=== PATIENT | female | born 1955 | race Caucasian/White ===

== ENCOUNTER → 2017-10-02 09:04 | Outpatient (CLI) | payer MEDICARE, SELFPAY ==
[2017-10-02 17:27] LABS: Absolute Lymphocyte Count 3.53 X10^3/ul (0.83-4.51); Absolute Neutrophil Count 10.2 X10^3/uL (2.0-7.7); Basophil# 0.03 X10^3/uL; Basophil% 0.2 % (0-1); Eosinophil# 0.23 X10^3/uL; Eosinophils% 1.5 % (0-5); Hematocrit 48.3 % (37-47); Hemoglobin 16.4 g/dl (12.0-15.0); Lymphocyte # 3.53 X10^3/ul (4.0); Lymphocyte % 23.5 % (19-41); Mean Corpuscular Hgb 31.3 pg (27.0-32.0); Mean Corpuscular Volume 92.2 fL (81-99); Mean Platelet Vol. 10.3 fl (6.2-12.0); Monocyte# 0.93 X10^3/uL; Monocyte% 6.2 % (0-10); Neutrophil # 10.24 X10^3/uL (2.7-7.7); Neutrophil % 68.3 % (47-70); Platelet Count 232 K/mm3 (150-450); RBC Distribution Width CV 13.3 % (11.6-14.6); RBC Distribution Width SD 44.1 fl (35.1-43.9); Red Blood Count 5.24 M/mm3 (4.2-5.4)
[2017-10-02 17:46] LABS: ALB/GLOB Ratio 0.9 RATIO (0.9-2.4); AST(SGOT) 31 U/L (15-37); Alanine Aminotransfer ALT/SGPT 38 U/L (13-56); Albumin, Serum 3.8 g/dL (3.2-5.0); Alkaline Phosphatase 104 U/L (45-117); Anion Gap 10 (5-15); BUN 8 mg/dL (7-18); BUN/Creat Ratio 8.8 RATIO (10-20); Calcium,Total 8.9 mg/dL (8.5-10.1); Chloride 105 mmol/L (98-107); Creatinine, Serum 0.91 mg/dL (0.55-1.02); EST Glomerular Filtration Rate 66 mL/min (>60); Est Glom Filt Rate - Afr Amer 80 mL/min (>60); Globulin 4.3 g/dL (2.2-4.2); Glucose 90 mg/dL (74-106); Protein, Total 8.1 g/dL (6.4-8.2); Sodium Level 140 mmol/L (136-145); Thyroid Stim Hormone (TSH) 1.59 uIU/mL (0.358-3.74)
[2017-10-02 17:50] LABS: POSITIVE COUNT NO; POSITIVE DIFFERENTIAL NO; POSITIVE MORPHOLOGY NO
[2017-10-03 08:59] LABS: Vitamin D,25 Hydroxy 44.9 ng/mL (29.95-100.01)
[2017-10-05 10:18] LABS: Hep C Antibodies 0.1 s/co ratio (0.0-0.9)
== END ==
PROVIDERS: Family Provider Family Medicine Geriatric Medicine; PCP Family Medicine Geriatric Medicine; Visit Provider Family Medicine Geriatric Medicine
DX: E11.9 Type 2 diabetes mellitus without complications (principal); E55.9 Vitamin D deficiency, unspecified; I10 Essential (primary) hypertension; Z13.89 Encounter for screening for other disorder
CPT/HCPCS: 36415; 80053; 82306; 84443; 85025; 86803

== ENCOUNTER → 2017-11-04 14:16 | Outpatient (CLI) | payer MEDICARE, SELFPAY | PROVIDERS: Family Provider Family Medicine Geriatric Medicine; PCP Family Medicine Geriatric Medicine; Visit Provider Family Medicine Geriatric Medicine | DX: Z87.891 Personal history of nicotine dependence (principal); Z12.2 Encounter for screening for malignant neoplasm of respiratory organs | CPT/HCPCS: G0297 ==

== ENCOUNTER → 2018-10-08 | Outpatient (CLI) | payer MEDICARE, SELFPAY ==
[2018-10-08 17:17] LABS: Absolute Lymphocyte Count 4.49 X10^3/uL (0.83-4.51); Absolute Neutrophil Count 5.4 X10^3/uL (2.0-7.7); Basophil# 0.07 X10^3/uL; Basophil% 0.6 % (0-1); Eosinophil# 0.17 X10^3/uL; Eosinophils% 1.6 % (0-5); Hemoglobin 15.4 g/dL (12.0-15.0); Lymphocyte # 4.49 X10^3/ul (4.0); Lymphocyte % 41.2 % (19-41); Mean Corp Hgb Conc 33.5 g/dL (32-36); Mean Corpuscular Hgb 30.9 pg (27.0-32.0); Mean Corpuscular Volume 92.2 fL (81-99); Mean Platelet Vol. 10.6 fl (6.2-12.0); Monocyte# 0.76 X10^3/uL; NRBC Flagged by Analyzer 0 % (0-5); Neutrophil # 5.36 X10^3/uL (2.7-7.7); Neutrophil % 49.2 % (47-70); Platelet Count 272 K/mm3 (150-450); RBC Distribution Width SD 44.2 fl (35.1-43.9); Red Blood Count 4.99 M/mm3 (4.2-5.4); White Blood Count 10.9 K/mm3 (4.4-11.0)
[2018-10-08 17:45] LABS: ALB/GLOB Ratio 0.9 RATIO (0.9-2.4); AST(SGOT) 30 U/L (15-37); Alanine Aminotransfer ALT/SGPT 34 U/L (13-56); Albumin, Serum 3.6 g/dL (3.2-5.0); Alkaline Phosphatase 100 U/L (45-117); Anion Gap 10 (5-15); BUN 10 mg/dL (7-18); BUN/Creat Ratio 11.1 RATIO (10-20); Calcium,Total 8.9 mg/dL (8.5-10.1); Chloride 105 mmol/L (98-107); EST Glomerular Filtration Rate 68 mL/min (>60); Est Glom Filt Rate - Afr Amer 82 mL/min (>60); Globulin 4.1 g/dL (2.2-4.2); Glucose 89 mg/dL (74-106); Potassium 3.8 mmol/L (3.5-5.1); Protein, Total 7.7 g/dL (6.4-8.2); Sodium Level 138 mmol/L (136-145)
== END | disposition home or self-care (01) ==
LOC: POLAB3 13:08
PROVIDERS: Family Provider Family Medicine Geriatric Medicine; PCP Family Medicine Geriatric Medicine; Visit Provider Family Medicine Geriatric Medicine
DX: E11.9 Type 2 diabetes mellitus without complications (principal); E55.9 Vitamin D deficiency, unspecified; I10 Essential (primary) hypertension
CPT/HCPCS: 36415; 80053; 82306; 84443; 85025

== ENCOUNTER → 2018-11-17 12:47 | Outpatient (CLI) | payer MEDICARE, SELFPAY ==
[2018-11-17 12:25] VITALS: BMI 30.8
--- NOTE | 2018-11-17 12:50 | CT_ITS ---
STUDY: LOW DOSE CT LUNG CANCER SCREENING REASON FOR EXAM: Female, 63 years old. RADIATION DOSAGE (If Supplied By Facility): CTDIvol = ( 3.02 ) mGy, DLP = ( 86.11 ) mGycm TECHNIQUE: No contrast was administered. Low dose technique was utilized (average mAS-38 and kVp 120). 1.25 mm axial source images with a slice interval of 1.25-mm were reconstructed in lung windows. 2.5 mm axial source images with a slice interval of 2.5-mm were reconstructed in lung windows. 5.0 mm axial source images with a slice interval of 5.0-mm were reconstructed in soft tissue windows. Nodule measured using lung windows on PACS and/or independent workstation with automated measurement of minimum and maximum diameter. Nodule measurement reported as average diameter rounded to the nearest whole number. Growth is defined as an increase ins size of greater than 1.5 mm. COMPARISON: CT chest 11/04/2017. FINDINGS: Lung nodules Stable noncalcified 3 mm pulmonary nodule in the right upper lobe on series 2 image 93. Stable Noncalcified 4 mm pulmonary nodule in the right upper lobe on image 115. Densely calcified pulmonary nodule along the fissure in the right upper lobe anterior anterior segment that is stable compared to prior imaging. No new or enlarging pulmonary nodule. Lungs COPD: Mild. Fibrosis: None. Lymph nodes: There are calcified right hilar lymph nodes. No adenopathy. Other findings: None. Pleural space Effusion: None. Calcification: None. Thickening: None. Heart Heart size: Normal. Coronary calcification: None. Pericardial effusion: None. Other findings: Trace aortic atherosclerotic disease. Upper abdomen: None. Thorax: None. Base of neck: None. CT/Low Dose CT Lung Screening IMPRESSION: Lung-RADS category 2 - Continue annual screening with LDCT in 12 months. IMPORTANT NOTES FOR USE: ACR Lung-RADS Version 1.0 Assessment Categories Release Date: July 19, 2013 Category: Coded 0-4 bases on nodule(s) with highest degree of suspicion. Negative screen is defined as categories 1 and 2; a positive screen is defined as categories 3 and 4. Category 3 and 4A nodules that are unchanged on interval CT should be coded as category 2, and individuals returned to screening in 12 months. Category 4X: Category 3 or 4 nodules with additional imaging findings that increase the suspicion of lung cancer, such as spiculation, GGN that doubles in size in 1 year, enlarged lymph notes, etc. Category Modifiers: S (significant finding unrelated to lung cancer) and C (prior history of treated lung cancer) may be added to the 0-4 Lung-RADS Electronically Signed: Jeanie Palumbo, at 13:39 EDT Tel , Service support ,
== END ==
PROVIDERS: Family Provider Family Medicine Geriatric Medicine; PCP Family Medicine Geriatric Medicine; Referring Provider Nurse Practitioner Family; Visit Provider Nurse Practitioner Family
DX: F17.209 Nicotine dependence, unspecified, with unspecified nicotine-induced disorders (principal); D75.1 Secondary polycythemia; D72.829 Elevated white blood cell count, unspecified; Z12.2 Encounter for screening for malignant neoplasm of respiratory organs; Z87.891 Personal history of nicotine dependence
CPT/HCPCS: 36415; 85025; G0297

== ENCOUNTER → 2019-04-08 13:26 | Outpatient (CLI) | payer MEDICARE, SELFPAY ==
[2018-11-17 14:13] VITALS: BMI 30.8
[2019-04-08 16:42] LABS: Absolute Lymphocyte Count 5.12 X10^3/uL (0.83-4.51); Basophil# 0.07 X10^3/uL; Basophil% 0.5 % (0-1); Eosinophil# 0.16 X10^3/uL; Eosinophils% 1.2 % (0-5); Hematocrit 46.2 % (37-47); Hemoglobin 15.1 g/dL (12.0-15.0); Lymphocyte # 5.12 X10^3/ul (4.0); Mean Corp Hgb Conc 32.7 g/dL (32-36); Mean Corpuscular Volume 91.8 fL (81-99); Mean Platelet Vol. 10.5 fl (6.2-12.0); Monocyte% 6.1 % (0-10); NRBC Flagged by Analyzer 0 % (0-5); Neutrophil # 6.95 X10^3/uL (2.7-7.7); Neutrophil % 52.9 % (47-70); POSITIVE DIFFERENTIAL YES; Platelet Count 272 K/mm3 (150-450); RBC Distribution Width CV 12.8 % (11.6-14.6); RBC Distribution Width SD 43.3 fl (35.1-43.9); Red Blood Count 5.03 M/mm3 (4.2-5.4); White Blood Count 13.1 K/mm3 (4.4-11.0)
[2019-04-08 16:50] LABS: Differential Indicated SCAN CRITERIA MET
[2019-04-08 17:06] LABS: Vitamin D,25 Hydroxy 49.1 ng/mL (29.95-100.01)
[2019-04-08 17:12] LABS: ALB/GLOB Ratio 0.9 RATIO (0.9-2.4); AST(SGOT) 22 U/L (15-37); Alanine Aminotransfer ALT/SGPT 28 U/L (13-56); Albumin, Serum 3.5 g/dL (3.2-5.0); Alkaline Phosphatase 93 U/L (45-117); Anion Gap 8 (5-15); BUN 11 mg/dL (7-18); BUN/Creat Ratio 11.5 RATIO (10-20); Calcium,Total 9.3 mg/dL (8.5-10.1); Chloride 106 mmol/L (98-107); Creatinine, Serum 0.96 mg/dL (0.55-1.02); EST Glomerular Filtration Rate 63 mL/min (>60); Est Glom Filt Rate - Afr Amer 76 mL/min (>60); Glucose 90 mg/dL (74-106); Potassium 4.1 mmol/L (3.5-5.1); Protein, Total 7.5 g/dL (6.4-8.2); Sodium Level 140 mmol/L (136-145); Thyroid Stim Hormone (TSH) 1.58 uIU/mL (0.358-3.74)
[2019-04-08 17:28] LABS: Platelet Estimate ADEQUATE (ADEQ); Red Cell Morphology NORM C+C NORMAL (NORM C&C)
== END ==
PROVIDERS: PCP Family Medicine Geriatric Medicine; Visit Provider Family Medicine Geriatric Medicine
DX: E11.9 Type 2 diabetes mellitus without complications (principal); E55.9 Vitamin D deficiency, unspecified; I10 Essential (primary) hypertension
CPT/HCPCS: 36415; 80053; 82306; 84443; 85025

== ENCOUNTER → 2019-04-22 | Outpatient (CLI) | payer MEDICARE, SELFPAY ==
[2018-11-17 14:13] VITALS: BMI 30.8
[2019-04-22 12:26] LABS: Absolute Lymphocyte Count 3.44 X10^3/uL (0.83-4.51); Absolute Neutrophil Count 11.4 X10^3/uL (2.0-7.7); Basophil# 0.06 X10^3/uL; Basophil% 0.4 % (0-1); Eosinophil# 0.05 X10^3/uL; Eosinophils% 0.3 % (0-5); Hematocrit 47.8 % (37-47); Hemoglobin 15.8 g/dL (12.0-15.0); Lymphocyte # 3.44 X10^3/ul (4.0); Lymphocyte % 21.2 % (19-41); Mean Corp Hgb Conc 33.1 g/dL (32-36); Mean Corpuscular Volume 90.7 fL (81-99); Mean Platelet Vol. 10.2 fl (6.2-12.0); Monocyte% 7.4 % (0-10); NRBC Flagged by Analyzer 0 % (0-5); Neutrophil % 70.4 % (47-70); Platelet Count 272 K/mm3 (150-450); RBC Distribution Width CV 12.7 % (11.6-14.6); RBC Distribution Width SD 42.7 fl (35.1-43.9); Red Blood Count 5.27 M/mm3 (4.2-5.4); White Blood Count 16.2 K/mm3 (4.4-11.0)
[2019-04-22 12:49] LABS: Anion Gap 5 (5-15); BUN 11 mg/dL (7-18); BUN/Creat Ratio 10.9 RATIO (10-20); Chloride 104 mmol/L (98-107); Creatinine, Serum 1.01 mg/dL (0.55-1.02); EST Glomerular Filtration Rate 59 mL/min (>60); Est Glom Filt Rate - Afr Amer 71 mL/min (>60); Glucose 99 mg/dL (74-106); Potassium 4.4 mmol/L (3.5-5.1); Sodium Level 136 mmol/L (136-145)
== END | disposition home or self-care (01) ==
LOC: POLAB3 10:43
PROVIDERS: PCP Family Medicine Geriatric Medicine; Visit Provider Family Medicine Geriatric Medicine
DX: R10.9 Unspecified abdominal pain (principal)
CPT/HCPCS: 36415; 80048; 85025; 87086

== ENCOUNTER → 2019-04-22 | Outpatient (CLI) | payer MEDICARE, SELFPAY ==
[2018-11-17 14:13] VITALS: BMI 30.8
--- NOTE | 2019-04-22 12:41 | CT_ITS ---
STUDY: CT ABDOMEN AND PELVIS WITHOUT CONTRAST REASON FOR EXAM: Female, 64 years old. LLQ PAIN, HX OVARIAN CANCER, HYSTERECTOMY RADIATION DOSAGE (If Supplied By Facility): CTDIvol = ( 10.94 ) mGy, DLP = ( 550.46 ) mGycm TECHNIQUE: Transaxial images were obtained from the dome of the diaphragm to the symphysis pubis without oral contrast, and without intravenous contrast. Sagittal and coronal images were reconstructed. Individualized dose optimization techniques were used for this CT. COMPARISON: Comparison is made with prior examination dated September 16, 2011. FINDINGS: Minimal increased linear markings at the left lung base suggestive of mild basilar scarring. Coronary artery calcification. There is decreased attenuation of the liver consistent with steatosis. Hepatomegaly. Normal gallbladder and extrahepatic biliary system. There are multiple benign calcified granulomata of the spleen. Normal pancreas. Normal bilateral adrenal glands. Normal right kidney. Mild degree of bilateral hydronephrosis due to a 3 mm calculus in the proximal portion of the left ureter. Normal visualized stomach. Normal small intestine. There are multiple colonic diverticula consistent with diverticulosis. The appendix is visualized and appears normal. There is diffuse atherosclerotic calcification of the abdominal aorta, without a demonstrated aneurysm. Normal inferior vena cava. There is borderline retroperitoneal lymphadenopathy with enlarged nodes no greater than 10mm in the short axis diameter. Normal urinary bladder. There is absence of the uterus consistent with a prior hysterectomy. There is a small umbilical hernia containing fat. There are diffuse degenerative changes of the visualized lumbar spine. CT/Abdomen/Pelvis without Cont IMPRESSION: 3 mm calculus in the proximal portion of the left ureter causing a mild degree of left hydronephrosis. Hepatomegaly with diffuse fatty infiltration of the liver. Electronically Signed: Jose Elias Mccracken, at 13:40 EST , Service support ,
== END | disposition home or self-care (01) ==
PROVIDERS: PCP Family Medicine Geriatric Medicine; Referring Provider Family Medicine Geriatric Medicine; Visit Provider Family Medicine Geriatric Medicine
DX: K57.32 Diverticulitis of large intestine without perforation or abscess without bleeding (principal); N20.0 Calculus of kidney; N39.0 Urinary tract infection, site not specified; R10.9 Unspecified abdominal pain
CPT/HCPCS: 36415; 74176; 80048; 85025; 87086; 87088

== ENCOUNTER → 2019-10-13 | Outpatient (CLI) | payer MEDICARE, SELFPAY ==
[2018-11-17 14:13] VITALS: BMI 30.8
[2019-10-13 14:50] LABS: Absolute Lymphocyte Count 4.57 X10^3/uL (0.83-4.51); Absolute Neutrophil Count 6.7 X10^3/uL (2.0-7.7); Basophil# 0.07 X10^3/uL; Basophil% 0.6 % (0-1); Eosinophil# 0.17 X10^3/uL; Eosinophils% 1.4 % (0-5); Hematocrit 48.6 % (37-47); Hemoglobin 16.3 g/dL (12.0-15.0); Lymphocyte # 4.57 X10^3/ul (4.0); Lymphocyte % 37.2 % (19-41); Mean Corp Hgb Conc 33.5 g/dL (32-36); Mean Corpuscular Hgb 30.9 pg (27.0-32.0); Mean Platelet Vol. 10.6 fl (6.2-12.0); Monocyte# 0.81 X10^3/uL; Monocyte% 6.6 % (0-10); NRBC Flagged by Analyzer 0 % (0-5); Neutrophil # 6.65 X10^3/uL (2.7-7.7); Platelet Count 264 K/mm3 (150-450); RBC Distribution Width CV 13.4 % (11.6-14.6); RBC Distribution Width SD 45.6 fl (35.1-43.9); Red Blood Count 5.28 M/mm3 (4.2-5.4); White Blood Count 12.3 K/mm3 (4.4-11.0)
[2019-10-13 15:14] LABS: Vitamin D,25 Hydroxy 140.2 ng/mL
[2019-10-13 15:16] LABS: ALB/GLOB Ratio 0.9 RATIO (0.9-2.4); AST(SGOT) 22 U/L (15-37); Alanine Aminotransfer ALT/SGPT 26 U/L (13-56); Albumin, Serum 3.6 g/dL (3.2-5.0); Alkaline Phosphatase 86 U/L (45-117); Anion Gap 5 (5-15); BUN 8 mg/dL (7-18); BUN/Creat Ratio 8.7 RATIO (10-20); Calcium,Total 8.7 mg/dL (8.5-10.1); Chloride 103 mmol/L (98-107); Creatinine, Serum 0.92 mg/dL (0.55-1.02); EST Glomerular Filtration Rate 66 mL/min (>60); Est Glom Filt Rate - Afr Amer 79 mL/min (>60); Glucose 78 mg/dL (74-106); Potassium 3.9 mmol/L (3.5-5.1); Protein, Total 7.6 g/dL (6.4-8.2); Sodium Level 136 mmol/L (136-145); Thyroid Stim Hormone (TSH) 2.03 uIU/mL (0.358-3.74)
== END | disposition home or self-care (01) ==
LOC: POLAB3 14:17
PROVIDERS: PCP Family Medicine Geriatric Medicine; Visit Provider Family Medicine Geriatric Medicine
DX: E11.9 Type 2 diabetes mellitus without complications (principal); E55.9 Vitamin D deficiency, unspecified; I10 Essential (primary) hypertension
CPT/HCPCS: 36415; 80053; 82306; 84443; 85025

== ENCOUNTER → 2020-04-12 13:26 | Outpatient (CLI) | payer MEDICARE, SELFPAY ==
[2018-11-17 14:13] VITALS: BMI 30.8
--- NOTE | 2020-04-12 14:26 | RAD_ITS ---
STUDY: X-RAY - CERVICAL SPINE REASON FOR EXAM: Female, 65 years old. pt states constant neck pain x 1.5 months, numbness and pain goes down right arm into elbow x 1.5 months TECHNIQUE: 3 view(s) of the cervical spine were obtained. COMPARISON: None FINDINGS: Normal anterior atlantoaxial articulation. Normal odontoid process. Normal cervical lordosis. There is multi-level endplate spondylosis. There is multi-level degenerative disc disease with multilevel disc space narrowing. The soft tissue structures are unremarkable. RAD/Cerv Spine 2 or 3 Views IMPRESSION: Degenerative changes Electronically Signed: Gary Layne DO at 1:19 EST Tel , Service support ,
[2020-04-12 16:11] LABS: Absolute Lymphocyte Count 4.22 X10^3/uL (0.83-4.51); Absolute Neutrophil Count 7.1 X10^3/uL (2.0-7.7); Basophil# 0.07 X10^3/uL; Basophil% 0.6 % (0-1); Eosinophil# 0.18 X10^3/uL; Eosinophils% 1.5 % (0-5); Hematocrit 49.8 % (37-47); Hemoglobin 16.3 g/dL (12.0-15.0); Lymphocyte # 4.22 X10^3/ul (4.0); Lymphocyte % 34.3 % (19-41); Mean Corp Hgb Conc 32.7 g/dL (32-36); Mean Corpuscular Hgb 30.1 pg (27.0-32.0); Mean Corpuscular Volume 92.1 fL (81-99); Mean Platelet Vol. 10.7 fl (6.2-12.0); Monocyte# 0.77 X10^3/uL; Monocyte% 6.3 % (0-10); NRBC Flagged by Analyzer 0 % (0-5); Neutrophil # 7.06 X10^3/uL (2.7-7.7); Neutrophil % 57.1 % (47-70); Platelet Count 260 K/mm3 (150-450); RBC Distribution Width CV 13.2 % (11.6-14.6); Red Blood Count 5.41 M/mm3 (4.2-5.4); White Blood Count 12.3 K/mm3 (4.4-11.0)
[2020-04-12 16:44] LABS: Vitamin D,25 Hydroxy 65.1 ng/mL
[2020-04-12 16:49] LABS: ALB/GLOB Ratio 0.9 RATIO (0.9-2.4); AST(SGOT) 22 U/L (15-37); Alanine Aminotransfer ALT/SGPT 26 U/L (13-56); Albumin, Serum 3.7 g/dL (3.2-5.0); Alkaline Phosphatase 78 U/L (45-117); Anion Gap 8 (5-15); BUN 11 mg/dL (7-18); BUN/Creat Ratio 12.4 RATIO (10-20); Calcium,Total 8.4 mg/dL (8.5-10.1); Chloride 106 mmol/L (98-107); Creatinine, Serum 0.88 mg/dL (0.55-1.02); EST Glomerular Filtration Rate 68 mL/min (>60); Est Glom Filt Rate - Afr Amer 83 mL/min (>60); Globulin 3.9 g/dL (2.2-4.2); Glucose 72 mg/dL (74-106); Potassium 3.7 mmol/L (3.5-5.1); Protein, Total 7.6 g/dL (6.4-8.2); Sodium Level 139 mmol/L (136-145); Thyroid Stim Hormone (TSH) 1.85 uIU/mL (0.358-3.74)
== END ==
PROVIDERS: PCP Family Medicine Geriatric Medicine; Referring Provider Family Medicine Geriatric Medicine; Visit Provider Family Medicine Geriatric Medicine
DX: E11.9 Type 2 diabetes mellitus without complications (principal); E55.9 Vitamin D deficiency, unspecified; I10 Essential (primary) hypertension; M54.12 Radiculopathy, cervical region
CPT/HCPCS: 36415; 72040; 80053; 82306; 84443; 85025

== ENCOUNTER → 2020-05-22 12:49 | Outpatient (CLI) | payer MEDICARE, SELFPAY ==
[2018-11-17 14:13] VITALS: BMI 30.8
--- NOTE | 2020-05-22 13:53 | NEURO_ITS ---
NCS and/or EMG Patient Report Ordering Doctor: Renan Rubi Chi DATE OF SERVICE: 05/22/20 Indication: Pain, numbness and tingling in the proximal right upper extremity for the last 2 months. Occasional weakness and tinging in the right hand. Evaluate for cervical radiculopathy (patient requests only right arm be tested). Findings: Nerve conduction studies were performed in the right upper extremity. The right median motor study recording the abductor pollicis brevis showed a normal amplitude, normal distal latency and normal conduction velocity. The right ulnar motor study recording the abductor digiti minimi showed a normal amplitude, normal distal latency and normal conduction velocity. No conduction block or foc al slowing was present across the elbow. The right median sensory response recording digit two showed a normal amplitude, latency and conduction velocity. The right ulnar sensory response recording digit five showed a normal amplitude, latency and conduction velocity. The right radial sensory response recording over the extensor snuff box showed a normal amplitude, latency and conduction velocity. As the sensory symptoms of a C6-7 radiculopathy are similar to those of median entrapment at the wrist, additional internal comparison studies were done to help exclude a possible median neuropathy at the wrist. Right median-ulnar lumbrical / interosseous motor latencies showed no significant difference. Needle EMG of the right upper extremity and cervical paraspinal muscles was performed. No denervation was seen in any muscle. All motor unit morphology, activation and recruitment patterns were normal. Impression: This is a normal study. There is no electrophysiologic evidence of cervical radiculopathy in the right upper extremity. In addition, there was no electrophysiologic evidence of median or ulnar entrapment neuropathy in either the right upper extremity. Please note: the electrodiagnosis of radiculopathy is made on the basis of excluding peripheral nerve lesions on nerve conduction studies and the needle EMG demonstrating denervation and/or reinnervation in the distribution of one or more nerve roots (i.e., acute and/or chronic axonal loss). Thus, electrodiagnostic studies are insensitive in detecting radiculopathy in the absence of axonal loss (e.g., in the setting of compression resulting in intermittent ischemia or mechanical deformation; or demyelination without axonal loss). Thus, clinical correlation is required in the interpretation of this negative electrodiagnostic study for radiculopathy. Ravin Koch D.O.
== END ==
PROVIDERS: PCP Family Medicine Geriatric Medicine; Referring Provider Family Medicine Geriatric Medicine; Visit Provider Family Medicine Geriatric Medicine
DX: M79.641 Pain in right hand (principal); M79.642 Pain in left hand
CPT/HCPCS: 95886; 95910

== ENCOUNTER → 2020-10-16 12:52 | Outpatient (CLI) | payer MEDICARE, SELFPAY ==
[2018-11-17 14:13] VITALS: BMI 30.8
[2020-10-16 14:20] LABS: Absolute Neutrophil Count 12.4 X10^3/uL (2.0-7.7); Basophil# 0.08 X10^3/uL; Basophil% 0.4 % (0-1); Eosinophil# 0.15 X10^3/uL; Eosinophils% 0.8 % (0-5); Lymphocyte % 23.9 % (19-41); Mean Corpuscular Hgb 31.7 pg (27.0-32.0); Mean Corpuscular Volume 93.1 fL (81-99); Mean Platelet Vol. 10.2 fl (6.2-12.0); Monocyte# 0.99 X10^3/uL; Monocyte% 5.5 % (0-10); NRBC Flagged by Analyzer 0 % (0-5); Neutrophil # 12.41 X10^3/uL (2.7-7.7); Neutrophil % 69.1 % (47-70); Platelet Count 251 K/mm3 (150-450); RBC Distribution Width CV 12.8 % (11.6-14.6); RBC Distribution Width SD 43.8 fl (35.1-43.9); Red Blood Count 5.05 M/mm3 (4.2-5.4)
[2020-10-16 14:34] LABS: Vitamin D,25 Hydroxy 53.8 ng/mL
[2020-10-16 14:49] LABS: ALB/GLOB Ratio 0.9 RATIO (0.9-2.4); AST(SGOT) 21 U/L (15-37); Alanine Aminotransfer ALT/SGPT 22 U/L (13-56); Albumin, Serum 3.7 g/dL (3.2-5.0); Alkaline Phosphatase 68 U/L (45-117); Anion Gap 7 (5-15); BUN 9 mg/dL (7-18); BUN/Creat Ratio 10.5 RATIO (10-20); Calcium,Total 8.9 mg/dL (8.5-10.1); Chloride 107 mmol/L (98-107); Creatinine, Serum 0.86 mg/dL (0.55-1.02); EST Glomerular Filtration Rate 71 mL/min (>60); Est Glom Filt Rate - Afr Amer 86 mL/min (>60); Globulin 3.9 g/dL (2.2-4.2); Glucose 91 mg/dL (74-106); Protein, Total 7.6 g/dL (6.4-8.2); Sodium Level 138 mmol/L (136-145); Thyroid Stim Hormone (TSH) 1.62 uIU/mL (0.358-3.74)
== END ==
PROVIDERS: PCP Family Medicine Geriatric Medicine; Visit Provider Family Medicine Geriatric Medicine
DX: E11.9 Type 2 diabetes mellitus without complications (principal); E55.9 Vitamin D deficiency, unspecified; I10 Essential (primary) hypertension
CPT/HCPCS: 36415; 80053; 82306; 84443; 85025

== ENCOUNTER → 2020-10-24 | Outpatient (CLI) | payer MEDICARE, SELFPAY ==
[2018-11-17 14:13] VITALS: BMI 30.8
--- NOTE | 2020-10-24 09:20 | LES_PTH ---
PATIENT: ELLIS MORRIS LOC: [facility] U#:[id number] AGE/SX: 65/F ROOM: RE10/24/[address]: Dr. Renan Rubi MD : 1955 BED: DIS: 10/24/2020 SPEC #: [id number] RECD: 10/24/20 12:25 STATUS: SKYE CORNELIO #: [id number] BEBO: 10/24/20 09:[address]: Renan Rubi Chi DEPT: SURGICAL PATHOLOGY RECD BY: Kristen Herbert Tissues: A - Skin of leg, NOS B - Skin of external ear, NOS C - Skin of abdomen, NOS Procedures: Surgery Specimen Level IV HEADER OPERATION: Biopsy PRE-OP DIAGNOSIS: Lesions TISSUE SUBMITTED: A ? Left leg, B ? Left ear, C - Abdomen MICROSCOPIC DIAGNOSIS A. 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 See comment. B. Skin lesion of left ear, shave biopsy: Consistent with benign keratosis, keratoacanthomatous type. Solar elastosis. C. Skin lesion of abdomen, shave biopsy: Seborrheic keratosis mildly inflamed. AM:eder 10/25/2020 COMMENT A. The lesion is present at <1 mm from the deep margin of excision. Clinical correlation is suggested. Case has been reviewed in consultation with Dr. Benitez who concurs with the above diagnosis. IDC:SJ MICROSCOPIC DESCRIPTION Slides are reviewed. GROSS DESCRIPTION A - Received in fixative is one container labeled with the patient's name and designated left leg. The specimen consists of a round piece of andino-white skin measuring 0.7 x 0.7 x 0.2 cm. The specimen is inked and submitted entirely in one cassette. It will be sectioned at the time of embedding. B - Received in fixative is one container labeled with the patient's name and designated left ear. The specimen consists of a shave biopsy of andino-white skin measuring 0.6 x 0.2 x 0.1 cm. The specimen is inked and submitted entirely in one cassette. It will be sectioned at the time of embedding. C - Received in fixative is one container labeled with the patient's name and designated abdomen. The specimen consists of a piece of andino-white skin measuring 1 x 0.8 x 0.2 cm. There is a round brown lesion on the surface measuring 0.7 cm in diameter. The specimen is inked and submitted entirely in one cassette. It will be sectioned at the time of embedding. / PANKAJ:eder 10/24/20 TC:0 CPT: 75308 x3
== END | disposition home or self-care (01) ==
LOC: LABSPEC 12:37
PROVIDERS: PCP Family Medicine Geriatric Medicine; Referring Provider Family Medicine Geriatric Medicine; Visit Provider Family Medicine Geriatric Medicine
DX: L98.9 Disorder of the skin and subcutaneous tissue, unspecified (principal)
CPT/HCPCS: 88305

== ENCOUNTER → 2020-11-14 12:50 | Outpatient (CLI) | payer MEDICARE, SELFPAY ==
[2020-10-26 13:04] VITALS: BMI 27.4
--- NOTE | 2020-11-14 12:51 | CT_ITS ---
STUDY: LOW DOSE CT LUNG CANCER SCREENING REASON FOR EXAM: Female, 65 years old. LUng cancer screening -- 47 pack year history; current smoker; asymptomatic RADIATION DOSAGE (If Supplied By Facility): CTDIvol = ( 2.01 ) mGy, DLP = ( 65.95 ) mGycm TECHNIQUE: No contrast was administered. Low dose technique was utilized (average mAS-38 and kVp 120). 1.25 mm axial source images with a slice interval of 1.25-mm were reconstructed in lung windows. 2.5 mm axial source images with a slice interval of 2.5-mm were reconstructed in lung windows. 5.0 mm axial source images with a slice interval of 5.0-mm were reconstructed in soft tissue windows. Nodule measured using lung windows on PACS and/or independent workstation with automated measurement of minimum and maximum diameter. Nodule measurement reported as average diameter rounded to the nearest whole number. Growth is defined as an increase ins size of greater than 1.5 mm. COMPARISON: Comparison is made with prior examination dated 11/17/2018. NODULES: Stable 3 mm noncalcified nodule in the right upper lobe anteriorly as seen on axial image #108. Total lung nodules (excluding granulomas): Stable 1.5 cm densely calcified nodule in the posterior aspect of the right upper lobe. Stable 4 mm noncalcified nodule in the anterior aspect of the right upper lobe as seen on the axial image #128. Emphysema: Stable linear scarring at the lung apices with small bullous changes. Centrilobular emphysematous changes seen in the upper lobes. Aorta: Atherosclerotic plaque formation. Coronary arteries: No significant calcification is seen. Heart: Pulmonary artery: Mediastinal nodes: Small benign-appearing mediastinal lymph nodes. Calcified right hilar lymph node. Other chest and abdominal findings: Calcified splenic granulomas. CT/Low Dose CT Lung Screening IMPRESSION: Lung-RADS category 2 - Continue annual screening with LDCT in 12 months. IMPORTANT NOTES FOR USE: ACR Lung-RADS Version 1.1 Assessment Categories Release Date: 2018 Category: Coded 0-4 bases on nodule(s) with highest degree of suspicion. Negative screen is defined as categories 1 and 2; a positive screen is defined as categories 3 and 4. Category 3 and 4A nodules that are unchanged on interval CT should be coded as category 2, and individuals returned to screening in 12 months. Category 4X: Category 3 or 4 nodules with additional imaging findings that increase the suspicion of lung cancer, such as spiculation, GGN that doubles in size in 1 year, enlarged lymph notes, etc. Category Modifiers: S (significant finding unrelated to lung cancer) Electronically Signed: Jose Elias Mccracken MD at 13:44 EDT , Service support ,
== END ==
PROVIDERS: PCP Family Medicine Geriatric Medicine; Referring Provider Nurse Practitioner Family; Visit Provider Nurse Practitioner Family
DX: Z12.2 Encounter for screening for malignant neoplasm of respiratory organs (principal); Z87.891 Personal history of nicotine dependence
CPT/HCPCS: 71271

== ENCOUNTER 2020-12-29 10:40 | Day surgery (SDC) | payer MEDICARE, SELFPAY ==
--- NOTE | 2020-12-26 11:55 | EKG12_ITS ---
Test Reason : PRE-OP Blood Pressure : / mmHG Vent. Rate : 071 BPM Atrial Rate : 071 BPM P-R Int : 156 ms QRS Dur : 082 ms QT Int : 422 ms P-R-T Axes : 055 026 034 degrees QTc Int : 458 ms Normal sinus rhythm Normal ECG Confirmed by MILEY COLLADO, RENATA ([id number]), tape editor AMALIA MONTOYA ([id number]) on 12/26/2020 1:00:36 PM Referred By: Tanner Rice Confirmed By:RENATA TRENT MD
[2020-12-26 12:36] LABS: Hematocrit 48.5 % (37-47); Mean Corpuscular Hgb 30.8 pg (27.0-32.0); Mean Corpuscular Volume 93.4 fL (81-99); Platelet Count 234 K/mm3 (150-450); RBC Distribution Width CV 12.4 % (11.6-14.6); RBC Distribution Width SD 42.7 fl (35.1-43.9); Red Blood Count 5.19 M/mm3 (4.2-5.4); White Blood Count 12.1 K/mm3 (4.4-11.0)
[2020-12-26 13:18] LABS: Hemoglobin A1c 5.9 % (3.8-5.6)
[2020-12-26 13:29] LABS: Anion Gap 7 (5-15); BUN 11 mg/dL (7-18); BUN/Creat Ratio 12.8 RATIO (10-20); Chloride 104 mmol/L (98-107); Creatinine, Serum 0.86 mg/dL (0.55-1.02); EST Glomerular Filtration Rate 71 mL/min (>60); Est Glom Filt Rate - Afr Amer 85 mL/min (>60); Glucose 78 mg/dL (74-106); Sodium Level 139 mmol/L (136-145)
--- NOTE | 2020-12-29 | LES_PTH ---
PATIENT: ELLIS [place]ORRIS [place] [facility] [id number] AGE/SX: 65/F ROOM: RE12/29/[address]: Dr. Tanner Rice MD : 1955 BED: DIS: 12/29/2020 SPEC #: [id number] RECD: 12/29/20 13:30 STATUS: SKYE REQ #: [id number] BEBO: 12/29/20 00:[address]: Tanner Rice DEPT: SURGICAL PATHOLOGY RECD BY: Ana Magallanes ENTERED: 12/29/20 14:13 SP TYPE: Lesion OTHR DR: Dr. Renan Rubi MD Tissues: A - Skin of eyelid, NOS B - Skin of external ear, NOS C - Skin of leg, NOS D - Skin of eyelid, NOS E - Skin of breast, NOS Procedures: Frozen Section (charge) Surgery Specimen Level IV HEADER OPERATION: Excision squamous cell cancer left anteromedial leg PRE-OP DIAGNOSIS: 7 mm minimally invasive well-differentiated squamous cell carcinoma, keratoacanthomatous type, left anteromedial leg; 6 mm benign keratosis, keratoacanthomatous type and solar elastosis superficial helical rim left ear; 5 mm lesion left medial lower eyelid at medial canthus; 3 mm lesion left lateral lower eyelid; 4 mm lesion right breast crease (inframammary fold); epiphora left eye TISSUE SUBMITTED: A - 5 mm lesion left medial lower eyelid at medial canthus, FS, B - 6 mm benign keratosis, keratoacanthomatous type, and solar superior helical rim left ear, FS, C - 7 mm minimally invasive well-differentiated squamous cell carcinoma, keratoacanthomatous type, left anteromedial leg, D??3 mm lesion left lateral lower eyelid, E - 4 mm lesion right breast crease (inframammary fold) FROZEN SECTION DIAGNOSIS A. Left medial lower eyelid lesion, shave biopsy: Favor benign follicular lesion, final pending permanent sections. B. Superior helical rim, left ear lesion, shave biopsy: Mild actinic keratosis. Negative for carcinoma. PANKAJ:eder 12/29/2020 Case has been reviewed in consultation with Dr. Zuniga who concurs with the above diagnosis. IDC:AM MICROSCOPIC DIAGNOSIS A. Left medial lower eyelid lesion, biopsy: Benign adnexal lesion, favor trichofolliculoma. B. Superior helical ring, left ear lesion, shave biopsy: Mild actinic keratosis. Solar elastosis. Dermal chronic inflammation. C. Left anteromedial leg lesion, biopsy: Dermal fibrosis consistent with scar. Negative for carcinoma. Mild actinic keratosis. D. Left lateral lower eyelid lesion, biopsy: Seborrheic keratosis with features of actinic keratosis. E. Right breast crease lesion (inframammary fold), biopsy: Seborrheic keratosis. Mild actinic keratosis. PANKAJ:eder 01/02/2021 COMMENT Please make reference to previous specimen ([id number]) skin lesion of left leg, shave biopsy with diagnosis of ?minimally invasive well-differentiated squamous cell carcinoma, keratoacanthomatous type.? Case has been reviewed in consultation with Dr. Zuniga who concurs with the above diagnosis. IDC:AM MICROSCOPIC DESCRIPTION Slides are reviewed. GROSS DESCRIPTION A - Received fresh for frozen section diagnosis labeled with the patient's name is a specimen designated lesion left medial lower eyelid. The specimen consists of a piece of andino-white skin measuring 0.5 x 0.1 x 0.1 cm. The entire specimen is submitted for frozen section diagnosis in one cassette. / SJ:eder 12/29/20 B - Received fresh for frozen section diagnosis labeled with the patient's name is a specimen designated 6 mm benign keratosis, keratoacanthomatous type, solar elastosis superior medial helical ring left ear. The specimen consists of a piece of andino-white skin measuring 0.5 x 0.5 x 0.1 cm. The specimen is inked, bisected and submitted entirely for frozen section diagnosis in one cassette. / SJ:eder 12/29/20 C - Received in fixative is one container labeled with the patient's name and designated 7 mm minimally invasive well-differentiated squamous cell carcinoma, keratoacanthomatous type, left anteromedial leg. The specimen consists of a round piece of andino-brown skin measuring 1.5 x 1.5 cm and up to 0.3 cm in thickness. A focal area of ulceration is noted measuring 0.5 x 0.5 cm. A suture is noted identifying the 12 o?clock position. The specimen is inked as follows: 12 to 3 o?clock - black, 3 to 6 o?clock - blue, 6 to 9 o?clock - green and 9 to 12 o?clock - yellow. The specimen serially sectioned and submitted entirely in one cassette. D - Received in fixative is one container labeled with the patient's name and designated 3 mm lesion left lateral lower eyelid. The specimen consists of a piece of brownish-black skin measuring 0.4 x 0.2 x 0.1 cm. The entire specimen is submitted in one cassette. E - Received in fixative is one container labeled with the patient's name and designated 4 mm lesion right breast crease (inframammary fold). The specimen consists of a piece of skin measuring 0.7 x 0.3 x 0.2 cm. There is a raised andino-brown lesion on the surface measuring 2 mm in greatest dimension. The specimen is inked as follows: 12 o?clock - black and 6 o?clock - blue. The specimen is bisected and submitted entirely in one cassette. / PANKAJ:eder 01/01/21 TC:1 CPT: 57894 x5, 58610 x2
[2020-12-29] MEDS: Lactated Ringers 1,000 ML 100 ML IV (10:55)
[2020-12-29 11:12] VITALS: BP 143/63; PULSE 66; RESP 16; TEMP 35.9; O2SAT 96; BMI 28.3
--- NOTE | 2020-12-29 11:55 | HP.PCM_ITS ---
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 Initially, she had concerns about lesions on her left anteromedial leg, superior helical rim of left ear, and left abdominal which had increased in size with some crusting. She underwent shave biopsies on 10/24/20. Pathology showed the left abdominal wall was a seborrheic keratosis, mildly inflamed. The superior helical rim left ear showed consistent with benign keratosis, keratoacanthomatous type, and solar elastosis. 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 She also has concerns about lesions on her left lateral lower eyelid, left medial lower eyelid at medial canthus, and right breast crease that have increased in size over the last several months. She also complains of epiphora left eye. 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 She denies fever. She denies trauma. She denies recent infection. She denies visual problems. She denies bleeding. She presents at this time for further evaluation and treatment. 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 Hyperlipidemia Hypertension Keratoacanthoma of helix Kidney stones Lower back pain Lumbar radiculopathy Neoplasm of skin of eyelid Neoplasm of skin of female breast Ovarian cancer Squamous cell carcinoma of left lower leg PAST SURGICAL HISTORY hysterectomy back surgery ALLERGIES Penicillins MEDICATIONS atorvastatin estradiol gabapentin flaxseed oil loratadine tramadol FAMILY HISTORY Father - Myocardial infarction Mother - Myocardial infarction Brother - Heart disease Other - Diabetes, Family history of skin cancer, High cholesterol, Hypertension, Melanoma, Ovarian cancer SOCIAL HISTORY Smoking Status: Current every day smoker (/ ppd ) tobacco type: cigarettes Tobacco: How many years used: 44 quit status: has quit before alcohol intake: never substance use type: does not use REVIEW OF SYSTEMS General - Denies fever, fatigue, and weight loss. Eyes - Denies cataracts and glaucoma. Has epiphora left eye. ENT - Denies nasal congestion and sore throat. Endocrine - Denies excessive thirst and urination. Has diabetes mellitus. Skin - Has family history of skin cancer. Had lesions left anteromedial leg, superior helical rim left ear, and left abdominal wall that were shave biopsied on 10/24/20. 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 The superior helical rim left ear lesion was consistent with benign keratosis, keratoacanthomatous type, and solar elastosis. The left abdominal wall lesion was a seborrheic keratosis, mildly inflamed. Has enlarging lesions left lateral lower eyelid, left medial lower eyelid at medial canthus, and right breast crease. Musculoskeletal - Denies joint pain, joint stiffness, weakness of muscles and joints, and arthritis. Has back pain. Neuro - Denies headaches. Cardiovascular - Denies chest pain, fatigue, and shortness of breath with exertion. Psych - Denies anxiety and depression. Respiratory - Denies chronic cough and shortness of breath. Patient is a smoker. Gastrointestinal - Denies nausea, vomiting, diarrhea, and constipation. Hematologic - Denies abnormal bruising and bleeding. Genitourinary - Denies hematuria and urinary frequency. PHYSICAL EXAMINATION General - Alert and Oriented. HEENT - PERRL. EOMI. Throat is clear. On the left lateral lower eyelid is a lesion that measures 3 mm. It is pigmented. It is raised in configuration. No ulceration. Lesion is nontender. On the left medial lower eyelid is a lesion that measures 5 mm. It is located at the medial canthus. This is where the tear duct system is located which explains her epiphora. Lesion is nodular and is raise in configuration. Has irregular borders. No ulceration. Lesion is nontender. On the superior helical rim left ear is a 6 mm healing scar from recent shave biopsy that was consistent with benign keratosis, keratoacanthomatous type, and solar elastosis. No ulceration. Mild tenderness to palpation. There is an indentation in the cartilage at the biopsy site. No other suspicious lesions noted. Neck - Supple and nontender. No cervical adenopathy. No suspicious lesions noted. Breasts/chest wall - On the right breast crease (inframammary fold areas) is a lesion that measures 4 mm. It is pigmented. It is raised in configuration. Has irregular borders. No ulceration. Lesion is nontender. Lungs - Clear to auscultation. Heart - Regular rate and rhythm. Abdomen - Soft and nondistended. No suspicious lesions noted. Extremities - FROM. No axillary adenopathy. Radial pulses are palpable. No inguinal adenopathy. Dorsalis pedis pulses are palpable. 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 No ulceration. Scar is nontender. Neuro - CN II-XII grossly intact. Psych - Normal mood and affect. 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 2. 6 mm benign keratosis, keratoacanthomatous type, and solar elastosis superior helical rim left ear. 3. 5 mm lesion left medial lower eyelid at medial canthus. 4. 3 mm lesion left lateral lower eyelid. 5. 4 mm lesion right breast crease (inframammary fold). 6. Epiphora left eye. 7. Diabetes mellitus. 8. Family history of skin cancer. 9. Smoker. PLAN Recommend excision of the lesions (left anteromedial leg, superior helical rim left ear, left medial lower eyelid at medial canthus, left lateral lower eyelid, and right breast crease (inframammary fold) and send them to Pathology for analysis to rule out carcinoma. Reconstruction will be with a skin graft or a skin flap. The left lateral lower eyelid and right breast crease (inframammary fold) lesions will be excised and closed primarily. The superior helical rim left ear and left medial lower eyelid at medial canthus lesions will be sent to Pathology for analysis as a frozen section. I suspect the left medial lower eyelid at medial canthus lesion is a carcinoma and would need complex reconstruction including anticipated tear duct drainage procedure because of its proximity to the carcinoma. Also involvement of the medial canthus would necessitate complex reconstruction as well. This area would be best served at a tertiary center in concert with Moh's micrographic surgery to obtain negative margins while preserving tissue prior to complex reconstruction. For the superior helical rim left ear, I'm concerned that the keratoacanthomatous type in the previous pathology may show actual carcinoma as in the squamous cell carcinoma in the left anteromedial leg. Reconstruction will be with Antia chondrocutaneous advancement flaps. Patient has epiphora left eye which may indicate involvement of the tear duct system with the anticipated carcinoma in the left medial lower eyelid at medial canthus. Later on, a drainage procedure may be necessary (dacrocystorhinostomy). Surgery will be done on an outpatient basis under general anesthesia. Patient was informed of the risks and complications of the procedure including alternatives to surgery. These were discussed with the patient personally. Patient voices understanding and wishes to proceed. Some of the risks and complications were included in a form from the [employer]. Encouraged patient to stop smoking as it may have deleterious effects on wound healing. Patient has diabetes mellitus. For an elective procedure, the HgbA1c needs to be less than 8. Excising the cancer can be done regardless of the HgbA1c. However the reconstruction would be delayed until it is less than 8. She had a HgbA1c done on 12/26/20 and it was 5.9. We discussed the current risks associated with COVID-19. While it is understood that there is a community spread of COVID-19, the risk of yue COVID-19 while at [facility] ([facility]) is very low; however, the risk cannot be completely mitigated because of the community spread of the disease. We discussed in detail the risk of exposure to and/or potential harm posed by the COVID-19 virus with having a surgery/procedure at this time versus the risk of delaying the surgery/procedure. It is not possible to know either the risk of delaying the surgery or procedure or chance of getting an infection with perfect accuracy, but a joint decision was made to proceed at this time with the scheduled surgery/procedure as indicated on the consent form. Patient was notified that we will need to comply with any screening or testing [facility] wishes to perform or that surgery may be delayed for any positive results. Procedure Criteria Procedure Type:?Elective COVID Risk Discussion: The surgeon/proceduralist and patient have discussed in detail the risk of exposure to and/or potential harm posed by the COVID-19 virus with having a surgery/procedure at this time versus the risk of delaying the surgery/procedure.? It is not possible to know either the risk of delaying the surgery or procedure or chance of getting an infection with perfect accuracy, but a joint decision was made between the patient and the surgeon/proceduralist to proceed at this time with the scheduled surgery/procedure as indicated on the consent form.
[2020-12-29] MEDS: Silver Nitrate (BKC) 1 EACH (14:35)
[2020-12-29] MEDS: Mupirocin Ointment 22gm Tube 1 APPLIC (14:35)
[2020-12-29] MEDS: Lidocaine 1% /Epi 1:100 (20ml) 20 ML Vial (14:35)
[2020-12-29] MEDS: Erythromycin Base 1 OPTH.TUBE 1 APPLIC (14:35)
--- NOTE | 2020-12-29 14:35 | PCM.OPRPT ---
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 2. 6 mm benign keratosis, keratoacanthomatous type, and solar elastosis superior helical rim left ear. 3. 5 mm lesion left medial lower eyelid at medial canthus. 4. 3 mm lesion left lateral lower eyelid. 5. 4 mm lesion right breast crease (inframammary fold). 6. Epiphora left eye. 7. Diabetes mellitus. 8. Family history of skin cancer. 9. Smoker. 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 2. 6 mm actinic lesion superior helical rim left ear. 3. 5 mm benign follicular lesion left medial lower eyelid at medial canthus. 4. 3 mm lesion left lateral lower eyelid. 5. 4 mm lesion right breast crease (inframammary fold). 6. Epiphora left eye. 7. Diabetes mellitus. 8. Family history of skin cancer. 9. Smoker. Surgery/Procedure Performed:: 1. 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 2. Excision 6 mm actinic lesion superior helical rim left ear. 3. Intradermal excision 5 mm benign follicular lesion left medial lower eyelid at medial canthus. 4. Excision 3 mm lesion left lateral lower eyelid. 5. Excision 4 mm lesion right breast crease (inframammary fold) with 2 cm layered closure. 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 Initially, she had concerns about lesions on her left anteromedial leg, superior helical rim of left ear, and left abdominal which had increased in size with some crusting. She underwent shave biopsies on 10/24/20. Pathology showed the left abdominal wall was a seborrheic keratosis, mildly inflamed. The superior helical rim left ear showed consistent with benign keratosis, keratoacanthomatous type, and solar elastosis. 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 She also has concerns about lesions on her left lateral lower eyelid, left medial lower eyelid at medial canthus, and right breast crease that have increased in size over the last several months. She also complains of epiphora left eye. 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 She denies fever. She denies trauma. She denies recent infection. She denies visual problems. She denies bleeding. Patient was informed of the risks and complications of the procedure including alternatives to surgery. These were discussed with the patient personally. Patient voices understanding and wishes to proceed. Some of the risks and complications were included in a form from the [employer]. Encouraged patient to stop smoking as it may have deleterious effects on wound healing. Frozen section superior helical rim left ear - actinic damage, no carcinoma seen. Frozen section left medial lower eyelid at medial canthus - benign follicular tissue, no carcinoma seen. I used AmnioFix Placental Connective Tissue Graft, (2 x 6 cm). Catalog Number - [id number]. Lot Number - [id number]. Expiration - April 24, 2025. Size of skin graft left anteromedial leg - 1.9 x 1.9 cm. Surgeon: Tanner Rice health information specialist: Vinay Dalton Type of Anesthesia: General Specimen's removed: 1. Minimally invasive well differentiated squamous cell carcinoma, keratoacanthomatous type, left anteromedial leg to Pathology. 2. Keratosis, keratoacanthomatous type, superior helical rim left ear to Pathology as a frozen section. 3. Lesion left medial lower eyelid at medial canthus to Pathology as a frozen section. 4. Lesion left lateral lower eyelid to Pathology. 5. Lesion right breast crease (inframammary fold) to Pathology. Drains: None. Estimated Blood Loss (mL): 20. Description of Procedure: Patient was taken to OR in supine position and was placed under general anesthesia. The face and neck and right breast and left leg and left flank areas were prepped and draped in the usual fashion. SCD was placed on right leg for DVT prophylaxis. Perioperative antibiotics were given intravenously. Using xylocaine with epinephrine, the lesions were infiltrated. After waiting 5 minutes for the anesthetic to take effect, I excised the lesion superior helical rim left ear into the subcutaneous tissue as a full thickness excision with a 1 mm margin in all directions thus making it an 8 mm excision. A suture was placed at 12 oclock position for pathology orientation. The lesion was sent to Pathology as a frozen section for analysis to rule out carcinoma. Frozen section showed actinic damage and no carcinoma seen. For the left eye, I placed a corneal eye shield with lubricant prior to the biopsy. I then excised the lesion left medial lower eyelid in an intradermal fashion and sent to Pathology as a frozen section for analysis to rule out carcinoma. Frozen section showed a benign follicular lesion and no carcinoma seen. Hemostasis was obtained with gauze compression and silver nitrate chemical cauterization. The superior helical rim left ear wound was superficial and good contour noted. Will treat with antibiotic ointment until healed. If a helical rim contour deformity develops, then will reassess for scar excision and flap or graft reconstruction. While I was waiting for the frozen section, I excised the lesion left lateral lower eyelid as a oblique elliptical excision with a 1 mm margin in all directions thus making it a 5 mm excision. A suture was marked at 12 oclock position for pathology orientation. The lesion was sent to Pathology for analysis to rule out carcinoma. If carcinoma is present, then further excision would be done with skin grafting. Hemostasis was obtained with electrocautery. The wound was closed with 6-0 Prolene simple interrupted sutures. I then excised the lesion right breast crease as a horizontal elliptical excision with a 1 mm margin in all directions thus making it a 6 mm excision and a 2 cm layered closure. A suture was marked at 12 oclock position for pathology orientation. The lesion was sent to Pathology for analysis to rule out carcinoma. If carcinoma is present, then further excision would be done. For the wound closure, the deep dermis and subcutaneous tissue was approximated with 4-0 Monocryl interrupted sutures. The skin was approximated with 4-0 Prolene simple interrupted sutures. I then excised the squamous cell carcinoma left anteromedial leg in a circular fashion with a 6 mm margin in all directions thus making it a 1.9 cm excision. The defect to be skin grafted is 1.9 x 1.9 cm or 3.71 cm2. An ellipse of skin was excised from the left flank down into the subcutaneous tissue. The subcutaneous tissue was removed from the undersurface of the dermis including the deeper dermis thus fashioning a thick split thickness skin graft. The skin graft was placed on stretch and meshed with a 15 scalpel. The skin graft was placed in saline. The donor incision left flank was then closed in a layered fashion after hemostasis was obtained with electrocautery. The deep dermis and subcutaneous tissue was approximated with 3-0 Monocryl interrupted sutures. The skin was approximated with 4-0 V lock unidirectional barbed subcuticular suture and followed with Histoacryl skin tissue adhesive. The thick split thickness skin graft was placed on the squamous cell carcinoma wound left anteromedial leg. Prior to placement of the skin graft, I placed AmnioFix placental connective tissue graft into the base of the wound to help with the healing process. The skin graft was secured to the skin edge with 3-0 Chromic simple interrupted sutures. 3-0 Chromic sutures were also used for central quilting stabilization. Antibiotic ointment was applied to the skin graft followed by Xeroform gauze and cotton balls soaked in saline and secured to the skin edge with 4-0 Nylon tie over stent suture dressing. 4x4 gauze was applied over the stent dressing followed by Kerlix gauze and a compressions [place] wrap. For the left lateral lower eyelid incision and the right breast crease incision, antibiotic ointment was applied. An Op-site dressing was applied to the right breast crease incision. For the lesions superior helical rim left ear and left medial lower eyelid, hemostasis was obtained with silver nitrate chemical cauterization. This was followed by antibiotic ointment. I removed the corneal eye shield. The eye was irrigated with saline. Erythromycin ophthalmic ointment was applied to the left eye. Patient tolerated the procedure well and was sent to PACU in satisfactory condition. Patient will be sent home on antibiotics and pain medication and ophthalmic ointment to the left eye for a few days. She will keep her head elevated and her legs when sitting. Patient will followup in a week for a skin graft wound check and for discussion of the pathology report. Grafts/Implants Used: AmnioFix placental connective tissue graft Complications None. Admit VTE Documentation VTE Present on Admission: No VTE Mechan Device Prophylaxis: SCD's VTE Pharm Prophylaxis ordered?: No
[2020-12-29 14:40] VITALS: BP 112/59; BP 143/63; PULSE 83; RESP 16; TEMP 36.1; O2SAT 90
[2020-12-29 14:45] VITALS: BP 107/58; BP 143/63; PULSE 80; RESP 16; O2SAT 93
[2020-12-29 15:00] VITALS: BP 111/55; BP 143/63; PULSE 82; RESP 16; O2SAT 94
--- NOTE | 2020-12-29 15:04 | PCM.DC ---
Discharge Instructions Diet Discharge Diet: No restrictions Activity Discharge Activity: May Shower (in two days. wear plastic bag over left leg when showering.) and - (no heavy lifting) May shower in (days): 2 (wear plastic bag over left leg when showering.) May resume sexual activity in: 10-14 days Ice area for (Minutes): 5 (as needed for facial swelling.) Weight Bearing Status: Weight bearing as tolerated Lifting Restrictions: 10 lbs. Keep extremity elevated above heart level: Left Leg and - (elevate head.) Dressing / Incision Call your doctor if your incision/area has: Continuous Slow Oozing, Sudden Increased Bleeding, Increased Pain/ Swelling, Increased Redness, Foul Smelling Discharge and Swelling at the incision site Call your doctor if you observe: Fever of 101 or Higher, Coldness, Increased Pain, Shortness of breath, Chest pain, Calf discomfort and Uncontrolled pain Suture Line Care: - (apply antibiotic ointment to wounds left ear, left lower eyelid, and suture line right breast crease daily.) Change Dressing in: 2 days (the right breast crease dressing.) Remove Dressing in: 4 days (skin graft dressing left leg.) Cleanse incision/area with: - (may get incisions wet in the shower in two days. wear plastic bag over left leg when showering.) Follow Up Care Please Follow Up With: Tanner Rice MD When: wednesday December 23, 2020. call [phone] for appt. Test Results: Test results from this visit will be discussed in further detail at your follow-up appointment, if applicable. Discharge Plan Admission Primary Reason for Your Visit: squamous cell carcinoma left leg. Attending Provider: Tanner Rice Primary Care Provider: Renan Rubi Chi Discharge Orders/Prescriptions Prescriptions: New clindamycin HCl [Cleocin HCl] 300 mg capsule 300 mg PO TID Qty: 15 RF: 0 oxycodone-acetaminophen [Percocet] 5-325 mg tablet 1 tab PO Q6H PRN (Reason: pain (scale score 7-10)) 5 Days Qty: 20 RF: 0 L.acidoph,saliva-B.bif-S.therm [Acidophilus Probiotic Blend] 175 mg capsule 1 cap PO DAILY Qty: 10 RF: 0 neomycin-polymyxin B-dexameth [Maxitrol] 3.5 mg/g-10,000 unit/g-0.1 % ointment 1 applic LEFT EYE TID Qty: 3.5 RF: 0 Continued flaxseed oil 1,000 mg capsule 1,000 mg PO DAILY RF: 0 loratadine [Claritin] 10 mg tablet 10 mg PO DAILY RF: 0 tramadol 50 mg tablet 50 mg PO Q6H PRN (Reason: Pain) RF: 0 atorvastatin 40 MG tablet 20 mg PO DAILY RF: 0 gabapentin 300 MG capsule 300 mg PO DAILY RF: 0 estradiol 2 MG tablet 2 mg PO DAILY RF: 0 ascorbic acid (vitamin C) [Vitamin C] 500 mg Tablet 500 mg PO QODAY RF: 0 cholecalciferol (vitamin D3) [Vitamin D3] 50 mcg (2,000 unit) Tablet 50 mcg PO DAILY RF: 0 Referrals / Follow Up: Renan Rubi Chi, MD [Primary Care Provider] - Disposition Disposition (needs filled in before D/C Order can be placed): Home, Self Care
[2020-12-29 15:05] VITALS: BP 106/47; BP 143/63; PULSE 83; RESP 16; TEMP 36.1; O2SAT 94
[2020-12-29 15:49] VITALS: BP 143/63
== END 2020-12-29 16:04 | disposition home or self-care (01) ==
LOC: SDC 10:40 → AC 10:41
PROVIDERS: Anesthesiology; PCP Family Medicine Geriatric Medicine; Referring Provider Surgery; Visit Provider Surgery
PROC: (CPT 11400; principal; 2020-12-29 12:15)
DX: D23.122 Other benign neoplasm of skin of left lower eyelid, including canthus (principal); L82.1 Other seborrheic keratosis; L57.0 Actinic keratosis; L90.5 Scar conditions and fibrosis of skin; H04.222 Epiphora due to insufficient drainage, left side; E11.9 Type 2 diabetes mellitus without complications; E78.5 Hyperlipidemia, unspecified; I10 Essential (primary) hypertension; F17.210 Nicotine dependence, cigarettes, uncomplicated; Z79.899 Other long term (current) drug therapy
CPT/HCPCS: 11400; 11401; 11442; 12031; 15100; 36415; 80048; 83036; 85027; 87426; 88305; 88331; 93005; C9803; J7120; J2405

== ENCOUNTER → 2021-02-02 | Outpatient (CLI) | payer MEDICARE, SELFPAY | END | disposition home or self-care (01) | LOC: LABSPEC 10:50 | PROVIDERS: PCP Family Medicine Geriatric Medicine; Referring Provider Nurse Practitioner Family; Visit Provider Nurse Practitioner Family | DX: C44.729 Squamous cell carcinoma of skin of left lower limb, including hip (principal); L57.0 Actinic keratosis; F17.200 Nicotine dependence, unspecified, uncomplicated; E11.9 Type 2 diabetes mellitus without complications; T86.821 Skin graft (allograft) (autograft) failure | CPT/HCPCS: 87070; 87075; 87205 ==

== ENCOUNTER 2021-04-20 08:56 | Outpatient (CLI) | payer MEDICARE, OTHER, SELFPAY ==
[2021-04-20 12:25] LABS: Absolute Lymphocyte Count 3.54 X10^3/uL (0.83-4.51); Absolute Neutrophil Count 5.5 X10^3/uL (2.0-7.7); Basophil# 0.06 X10^3/uL; Basophil% 0.6 % (0-1); Eosinophil# 0.13 X10^3/uL; Eosinophils% 1.3 % (0-5); Hematocrit 48.1 % (37-47); Hemoglobin 15.9 g/dL (12.0-15.0); Lymphocyte # 3.54 X10^3/ul (0.83-4.51); Lymphocyte % 35.3 % (19-41); Mean Corp Hgb Conc 33.1 g/dL (32-36); Mean Corpuscular Hgb 30.6 pg (27.0-32.0); Mean Corpuscular Volume 92.5 fL (81-99); Mean Platelet Vol. 10.5 fl (6.2-12.0); Monocyte# 0.75 X10^3/uL; Monocyte% 7.5 % (0-10); NRBC Flagged by Analyzer 0 % (0-5); Neutrophil # 5.53 X10^3/uL (2.7-7.7); Neutrophil % 55.1 % (47-70); Platelet Count 267 K/mm3 (150-450); RBC Distribution Width CV 12.7 % (11.6-14.6); RBC Distribution Width SD 43.5 fl (35.1-43.9)
[2021-04-20 12:48] LABS: Vitamin D,25 Hydroxy 52.9 ng/mL
[2021-04-20 12:55] LABS: ALB/GLOB Ratio 0.9 RATIO (0.9-2.4); AST(SGOT) 18 U/L (15-37); Alanine Aminotransfer ALT/SGPT 23 U/L (13-56); Albumin, Serum 3.6 g/dL (3.2-5.0); Alkaline Phosphatase 74 U/L (45-117); Anion Gap 5 (5-15); BUN 11 mg/dL (7-18); BUN/Creat Ratio 12.5 RATIO (10-20); Calcium,Total 8.7 mg/dL (8.5-10.1); Chloride 106 mmol/L (98-107); Creatinine, Serum 0.88 mg/dL (0.55-1.02); EST Glomerular Filtration Rate 69 mL/min (>60); Est Glom Filt Rate - Afr Amer 83 mL/min (>60); Globulin 4.1 g/dL (2.2-4.2); Glucose 89 mg/dL (74-106); Potassium 4.1 mmol/L (3.5-5.1); Protein, Total 7.7 g/dL (6.4-8.2); Sodium Level 139 mmol/L (136-145); Thyroid Stim Hormone (TSH) 2.51 uIU/mL (0.358-3.74)
== END 2021-04-20 23:59 | disposition short-term general hospital (02) ==
LOC: LAB.FUTURE 08:57 → POLAB3 04-24 07:56
PROVIDERS: PCP Family Medicine Geriatric Medicine; Visit Provider Family Medicine Geriatric Medicine
DX: E11.9 Type 2 diabetes mellitus without complications (principal); E55.9 Vitamin D deficiency, unspecified; I10 Essential (primary) hypertension
CPT/HCPCS: 36415; 80053; 82306; 84443; 85025

== ENCOUNTER → 2021-10-18 | Outpatient (CLI) | payer MEDICARE, OTHER, SELFPAY ==
[2021-10-18 12:10] LABS: Absolute Lymphocyte Count 3.59 X10^3/uL (0.83-4.51); Absolute Neutrophil Count 5.1 X10^3/uL (2.0-7.7); Basophil# 0.05 X10^3/uL; Basophil% 0.5 % (0-1); Eosinophil# 0.23 X10^3/uL; Eosinophils% 2.3 % (0-5); Hematocrit 50.6 % (37-47); Lymphocyte # 3.59 X10^3/ul (0.83-4.51); Lymphocyte % 36.7 % (19-41); Mean Corp Hgb Conc 33.6 g/dL (32-36); Mean Corpuscular Hgb 30.9 pg (27.0-32.0); Mean Corpuscular Volume 91.8 fL (81-99); Mean Platelet Vol. 10.7 fl (6.2-12.0); Monocyte# 0.83 X10^3/uL; Monocyte% 8.5 % (0-10); NRBC Flagged by Analyzer 0 % (0-5); Neutrophil # 5.07 X10^3/uL (2.7-7.7); Neutrophil % 51.8 % (47-70); Platelet Count 261 K/mm3 (150-450); RBC Distribution Width CV 12.9 % (11.6-14.6); RBC Distribution Width SD 43.8 fl (35.1-43.9); Red Blood Count 5.51 M/mm3 (4.2-5.4); White Blood Count 9.8 K/mm3 (4.4-11.0)
[2021-10-18 12:30] LABS: Vitamin D,25 Hydroxy 65.2 ng/mL
[2021-10-18 12:34] LABS: ALB/GLOB Ratio 0.9 RATIO (0.9-2.4); AST(SGOT) 39 U/L (15-37); Alanine Aminotransfer ALT/SGPT 45 U/L (13-56); Albumin, Serum 3.8 g/dL (3.2-5.0); Alkaline Phosphatase 76 U/L (45-117); Anion Gap 7 (5-15); BUN 13 mg/dL (7-18); BUN/Creat Ratio 14.5 RATIO (10-20); Calcium,Total 9.4 mg/dL (8.5-10.1); Chloride 104 mmol/L (98-107); EST Glomerular Filtration Rate 67 mL/min (>60); Est Glom Filt Rate - Afr Amer 81 mL/min (>60); Globulin 4.2 g/dL (2.2-4.2); Glucose 102 mg/dL (74-106); Potassium 4.2 mmol/L (3.5-5.1); Sodium Level 138 mmol/L (136-145); Thyroid Stim Hormone (TSH) 2.47 uIU/mL (0.358-3.74)
== END | disposition home or self-care (01) ==
LOC: POLAB3 08:59
PROVIDERS: PCP Family Medicine Geriatric Medicine; Visit Provider Family Medicine Geriatric Medicine
DX: I10 Essential (primary) hypertension (principal); E11.9 Type 2 diabetes mellitus without complications; E55.9 Vitamin D deficiency, unspecified
CPT/HCPCS: 36415; 80053; 82306; 84443; 85025

== ENCOUNTER → 2021-12-11 | Outpatient (CLI) | payer MEDICARE, OTHER, SELFPAY ==
--- NOTE | 2021-12-11 13:14 | CT_ITS ---
STUDY: LOW DOSE CT LUNG CANCER SCREENING REASON FOR EXAM: Female, 66 years old. HX OF TOBACCO USE RADIATION DOSAGE (If Supplied By Facility): CTDIvol = ( 2.39 ) mGy, DLP = ( 72.36 ) mGycm TECHNIQUE: No contrast was administered. Low dose technique was utilized (average mAS-38 and kVp 120). 1.25 mm axial source images with a slice interval of 1.25-mm were reconstructed in lung windows. 2.5 mm axial source images with a slice interval of 2.5-mm were reconstructed in lung windows. 5.0 mm axial source images with a slice interval of 5.0-mm were reconstructed in soft tissue windows. COMPARISON: 11/14/2020. NODULES: 1.3 cm densely calcified nodule along the undersurface of the posterior lateral right minor fissure seen on axial series 2 image 100 demonstrates no significant change in comparison to the prior study. 0.4 cm nodule visualized in the anterolateral aspect of the right upper lobe seen on axial series 2 image 94 demonstrates slight decrease in size in comparison to the prior study. 0.5 cm pleural-based nodularity along the undersurface of the right minor fissure anteriorly seen on axial series 2 image 117 and sagittal series 602 image 105 demonstrates decrease in cortical size in comparison to the prior study where it had measured 0.7 cm on sagittal series 601 image 89 and axial series 2 image 128.. Emphysema: Bullous emphysematous changes visualized most prominent in the medial aspect of the upper lobes bilaterally. Endobronchial lesion: No evidence of endobronchial lesions is seen. Aorta: Subtle scattered atherosclerotic calcifications visualized in the abdominal aorta, no evidence of aneurysmal dilatation or arterial dissection is seen. CORONARY ARTERIES: No significant Coronary artery calcification Heart: Unremarkable sized evidence of cardiomegaly. No evidence of pericardial effusion is seen. Pulmonary artery: Unremarkable pulmonary vessels. Mediastinal nodes: No evidence of hilar or mediastinal lymphadenopathy. Other chest and abdominal findings: Mild degenerative bone changes, chest wall is unremarkable. CT/Low Dose CT Lung Screening IMPRESSION: Right middle lobe calcification demonstrates no change in comparison to the prior study. Pleural-based parenchymal lung nodules demonstrate decrease in size in comparison to the prior study. Lung-RADS category 2 - Continue annual screening with LDCT in 12 months. IMPORTANT NOTES FOR USE: ACR Lung-RADS Version 1.1 Assessment Categories Release Date: 2018 Category: Coded 0-4 bases on nodule(s) with highest degree of suspicion. Negative screen is defined as categories 1 and 2; a positive screen is defined as categories 3 and 4. Category 3 and 4A nodules that are unchanged on interval CT should be coded as category 2, and individuals returned to screening in 12 months. Category 4X: Category 3 or 4 nodules with additional imaging findings that increase the suspicion of lung cancer, such as spiculation, GGN that doubles in size in 1 year, enlarged lymph notes, etc. Category Modifiers: S (significant finding unrelated to lung cancer) Electronically Signed: Desmond Huggins MD at 13:54 EDT ,
== END | disposition home or self-care (01) ==
LOC: CT 12:57
PROVIDERS: PCP Family Medicine Geriatric Medicine; Referring Provider Nurse Practitioner Family; Visit Provider Nurse Practitioner Family
DX: Z87.891 Personal history of nicotine dependence (principal)
CPT/HCPCS: 71271

== ENCOUNTER → 2021-12-19 | Outpatient (CLI) | payer MEDICARE, OTHER, SELFPAY ==
[2021-12-19 15:41] LABS: CRP 5.64 mg/L (0.0-3.0)
[2021-12-21 15:07] LABS: Endomysial Antibody IgA Negative (Negative)
[2021-12-23 09:05] LABS: Immunoglobulin A 200 mg/dL (87-352); t-Transglutaminase IgA <2 U/mL (0-3)
== END | disposition home or self-care (01) ==
LOC: MTLAB 11:49
PROVIDERS: PCP Family Medicine Geriatric Medicine; Referring Provider Internal Medicine Gastroenterology; Visit Provider Internal Medicine Gastroenterology
DX: R19.7 Diarrhea, unspecified (principal)
CPT/HCPCS: 36415; 82784; 83516; 86140; 86255

== ENCOUNTER → 2022-01-30 | Outpatient (CLI) | payer MEDICARE, OTHER, SELFPAY ==
[2022-01-30 19:40] LABS: M R Staph aureus DNA By PCR Negative (Negative); Probe Check PASS; Specimen Processing Control PASS; Staph aureus DNA By PCR NEGATIVE (Negative)
== END | disposition home or self-care (01) ==
LOC: POLAB3 10:28 → LABSPEC 10:29
PROVIDERS: PCP Family Medicine Geriatric Medicine; Visit Provider Family Medicine Geriatric Medicine
DX: N61.0 Mastitis without abscess (principal)
CPT/HCPCS: 87070; 87075; 87077; 87186; 87205; 87640

== ENCOUNTER → 2022-04-18 | Outpatient (CLI) | payer MEDICARE, OTHER, SELFPAY ==
[2022-04-18 11:21] LABS: Absolute Neutrophil Count 5.1 X10^3/uL (2.0-7.7); Basophil# 0.05 X10^3/uL; Basophil% 0.5 % (0-1); Eosinophil# 0.16 X10^3/uL; Eosinophils% 1.6 % (0-5); Hematocrit 48.5 % (37-47); Hemoglobin 15.8 g/dL (12.0-15.0); Lymphocyte % 38.9 % (19-41); Mean Corp Hgb Conc 32.6 g/dL (32-36); Mean Corpuscular Hgb 29.5 pg (27.0-32.0); Mean Corpuscular Volume 90.7 fL (81-99); Mean Platelet Vol. 10.9 fl (6.2-12.0); Monocyte# 0.65 X10^3/uL; Monocyte% 6.7 % (0-10); NRBC Flagged by Analyzer 0 % (0-5); Neutrophil # 5.05 X10^3/uL (2.7-7.7); Neutrophil % 51.8 % (47-70); Platelet Count 264 K/mm3 (150-450); RBC Distribution Width CV 12.5 % (11.6-14.6); RBC Distribution Width SD 41.1 fl (35.1-43.9); Red Blood Count 5.35 M/mm3 (4.2-5.4); White Blood Count 9.8 K/mm3 (4.4-11.0)
[2022-04-18 11:46] LABS: ALB/GLOB Ratio 0.9 RATIO (0.9-2.4); AST(SGOT) 38 U/L (15-37); Alanine Aminotransfer ALT/SGPT 43 U/L (13-56); Albumin, Serum 3.6 g/dL (3.2-5.0); Alkaline Phosphatase 85 U/L (45-117); Anion Gap 8 (5-15); BUN 10 mg/dL (7-18); BUN/Creat Ratio 11.5 RATIO (10-20); Calcium,Total 9.2 mg/dL (8.5-10.1); Chloride 105 mmol/L (98-107); Creatinine, Serum 0.87 mg/dL (0.55-1.02); EST Glomerular Filtration Rate 69 mL/min (>60); Est Glom Filt Rate - Afr Amer 84 mL/min (>60); Globulin 4.2 g/dL (2.2-4.2); Glucose 163 mg/dL (74-106); Protein, Total 7.8 g/dL (6.4-8.2); Sodium Level 140 mmol/L (136-145); Thyroid Stim Hormone (TSH) 1.22 uIU/mL (0.358-3.74)
[2022-04-18 13:03] LABS: Vitamin D,25 Hydroxy 54.6 ng/mL
== END | disposition home or self-care (01) ==
LOC: POLAB3 08:58
PROVIDERS: PCP Family Medicine Geriatric Medicine; Visit Provider Family Medicine Geriatric Medicine
DX: I10 Essential (primary) hypertension (principal); E11.65 Type 2 diabetes mellitus with hyperglycemia; E55.9 Vitamin D deficiency, unspecified
CPT/HCPCS: 36415; 80053; 82306; 84443; 85025

== ENCOUNTER → 2022-07-18 | Outpatient (CLI) | payer MEDICARE, OTHER, SELFPAY ==
[2022-07-18 13:14] LABS: Absolute Lymphocyte Count 4.74 X10^3/uL (0.83-4.51); Basophil# 0.06 X10^3/uL; Basophil% 0.6 % (0-1); Eosinophil# 0.26 X10^3/uL; Eosinophils% 2.4 % (0-5); Hematocrit 46.4 % (37-47); Hemoglobin 14.9 g/dL (12.0-15.0); Lymphocyte # 4.74 X10^3/ul (0.83-4.51); Lymphocyte % 43.7 % (19-41); Mean Corp Hgb Conc 32.1 g/dL (32-36); Mean Corpuscular Hgb 29.7 pg (27.0-32.0); Mean Corpuscular Volume 92.4 fL (81-99); Mean Platelet Vol. 10.8 fl (6.2-12.0); Monocyte# 0.75 X10^3/uL; Monocyte% 6.9 % (0-10); NRBC Flagged by Analyzer 0 % (0-5); Neutrophil # 4.99 X10^3/uL (2.7-7.7); Neutrophil % 45.9 % (47-70); Platelet Count 271 K/mm3 (150-450); RBC Distribution Width CV 13.1 % (11.6-14.6); RBC Distribution Width SD 44.6 fl (35.1-43.9); Red Blood Count 5.02 M/mm3 (4.2-5.4); White Blood Count 10.9 K/mm3 (4.4-11.0)
[2022-07-18 13:34] LABS: Vitamin D,25 Hydroxy 58.8 ng/mL
[2022-07-18 13:40] LABS: ALB/GLOB Ratio 0.9 RATIO (0.9-2.4); AST(SGOT) 28 U/L (15-37); Alanine Aminotransfer ALT/SGPT 40 U/L (13-56); Albumin, Serum 3.6 g/dL (3.2-5.0); Alkaline Phosphatase 81 U/L (45-117); Anion Gap 3 (5-15); BUN 12 mg/dL (7-18); Chloride 108 mmol/L (98-107); EST Glomerular Filtration Rate 76 mL/min (>60); Est Glom Filt Rate - Afr Amer 92 mL/min (>60); Globulin 4.2 g/dL (2.2-4.2); Glucose 103 mg/dL (74-106); Potassium 3.8 mmol/L (3.5-5.1); Protein, Total 7.8 g/dL (6.4-8.2); Sodium Level 138 mmol/L (136-145); Thyroid Stim Hormone (TSH) 1.95 uIU/mL (0.358-3.74)
== END | disposition home or self-care (01) ==
LOC: POLAB3 09:25
PROVIDERS: PCP Family Medicine Geriatric Medicine; Visit Provider Family Medicine Geriatric Medicine
DX: I10 Essential (primary) hypertension (principal); E11.65 Type 2 diabetes mellitus with hyperglycemia; E55.9 Vitamin D deficiency, unspecified
CPT/HCPCS: 36415; 80053; 82306; 84443; 85025

== ENCOUNTER → 2022-09-17 | Outpatient (CLI) | payer MEDICARE, OTHER, SELFPAY ==
[2022-09-17 19:55] LABS: M R Staph aureus DNA By PCR Negative (Negative); Probe Check PASS; Specimen Processing Control PASS; Staph aureus DNA By PCR NEGATIVE (Negative)
== END | disposition home or self-care (01) ==
PROVIDERS: PCP Family Medicine Geriatric Medicine; Visit Provider Family Medicine Geriatric Medicine
DX: N61.1 Abscess of the breast and nipple (principal)
CPT/HCPCS: 87070; 87077; 87186; 87205; 87640

== ENCOUNTER → 2022-09-25 | Outpatient (CLI) | payer MEDICARE, OTHER, SELFPAY ==
--- NOTE | 2022-09-25 15:00 | BRBX_PTH ---
PATIENT: ELLIS MORRIS LOC: [facility] U#:[id number] AGE/SX: 67/F ROOM: RE09/25/[address]: Dr. Wale Mobley MD : [id number] BED: DIS: 09/25/2022 SPEC #: [id number] RECD: 09/25/22 16:11 STATUS: SKYE GRIMES #: [id number] BEBO: 09/25/22 15:[address]: Wale Mobley DEPT: SURGICAL PATHOLOGY RECD BY: Rakesh Villanueva ENTERED: 09/26/22 08:38 SP TYPE: BREAST BX OT DR: Dr. Renan Rubi MD Tissues: Right breast, NOS Procedures: Surgery Specimen Level IV HEADER OPERATION: Wound debridement right breast PRE-OP DIAGNOSIS: Right breast nonhealing wound TISSUE SUBMITTED: Right breast tissue MICROSCOPIC DIAGNOSIS Skin and soft tissue of right breast, biopsy: Benign epithelial cyst with rupture and associated acute and chronic inflammation and granulation. Focal benign histiocytic reaction. No evidence of malignancy. AM:eder 09/27/2022 MICROSCOPIC DESCRIPTION Slides are reviewed. GROSS DESCRIPTION Received in fixative is one container labeled with the patient's name and designated right breast. The specimen consists of an irregular fragment of andino excised skin measuring 1.5 x 0.7 cm and excised to a depth of 1.5 cm. The specimen is inked, trisected and totally submitted in one cassette. / AM:eder 09/26/2022 TC:2 CPT: 22561
== END | disposition home or self-care (01) ==
LOC: LABSPEC 16:17
PROVIDERS: PCP Family Medicine Geriatric Medicine; Referring Provider Surgery; Visit Provider Surgery
DX: L72.0 Epidermal cyst (principal)
CPT/HCPCS: 88305

== ENCOUNTER → 2022-10-22 | Outpatient (CLI) | payer MEDICARE, OTHER, SELFPAY ==
[2022-10-22 13:02] LABS: Absolute Lymphocyte Count 4.71 X10^3/uL (0.83-4.51); Absolute Neutrophil Count 5.4 X10^3/uL (2.0-7.7); Basophil# 0.05 X10^3/uL; Basophil% 0.4 % (0-1); Eosinophil# 0.21 X10^3/uL; Eosinophils% 1.9 % (0-5); Hematocrit 45.8 % (37-47); Hemoglobin 15.1 g/dL (12.0-15.0); Lymphocyte # 4.71 X10^3/ul (0.83-4.51); Lymphocyte % 41.7 % (19-41); Mean Corpuscular Hgb 30.4 pg (27.0-32.0); Mean Corpuscular Volume 92.3 fL (81-99); Mean Platelet Vol. 10.3 fl (6.2-12.0); Monocyte# 0.93 X10^3/uL; Monocyte% 8.2 % (0-10); NRBC Flagged by Analyzer 0 % (0-5); Neutrophil # 5.37 X10^3/uL (2.7-7.7); Neutrophil % 47.5 % (47-70); Platelet Count 299 K/mm3 (150-450); RBC Distribution Width CV 13.5 % (11.6-14.6); RBC Distribution Width SD 45.7 fl (35.1-43.9); Red Blood Count 4.96 M/mm3 (4.2-5.4); White Blood Count 11.3 K/mm3 (4.4-11.0)
[2022-10-22 13:21] LABS: Vitamin D,25 Hydroxy 56.6 ng/mL
[2022-10-22 13:23] LABS: ALB/GLOB Ratio 0.9 RATIO (0.9-2.4); AST(SGOT) 27 U/L (15-37); Alanine Aminotransfer ALT/SGPT 36 U/L (13-56); Albumin, Serum 3.7 g/dL (3.2-5.0); Alkaline Phosphatase 87 U/L (45-117); Anion Gap 6 (5-15); BUN 11 mg/dL (7-18); BUN/Creat Ratio 11.1 RATIO (10-20); Calcium,Total 9.3 mg/dL (8.5-10.1); Chloride 105 mmol/L (98-107); Creatinine, Serum 0.99 mg/dL (0.55-1.02); EST Glomerular Filtration Rate 60 mL/min (>60); Est Glom Filt Rate - Afr Amer 72 mL/min (>60); Globulin 4.3 g/dL (2.2-4.2); Glucose 68 mg/dL (74-106); Sodium Level 138 mmol/L (136-145); Thyroid Stim Hormone (TSH) 1.55 uIU/mL (0.358-3.74)
== END | disposition home or self-care (01) ==
PROVIDERS: PCP Family Medicine Geriatric Medicine; Visit Provider Family Medicine Geriatric Medicine
DX: E11.65 Type 2 diabetes mellitus with hyperglycemia (principal); E55.9 Vitamin D deficiency, unspecified
CPT/HCPCS: 36415; 80053; 82306; 84443; 85025

== ENCOUNTER → 2023-03-31 | Outpatient (CLI) | payer MEDICARE, OTHER, SELFPAY ==
[2023-03-31 12:47] LABS: Absolute Lymphocyte Count 4.58 X10^3/uL (0.83-4.51); Absolute Neutrophil Count 5.1 X10^3/uL (2.0-7.7); Basophil# 0.06 X10^3/uL; Basophil% 0.6 % (0-1); Eosinophil# 0.13 X10^3/uL; Eosinophils% 1.2 % (0-5); Hematocrit 46.8 % (37-47); Hemoglobin 15.1 g/dL (12.0-15.0); Lymphocyte # 4.58 X10^3/ul (0.83-4.51); Lymphocyte % 42.9 % (19-41); Mean Corp Hgb Conc 32.3 g/dL (32-36); Mean Corpuscular Hgb 29.8 pg (27.0-32.0); Mean Corpuscular Volume 92.3 fL (81-99); Mean Platelet Vol. 10.2 fl (6.2-12.0); Monocyte# 0.75 X10^3/uL; NRBC Flagged by Analyzer 0 % (0-5); Neutrophil # 5.11 X10^3/uL (2.7-7.7); Neutrophil % 47.9 % (47-70); Platelet Count 287 K/mm3 (150-450); RBC Distribution Width CV 13.2 % (11.6-14.6); RBC Distribution Width SD 44.9 fl (35.1-43.9); Red Blood Count 5.07 M/mm3 (4.2-5.4); White Blood Count 10.7 K/mm3 (4.4-11.0)
[2023-03-31 13:10] LABS: Vitamin D,25 Hydroxy 56.2 ng/mL
[2023-03-31 13:16] LABS: ALB/GLOB Ratio 0.9 RATIO (0.9-2.4); AST(SGOT) 19 U/L (15-37); Alanine Aminotransfer ALT/SGPT 24 U/L (13-56); Albumin, Serum 3.8 g/dL (3.2-5.0); Alkaline Phosphatase 77 U/L (45-117); Anion Gap 5 (5-15); BUN 18 mg/dL (7-18); BUN/Creat Ratio 18.6 RATIO (10-20); Chloride 108 mmol/L (98-107); Creatinine, Serum 0.97 mg/dL (0.55-1.02); EST Glomerular Filtration Rate 61 mL/min (>60); Est Glom Filt Rate - Afr Amer 74 mL/min (>60); Globulin 4.1 g/dL (2.2-4.2); Glucose 79 mg/dL (74-106); Potassium 4.2 mmol/L (3.5-5.1); Protein, Total 7.9 g/dL (6.4-8.2); Sodium Level 141 mmol/L (136-145); Thyroid Stim Hormone (TSH) 1.35 uIU/mL (0.358-3.74)
== END | disposition home or self-care (01) ==
LOC: POLAB3 11:29
PROVIDERS: PCP Family Medicine Geriatric Medicine; Visit Provider Family Medicine Geriatric Medicine
DX: E11.65 Type 2 diabetes mellitus with hyperglycemia (principal); E55.9 Vitamin D deficiency, unspecified; I10 Essential (primary) hypertension
CPT/HCPCS: 36415; 80053; 82306; 84443; 85025

== ENCOUNTER → 2023-10-27 | Outpatient (CLI) | payer MEDICARE, OTHER, SELFPAY ==
[2023-10-27 12:19] LABS: Absolute Lymphocyte Count 4.67 X10^3/uL (0.83-4.51); Absolute Neutrophil Count 5.5 X10^3/uL (2.0-7.7); Basophil# 0.06 X10^3/uL; Basophil% 0.5 % (0-1); Eosinophil# 0.17 X10^3/uL; Eosinophils% 1.5 % (0-5); Hematocrit 45.4 % (37-47); Hemoglobin 15.1 g/dL (12.0-15.0); Lymphocyte # 4.67 X10^3/ul (0.83-4.51); Lymphocyte % 41.2 % (19-41); Mean Corp Hgb Conc 33.3 g/dL (32-36); Mean Corpuscular Hgb 30.3 pg (27.0-32.0); Mean Corpuscular Volume 91.2 fL (81-99); Monocyte# 0.92 X10^3/uL; Monocyte% 8.1 % (0-10); NRBC Flagged by Analyzer 0 % (0-5); Neutrophil # 5.47 X10^3/uL (2.7-7.7); Neutrophil % 48.3 % (47-70); Platelet Count 270 K/mm3 (150-450); RBC Distribution Width CV 13.2 % (11.6-14.6); RBC Distribution Width SD 44.8 fl (35.1-43.9); Red Blood Count 4.98 M/mm3 (4.2-5.4); White Blood Count 11.3 K/mm3 (4.4-11.0)
[2023-10-27 12:57] LABS: ALB/GLOB Ratio 0.8 RATIO (0.9-2.4); AST(SGOT) 18 U/L (15-37); Alanine Aminotransfer ALT/SGPT 25 U/L (13-56); Albumin, Serum 3.5 g/dL (3.2-5.0); Alkaline Phosphatase 81 U/L (45-117); Anion Gap 9 (5-15); BUN 12 mg/dL (7-18); BUN/Creat Ratio 12.5 RATIO (10-20); Chloride 109 mmol/L (98-107); Creatinine, Serum 0.96 mg/dL (0.55-1.02); EST Glomerular Filtration Rate 62 mL/min (>60); Est Glom Filt Rate - Afr Amer 74 mL/min (>60); Globulin 4.3 g/dL (2.2-4.2); Glucose 73 mg/dL (74-106); Potassium 4.4 mmol/L (3.5-5.1); Protein, Total 7.8 g/dL (6.4-8.2); Sodium Level 142 mmol/L (136-145); Thyroid Stim Hormone (TSH) 1.81 uIU/mL (0.358-3.74)
== END | disposition home or self-care (01) ==
PROVIDERS: PCP Family Medicine Geriatric Medicine; Visit Provider Family Medicine Geriatric Medicine
DX: E11.65 Type 2 diabetes mellitus with hyperglycemia (principal); I10 Essential (primary) hypertension; E55.9 Vitamin D deficiency, unspecified
CPT/HCPCS: 36415; 80053; 82306; 84443; 85025

== ENCOUNTER → 2024-04-26 | Outpatient (CLI) | payer MEDICARE, OTHER, SELFPAY ==
[2024-04-26 13:03] LABS: Absolute Lymphocyte Count 3.87 X10^3/uL (0.83-4.51); Basophil# 0.06 X10^3/uL; Basophil% 0.6 % (0-1); Eosinophil# 0.13 X10^3/uL; Eosinophils% 1.2 % (0-5); Hematocrit 48.2 % (37-47); Hemoglobin 15.6 g/dL (12.0-15.0); Lymphocyte # 3.87 X10^3/ul (0.83-4.51); Lymphocyte % 35.8 % (19-41); Mean Corp Hgb Conc 32.4 g/dL (32-36); Mean Corpuscular Hgb 29.5 pg (27.0-32.0); Mean Corpuscular Volume 91.3 fL (81-99); Mean Platelet Vol. 10.3 fl (6.2-12.0); Monocyte% 6.5 % (0-10); NRBC Flagged by Analyzer 0 % (0-5); Neutrophil # 6.02 X10^3/uL (2.7-7.7); Neutrophil % 55.5 % (47-70); Platelet Count 280 K/mm3 (150-450); RBC Distribution Width CV 13.4 % (11.6-14.6); RBC Distribution Width SD 45.1 fl (35.1-43.9); Red Blood Count 5.28 M/mm3 (4.2-5.4); White Blood Count 10.8 K/mm3 (4.4-11.0)
[2024-04-26 13:50] LABS: ALB/GLOB Ratio 0.9 RATIO (0.9-2.4); AST(SGOT) 16 U/L (15-37); Alanine Aminotransfer ALT/SGPT 20 U/L (13-56); Albumin, Serum 3.8 g/dL (3.2-5.0); Alkaline Phosphatase 73 U/L (45-117); Anion Gap 5 (5-15); BUN 14 mg/dL (7-18); BUN/Creat Ratio 15.6 RATIO (10-20); Calcium,Total 9.4 mg/dL (8.5-10.1); Chloride 107 mmol/L (98-107); EST Glomerular Filtration Rate 66 mL/min (>60); Est Glom Filt Rate - Afr Amer 80 mL/min (>60); Globulin 4.4 g/dL (2.2-4.2); Glucose 73 mg/dL (74-106); Potassium 4.2 mmol/L (3.5-5.1); Protein, Total 8.2 g/dL (6.4-8.2); Sodium Level 138 mmol/L (136-145)
[2024-04-26 14:32] LABS: Vitamin D,25 Hydroxy 38.4 ng/mL
== END | disposition home or self-care (01) ==
LOC: LAB 11:52
PROVIDERS: PCP Family Medicine Geriatric Medicine; Referring Provider Family Medicine Geriatric Medicine; Visit Provider Family Medicine Geriatric Medicine
DX: E11.65 Type 2 diabetes mellitus with hyperglycemia (principal); I10 Essential (primary) hypertension; E55.9 Vitamin D deficiency, unspecified
CPT/HCPCS: 36415; 80053; 82306; 84443; 85025

== ENCOUNTER → 2024-10-28 | Outpatient (CLI) | payer MEDICARE, OTHER, SELFPAY ==
[2024-10-28 13:47] LABS: Hematocrit 44.1 % (37-47); Hemoglobin 14.3 g/dL (12.0-15.0); Immature Granulocytes Count 0.030 X10^3/uL (0.0-0.0); Mean Corp Hgb Conc 32.4 g/dL (32-36); Mean Corpuscular Volume 93.4 fL (81-99); Mean Platelet Vol. 10.4 fl (6.2-12.0); NRBC Flagged by Analyzer 0 % (0-5); Platelet Count 237 K/mm3 (150-450); RBC Distribution Width CV 13.5 % (11.6-14.6); RBC Distribution Width SD 46.2 fl (35.1-43.9); Red Blood Count 4.72 M/mm3 (4.2-5.4); White Blood Count 10.8 K/mm3 (4.4-11.0)
[2024-10-28 14:42] LABS: AST(SGOT) 16 U/L (<=31); Alanine Aminotransfer ALT/SGPT 10 U/L (<=34); Albumin, Serum 4.0 g/dL (3.4-4.8); Alkaline Phosphatase 70 U/L (35-104); Anion Gap 13 (5-15); BUN 11 mg/dL (4-19); BUN/Creat Ratio 12.4 RATIO (10-20); Calcium,Total 9.3 mg/dL (7.6-11.0); Carbon Dioxide 23.8 mmol/L (21.0-32.0); Chloride 103 mmol/L (98-108); Globulin 3.3 g/dL (2.2-4.2); Glucose 91 mg/dL (70-99); Potassium 4.2 mmol/L (3.3-5.1); Vitamin D,25 Hydroxy 47.0 ng/mL (30-100)
--- OUTSIDE RECORDS SUMMARY | 2024-10-28 16:42 | XMS RPT_ITS | CCD ---
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 Renan Serrano Primary Care Provider Hunter, Dr. Renan Serrano Referring Provider Dr. Cassi Saha Attending Provider [phone] Judy SOLUTIONS CONSULTANT, SOLUTIONS CONSULTANT-C Estelle Attending Provider Judy SOLUTIONS CONSULTANT, SOLUTIONS CONSULTANT-C Estelle Referring Provider Dr. Renan Harrison Chi Primary Care Provider Hunter, Dr. Renan Serrano Referring Provider Dr. Cassi Saha Attending Provider Judy SOLUTIONS CONSULTANT, SOLUTIONS CONSULTANT-C Estelle Attending Provider Judy SOLUTIONS CONSULTANT, SOLUTIONS CONSULTANT-C Estelle Referring Provider Dejan Harrison Unavailable Unavailable Unavailable MARKY CABELLO Attending Unavailable MARKY CABELLO Referring Unavailable Dr. Dejan Harrison Primary Care Unavailable Dr. Renan Harrison Chi Primary Care Provider Dr. Renan Harrison Chi Referring Provider Dr. Wale Mobley Attending Provider LYLE Khan Attending Provider Dr. Wale Mobley Referring Provider Dejan Harrison MD Primary Care Provider MARKY CABELLO Attending Unavailable DEJAN HARRISON Primary Care Unavailable MARKY CABELLO Referring Unavailable HUNTERDEJAN Primary Care Unavailable Renan Harrison Zach Primary Care Unavailable Renan Harrison Chi Attending Unavailable Renan Harrison Chi Attending Unavailable Renan Harrison Chi Referring Unavailable Hunter, Renan Chi Primary Care Unavailable Allergies Allergy Classification Reported Allergen(s) Allergy Type Date of Onset Reaction(s) Facility (16 sources) Penicillins; Translations: [Penicillins] Drug Allergy 11-22-2010 Other: See Comments, Unknown [facility] Medications Current Medications Medication Drug Class(es) Dates Sig (Normalized) Sig (Original) ascorbic acid 500 mg oral tablet (9 sources) Vitamin C Start: 12-22-2020 take 1 tablet by mouth every other day Ascorbic Acid (Vitamin C) (Vitamin C) 500 mg Tablet Active 500 MG PO EVERY OTHER DAY December 21, 2020 11:00pm atorvastatin 40 mg oral tablet (12 sources) HMG-CoA Reductase Inhibitor Start: 05-28-2022 take 0.5 tablet by mouth once daily atorvastatin (Lipitor) 40 mg tablet Take 0.5 tablets (20 mg) by mouth once daily. 05/28/2022 Active Start: 10-24-2017 take 20 mg by mouth once daily Atorvastatin Active 20 MG PO DAILY October 23, 2017 11:00pm atorvastatin (LI PITOR) 40 mg ORAL tablet Take 40 mg by mouth. 0 Active Comment on above: Take 40 mg by mouth. cholecalciferol 0.05 mg oral tablet (9 sources) Vitamin D Start: take 1 tablet by mouth once daily Cholecalciferol (Vitamin D3) (Vitamin D3) 50 mcg (2,000 unit) Tablet Active 50 MCG PO DAILY December 21, 2020 11:00pm dexamethasone 0.001 mg/mg / neomycin 0.0035 mg/mg / polymyxin b 10 unt/mg ophthalmic ointment (9 sources) Aminoglycoside Antibacterial, Polymyxin-class Antibacterial, Corticosteroid Start: Neomycin-Polymyxin B-Dexameth (Maxitrol) 3.5 mg/g-10,000 unit/g-0.1 % ointment Active 1 APPLIC LEFT EYE THREE TIMES A DAY 3.5 December 28, 2020 11:00pm space evenly during waking hours FLAXSEED OIL ORAL (2 sources) FLAXSEED OIL ORA L Take by mouth. Flaxseed Oil 1400 MG Oral Capsule Active FLAXSEED OIL ORA L Take by mouth. Flaxseed Oil 1400 MG Oral Capsule 0 Active gabapentin 300 mg oral capsule (12 sources) Anti-epileptic Agent Start: 04-20-2022 take 1 capsule by mouth twice daily gabapentin (Neurontin) 300 mg capsule Take 1 capsule (300 mg) by mouth 2 times a day. 04/20/2022 Active Start: 10-24-2017 take 300 mg by mouth once flora y Gabapentin Active 300 MG PO DAILY October 23, 2017 11:00pm take 1 capsule by mo [facility] three times daily gabapentin (NEURONTIN) 300 mg ORAL capsule Take 300 mg by mouth three times daily. 0 Active Comment on above: Take 300 mg by mouth three times daily. linseed oil 1000 mg oral capsule (9 sources) Start: 9 take 1000 mg by mouth once daily Flaxseed Oil Active 1000 MG PO DAILY November 16, 2018 11:00pm loratadine 10 mg oral tablet (9 sources) Start: 9 take 1 tablet by mouth once daily Loratadine (Claritin) 10 mg tablet Active 10 MG PO DAILY November 16, 2018 11:00pm metFORMIN hydrochloride 500 mg oral tablet (14 sources) Biguanide Start: Metformin Active MG PO September 24, 2022 11:00pm Start: 04-18-2022 take 1 tablet by radha twice daily metFORMIN (Glucophage) 500 mg tablet Take 1 tablet (500 mg) by mouth 2 times a day. 04/18/2022 Active Start: 10-24-2017 End: 10-26-2020 take 500 mg by mouth once daily Metformin Discontinued 500 MG PO DAILY October 23, 2017 11:00pm October 26, 2020 12:07pm pioglitazone 15 mg oral tablet (5 sources) Peroxisome Proliferator Receptor alpha Agonist, Peroxisome Proliferator Receptor gamma Agonist, Thiazolidinedione Start: 10-14-2022 take 1 tablet by mouth once daily pioglitazone (Actos) 15 mg tablet Take 1 tablet (15 mg) by mouth once daily. 10/14/2022 Active Start: 09-25-2022 Pioglitazone A ctive MG PO September 24, 2022 11:00pm Completed/Discontinued Medications Medication Drug Class(es) Dates Sig (Normalized) Sig (Original) acetaminophen 325 mg / oxyCODONE hydrochloride 5 mg oral tablet (10 sources) Opioid Agonist Start: 12-29-2020 End: 01-11-2021 take 1 tablet by mouth every six hours Oxycodone-Acetamino phen (Percocet) 5-325 mg tablet Discontinued 1 TABLET PO EVERY 6 HOURS 10 08December 29, 2020 January 11, 2021 9:11am 20 tabs (twenty) oxyCODONE-acetam inophen (PERCOCET) 7.5-325 mg ORAL tablet Take 1 tablet by mouth. 0 Active Comment on above: Take 1 tablet by radha th. acetaminophen 325 mg / traMADol hydrochloride 37.5 mg oral tablet (1 source) Opioid Agonist take 1 tablet by mouth every four hours as needed tramadol-acetaminoph en 37.5-325 mg ORAL per tablet Take 1 tablet by mouth every 4 hours as needed. 0 Active Comment on above: Take 1 tablet by radha th every 4 hours as needed. clindamycin 300 mg oral capsule (9 sources) Lincosamide Antibacterial Start: 12-30-19 End: 01-12-20 take 1 capsule by mouth three times daily Clindamycin Hcl (Cleocin Hcl) 300 mg capsule Discontinued 300 MG PO THREE TIMES A DAY December 28, 2020 11:00pm January 11, 2021 9:10am docusate sodium 100 mg oral capsule (1 source) take 1 capsule by mouth every twelve hours as needed docusate sodium (COLACE) 100 mg ORAL capsule Take 100 mg by mouth twice daily as needed. 0 Active Comment on above: Take 100 mg by mouth twice daily as needed. estradiol 2 mg oral tablet (13 sources) Estrogen Start: 10-25-19 End: 01-01-20 take 2 mg by mouth once daily Estradiol Discontinued 2 MG PO DAILY October 23, 2017 11:00pm November 13, 2021 1:17pm Estrace 2 MG Ora l Tablet Quantity: 0 Refills: 0 Ordered: 24-Feb-2020 DO Active Comment on above: Take 2 mg by mouth. Flaxseed Oil 1400 MG Oral Capsule (2 sources) Flaxseed Oil 140 0 MG Oral Capsule Quantity: 0 Refills: 0 Ordered: 28-Jun-2022 DO Active IPRATROPIUM/ALBUTER OL SULFATE (COMBIVENT INHALATION) (1 source) IPRATROPIUM/ALBU TEROL SULFATE (COMBIVENT INHALATION) Inhale 2 Puffs as instructed as needed. 0 Active Comment on above: Inhale 2 Puffs as in structed as needed. L.Acidoph,Saliva-B. Bif-S.Therm (Acidophilus Probiotic Blend) 175 mg capsule (9 sources) Start: End: 1 take 1 capsule by mouth once daily L.Acidoph,Saliva-B.Bi f-S.Therm (Acidophilus Probiotic Blend) 175 mg capsule Discontinued 1 CAP PO DAILY December 28, 2020 11:00pm January 11, 2021 9:11am Start: 12-29-2020 End: 01-11-2021 take 1 capsule by mouth once daily L.Acidoph,Saliva-B.Bif-S.Therm (Acidophi malina Probiotic Blend) 175 mg capsule Discontinued 1 CAP PO DAILY December 29, 2020 12:00am January 11, 2021 10:11am levoFLOXacin 750 mg oral tablet (1 source) Quinolone Antimicrobial levoFLOXacin (LEVAQUIN) 750 mg ORAL tablet Take 750 mg by mouth. 0 Active Comment on above: Take 750 mg by mouth . metroNIDAZOLE 500 mg oral tablet (2 sources) Nitroimidazole Antimicrobial Start: 06-29-19 23 take 1 tablet by mouth twice daily metroNIDAZOLE 500 MG Oral Tablet TAKE 1 TABLET TWICE DAILY UNTIL FINISHED. Quantity: 14 Refills: 0 Ordered: 28-Jun-2022 Marky Cabello MD Start : 28-Jun-2022 Active take in combination with Bactrim 24 hr nicotine 0.292 mg/hr transdermal system (10 sources) Cholinergic Nicotinic Agonist Start: 10-25-19 18 End: 11-18-19 19 Nicotine Discontinued 1 EACH TD DAILY October 23, 2017 11:00pm November 17, 2018 11:20am apply 1 dose transde rmal route every twenty-four hours nicotine (NICODERM CQ) 21 mg/24 hr TRANSDERM. Apply 1 Patch as directed every 24 hours. 0 Active Comment on above: Apply 1 Patch as dir ected every 24 hours. sulfamethoxazole 800 mg / trimethoprim 160 mg oral tablet (2 sources) Dihydrofolate Reductase Inhibitor Antibacterial, Sulfonamide Antimicrobial Start: 06-29-19 23 take 1 tablet by mouth twice daily Sulfamethoxazole-Tr imethoprim 800-160 MG Oral Tablet TAKE 1 TABLET TWICE DAILY UNTIL FINISHED. 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] 02-02-2021 Episodic Complications of surgical procedures or medical care (13 sources) Delayed healing of surgical wound; Translations: [Other complications of procedures, not elsewhere classified, initial encounter] 02-09-2021 Episodic Diabetes mellitus with complications (1 source) Type 2 diabetes mellitus with hyperglycemia; Translations: [Type 2 diabetes mellitus with hyperglycemia] Onset: 05-14-2024 Chronic Diabetes mellitus without complication (9 sources) Diabetes mellitus; Translations: [Type 2 diabetes mellitus without complications] 12-22-2020 Chronic Diseases of white blood cells (20 sources) Leukocytosis; Translations: [Elevated white blood cell count, unspecified] Chronic Neoplasms of unspecified nature or uncertain behavior (18 sources) Neoplasm of skin of eyelid; Translations: [Neoplasm of unspecified behavior of bone, soft tissue, and skin] 11-23-2020 Episodic Other eye disorders (9 sources) Epiphora of left eye due to tear drainage disorder; Translations: [Epiphora due to insufficient drainage, left side] 11-23-2020 Episodic Other hematologic conditions (9 sources) Erythrocytosis; Translations: [Secondary polycythemia] 11-03-2017 Episodic Other hematologic conditions (4 sources) Secondary polycythemia; Translations: [Polycythemia, secondary] Episodic Other nervous system disorders (9 sources) Acute postoperative pain; Translations: [Other acute postprocedural pain] 12-29-2020 Episodic Other non-epithelial cancer of skin (9 sources) Squamous cell carcinoma; Translations: [Squamous cell carcinoma of skin of left lower limb, including hip] 11-13-2021 Episodic Other and delivery including normal (2 sources) Delivery normal; Translations: [Normal delivery] Episodic Comment on above: 04/05/1975; VAGINAL; FEMALE; 7LBS01/15/1977- twins; VAGINAL; FEMALE; 3LBS 3OZ, FEMALE; 3LBS 4OZ; Other screening for suspected conditions (not mental disorders or infectious disease) (20 sources) Patient encounter status; Translations: [Encounter for screening for malignant neoplasm of respiratory organs] Onset: 12-31-2022 Episodic Other skin disorders (9 sources) Keratoacanthoma; Translations: [Other specified epidermal thickening] 11-23-2020 Episodic Other skin disorders (9 sources) Actinic keratosis; Translations: [Actinic keratosis] 01-01-2021 Episodic Other skin disorders (2 sources) Ruptured epidermal cyst; Translations: [Epidermal cyst] 10-03-2022 Episodic Other skin disorders (2 sources) Epidermal cyst; Translations: [Sebaceous cyst] 10-03-2022 Episodic Residual codes; unclassified (9 sources) Family history of malignant neoplasm of skin; Translations: [Family history of malignant neoplasm of other organs or systems] 11-23-2020 Episodic Residual codes; unclassified (2 sources) Past history of procedure; Translations: [Other specified personal history presenting hazards to health] Episodic Comment on above: /; Spondylosis; intervertebral disc disorders; other back problems (1 source) Displacement of lumbar intervertebral disc without myelopathy; Translations: [Displacement of lumbar intervertebral disc without myelopathy] Onset: 05-30-2003 07-18-2003 Chronic Spondylosis; intervertebral disc disorders; other back problems (6 sources) Back problem; Translations: [Dorsopathy, unspecified] 11-21-2020 Episodic Substance-related disorders (20 sources) Tobacco dependence, continuous; Translations: [Nicotine dependence, unspecified, with unspecified nicotine-induced disorders] Chronic Unclassified (1 source) Patient encounter status 02-05-2024 Past or Other Problems Problem Classification Problem Date Documented Da te Episodic/Chronic Crushing injury or internal injury (1 source) Traumatic pneumothorax without open wound into thorax; Translations: [Pneumothorax, closed, traumatic] Onset: 11-22-2010 11-22-2010 Episodic Inflammatory diseases of female pelvic organs (8 sources) Abscess of labia; Translations: [Other abscess of vulva] Onset: 11-22-2022 11-22-2022 Episodic Other fractures (1 source) Fracture of rib; Translations: [Rib fracture] Onset: 11-22-2010 11-22-2010 Episodic Unclassified (2 sources) Finding of menstrual bleeding; Translations: [Menstruation] Comment on above: Onset age 11 years; Results Test Name Value Interpretation Reference Range Facility CBC W/Diff, Automatedon Absolute Lymph 3.87 X10 3/uL Normal 0.83-4.51 [facility] Comment on above: Performed By: #### L 506.1000, L500.4050, L100.0100, [id number] #### [facility] [address] [place], [address] Absolute Neut 6.0 X10 3/uL Normal 2.0-7.7 [facility] Comment on above: Performed By: #### L 506.1000, L500.4050, L100.0100, [id number] #### [facility] [address] [place], [address] Basophils/100 WBC (Bld) 0.6 % Normal 0-1 [facility] Comment on above: Performed By: #### L 506.1000, L500.4050, L100.0100, [id number] #### [facility] [address] [place], [address] Eosinophils/100 WBC (Bld) 1.2 % Normal 0-5 [facility] Comment on above: Performed By: #### L 506.1000, L500.4050, L100.0100, [id number] #### [facility] [address] [place], [address] Erythrocyte distribution width (RBC) [Ratio] 13.4 % Normal 11.6-14.6 [facility] Comment on above: Performed By: #### L 506.1000, L500.4050, L100.0100, [id number] #### [facility] [address] [place], [address] Hematocrit (Bld) [Volume fraction] 48.2 % High 37-47 [facility] Comment on above: Performed By: #### L 506.1000, L500.4050, L100.0100, [id number] #### [facility] [address] [place], [address] Hemoglobin (Bld) [Mass/Vol] 15.6 g/dL High 12.0-15.0 [facility] Comment on above: Performed By: #### L 506.1000, L500.4050, L100.0100, [id number] #### [facility] [address] [place], [address] IG% 0.400 Normal 0.0-0.9 [facility] Comment on above: Result Comment: IG% - Immature Granulocytes (promyelocytes, myelocytes and metamyelocytes) > 1% indicates that a LEFT SHIFT is Present. Performed By: #### L 506.1000, L500.4050, L100.0100, [id number] #### [facility] [address] [place], [address] Lymphocytes/100 WBC (Bld) 35.8 % Normal 19-41 [facility] Comment on above: Performed By: #### L 506.1000, L500.4050, L100.0100, [id number] #### [facility] [address] [place], [address] MCH (RBC) [Entitic mass] 29.5 pg Normal 27.0-32.0 [facility] Comment on above: Performed By: #### L 506.1000, L500.4050, L100.0100, [id number] #### [facility] [address] [place], [address] MCHC (RBC) [Mass/Vol] 32.4 g/dL Normal 32-36 [facility] Comment on above: Performed By: #### L 506.1000, L500.4050, L100.0100, [id number] #### [facility] [address] [place], [address] MCV (RBC) [Entitic vol] 91.3 fL Normal 81-99 [facility] Comment on above: Performed By: #### L 506.1000, L500.4050, L100.0100, [id number] #### [facility] [address] [place], [address] Monocytes/100 WBC (Bld) 6.5 % Normal 0-10 [facility] Comment on above: Performed By: #### L 506.1000, [id number], L100.0100, [id number] #### [facility] [address] [place], [address] Neutrophils/100 WBC (Bld) 55.5 % Normal 47-70 [facility] Comment on above: Performed By: #### L 506.1000, [id number], L100.0100, [id number] #### [facility] [address] [place], [address] Nucleated RBC (Bld) [#/Vol] 0 10*3/uL Normal 0-5 [facility] Comment on above: Performed By: #### L 506.1000, L500.4050, L100.0100, [id number] #### [facility] [address] [place], [address] Platelet mean volume (Bld) [Entitic vol] 10.3 fL Normal 6.2-12.0 [facility] Comment on above: Performed By: #### L 506.1000, L500.4050, L100.0100, [id number] #### [facility] [address] [place], [address] Platelets (Bld) [#/Vol] 280 10*3/uL Normal 150-450 [facility] Comment on above: Performed By: #### L 506.1000, [id number], L100.0100, [id number] #### [facility] [address] [place], [address] RBC (Bld) [#/Vol] 5.28 10*6/uL Normal 4.2-5.4 [facility] Comment on above: Performed By: #### L 506.1000, L500.4050, L100.0100, [id number] #### [facility] [address] [place], [address] RDW SD 45.1 fl High 35.1-43.9 [facility] Comment on above: Performed By: #### L 506.1000, L500.4050, L100.0100, [id number] #### [facility] [address] [place], [address] WBC (Bld) [#/Vol] 10.8 10*3/uL Normal 4.4-11.0 [facility] Comment on above: Performed By: #### L 506.1000, [id number], L100.0100, [id number] #### [facility] [address] [place], [address] Comprehensive Metabolic Prof [facility] 04-26-2024 Albumin [Mass/Vol] 3.8 g/dL Normal 3.2-5.0 [facility] Comment on above: Performed By: #### L 506.1000, L500.4050, L100.0100, [id number] #### [facility] [address] [place], [address] Albumin/Globulin [Mass ratio] 0.9 {ratio} Normal 0.9-2.4 [facility] Comment on above: Performed By: #### L 506.1000, L500.4050, L100.0100, [id number] #### [facility] [address] [place], [address] ALK P 73 U/L Normal 45-117 [facility] Comment on above: Performed By: #### L 506.1000, L500.4050, L100.0100, [id number] #### [facility] [address] [place], [address] ALT [Catalytic activity/Vol] 20 U/L Normal 13-56 [facility] Comment on above: Performed By: #### L 506.1000, L500.4050, L100.0100, [id number] #### [facility] [address] [place], [address] AST [Catalytic activity/Vol] 16 U/L Normal 15-37 [facility] Comment on above: Performed By: #### L 506.1000, [id number], L100.0100, [id number] #### [facility] [address] [place], [address] Bilirubin [Mass/Vol] 0.70 mg/dL Normal 0.20-1.00 [facility] Comment on above: Result Comment: For patients on eltrombopag therapy, use of Dimension [place] TBIL is not recommended. Performed By: #### L 506.1000, L500.4050, L100.0100, [id number] #### [facility] [address] [place], [address] BUN/CRE 15.6 RATIO Normal 10-20 [facility] Comment on above: Performed By: #### L 506.1000, L500.4050, L100.0100, [id number] #### [facility] [address] [place], [address] CA,Total 9.4 mg/dL Normal 8.5-10.1 [facility] Comment on above: Performed By: #### L 506.1000, L500.4050, L100.0100, [id number] #### [facility] [address] [place], [address] Chloride [Moles/Vol] 107 mmol/L Normal 98-107 [facility] Comment on above: Performed By: #### L 506.1000, L500.4050, L100.0100, [id number] #### [facility] [address] [place], [address] CO2 [Moles/Vol] 26.0 mmol/L Normal 21.0-32.0 [facility] Comment on above: Performed By: #### L 506.1000, L500.4050, L100.0100, [id number] #### [facility] [address] [place], [address] Creatinine [Mass/Vol] 0.90 mg/dL Normal 0.55-1.02 [facility] Comment on above: Result Comment: The validity of the calculated GFR GFRAA in patients over 70 years has not been determined. Clinical correlation is essential. Performed By: #### L 506.1000, L500.4050, L100.0100, [id number] #### [facility] [address] [place], [address] EST GFR - AA 80 mL/min Normal >60 [facility] Comment on above: Result Comment: Afri can [place] Citizen GFR Calc Performed By: #### L 506.1000, L500.4050, L100.0100, [id number] #### [facility] [address] [place], [address] GAP 5 Normal 5-15 [facility] Comment on above: Performed By: #### L 506.1000, L500.4050, L100.0100, [id number] #### [facility] [address] [place], [address] GFR/1.73 sq M.predicted among non-blacks MDRD (S/P/Bld) [Vol rate/Area] 66 mL/min/{1.73_m2} Normal >60 [facility] Comment on above: Result Comment: Non- GFR Calc Performed By: #### L 506.1000, L500.4050, L100.0100, [id number] #### [facility] [address] [place], [address] Globulin (S) [Mass/Vol] 4.4 g/dL High 2.2-4.2 [facility] Comment on above: Performed By: #### L 506.1000, L500.4050, L100.0100, [id number] #### [facility] [address] [place], [address] Glucose [Mass/Vol] 73 mg/dL Low 74-106 [facility] Comment on above: Performed By: #### L 506.1000, [id number], L100.0100, [id number] #### [facility] [address] [place], [address] Potassium [Moles/Vol] 4.2 mmol/L Normal 3.5-5.1 [facility] Comment on above: Performed By: #### L 506.1000, L500.4050, L100.0100, [id number] #### [facility] [address] [place], [address] Sodium [Moles/Vol] 138 mmol/L Normal 136-145 [facility] Comment on above: Performed By: #### L 506.1000, L500.4050, L100.0100, [id number] #### [facility] [address] [place], [address] T PROT 8.2 g/dL Normal 6.4-8.2 [facility] Comment on above: Performed By: #### L 506.1000, L500.4050, L100.0100, [id number] #### [facility] [address] [place], [address] Urea nitrogen [Mass/Vol] 14 mg/dL Normal 7-18 [facility] Comment on above: Performed By: #### L 506.1000, L500.4050, L100.0100, [id number] #### [facility] [address] [place], [address] Thyroid Stim Hormone (TSH)on 04-26-2024 TSH 1.860 uIU/mL Normal 0.358-3.740 [facility] Comment on above: Performed By: #### L 506.1000, L500.4050, L100.0100, [id number] #### [facility] [address] [place], [address] Vitamin D,25 Hydroxyon 04-26 Vitamin D 25-OH 38.4 ng/mL Normal [facility] Comment on above: Result Comment: Evie min D 25(OH) Status Range Deficiency <20 ng/mL (50nmol/L) Insufficiency 20 - 30 ng/mL (50 - 75 nmol/L) Sufficiency 30 - 100 ng/mL (75 - 250 nmol/L) Toxicity >100 ng/mL (>250 nmol/L) Performed By: #### L 506.1000, L500.4050, L100.0100, L501.9520 #### [facility] [address] [place], [address] BI MAMMO BILATERAL SCREENING TOMOSYNTHESISon 02-05-2024 BI MAMMO BILATERAL SCREENING TOMOSYNTHESIS Interpreted By: Billy Millan, STUDY: BI MAMMO BILATERAL SCREENING TOMOSYNTHESIS; 02/05/2024 1:15 pm ACCESSION NUMBER(S): [id number] ORDERING CLINICIAN: MARKY CABELLO INDICATION: Screening. ,Z12.31 Encounter for screening mammogram for malignant neoplasm of breast COMPARISON: 11/05/2021, 12/1922 FINDINGS: 2D and tomosynthesis images were reviewed at 1 mm slice thickness. Density: The breasts are almost entirely fatty. No suspicious masses or calcifications are identified. IMPRESSION: No mammographic evidence of malignancy. BI-RADS CATEGORY: BI-RADS Category: 1 Negative. Recommendation: Annual Screening. Recommended Date: 1 Year. Laterality: Bilateral. For any future breast imaging appointments, please call [phone]). MACRO: None Signed by: Billy Millan 02/05/2024 3:23 PM Dictation workstation: [id number] [facility] DBT Breast - bilateralon No mammographic evid ence of malignancy. BI-RADS CATEGORY: BI-RADS Category: 1 Negative. Recommendation: Annual Screening. Recommended Date: 1 Year. Laterality: Bilateral. For any future breast imaging appointments, please call [phone]). MACRO: None Signed by: Billy Millan 02/05/2024 3:23 PM Dictation workstation: [id number] MMODAL Interpreted By: Billy Kohler, STUDY: BI MAMMO BILATERAL SCREENING TOMOSYNTHESIS; 02/05/2024 1:15 pm ACCESSION NUMBER(S): [id number] ORDERING CLINICIAN: MARKY CABELLO INDICATION: Screening. ,Z12.31 Encounter for screening mammogram for malignant neoplasm of breast COMPARISON: 11/05/2021, 12/1922 FINDINGS: 2D and tomosynthesis images were reviewed at 1 mm slice thickness. Density: The breasts are almost entirely fatty. No suspicious masses or calcifications are identified. [facility] MMODAL Billy Millan MD - 02/05/2024 Interpreted By: Billy Millan, STUDY: BI MAMMO BILATERAL SCREENING TOMOSYNTHESIS; 02/05/2024 1:15 pm ACCESSION NUMBER(S): [id number] ORDERING CLINICIAN: MARKY CABELLO INDICATION: Screening. ,Z12.31 Encounter for screening mammogram for malignant neoplasm of breast COMPARISON: 11/05/2021, 12/1922 FINDINGS: 2D and tomosynthesis images were reviewed at 1 mm slice thickness. Density: The breasts are almost entirely fatty. No suspicious masses or calcifications are identified. IMPRESSION: No mammographic evidence of malignancy. BI-RADS CATEGORY: BI-RADS Category: 1 Negative. Recommendation: Annual Screening. Recommended Date: 1 Year. Laterality: Bilateral. For any future breast imaging appointments, please call [phone]). MACRO: None Signed by: Billy Millan 02/05/2024 3:23 PM Dictation workstation: [id number] [facility] Work Phone: Radiology Study observation (narrative) [facility] Work Phone: DBT Breast - bilateralOrdere d By: Billy Millan on 02-05-2024 [facility] Work Phone: CBC W/Diff, Automatedon 08-0 Absolute Lymph 4.67 X10 3/uL High 0.83-4.51 [facility] Comment on above: Performed By: #### L 506.1000, L501.9520, L500.4050, L100.0100 #### [facility] [address] [place], [address] Absolute Neut 5.5 X10 3/uL Normal 2.0-7.7 [facility] Comment on above: Performed By: #### L 506.1000, L501.9520, L500.4050, L100.0100 #### [facility] [address] [place], [address] Basophils/100 WBC (Bld) 0.5 % Normal 0-1 [facility] Comment on above: Performed By: #### L 506.1000, L501.9520, L500.4050, L100.0100 #### [facility] [address] [place], [address] Eosinophils/100 WBC (Bld) 1.5 % Normal 0-5 [facility] Comment on above: Performed By: #### L 506.1000, L501.9520, L500.4050, L100.0100 #### [facility] [address] [place], [address] Erythrocyte distribution width (RBC) [Ratio] 13.2 % Normal 11.6-14.6 [facility] Comment on above: Performed By: #### L 506.1000, L501.9520, L500.4050, L100.0100 #### [facility] [address] [place], [address] Hematocrit (Bld) [Volume fraction] 45.4 % Normal 37-47 [facility] Comment on above: Performed By: #### L 506.1000, L501.9520, L500.4050, L100.0100 #### [facility] [address] [place], [address] Hemoglobin (Bld) [Mass/Vol] 15.1 g/dL High 12.0-15.0 [facility] Comment on above: Performed By: #### L 506.1000, L501.9520, L500.4050, L100.0100 #### [facility] [address] [place], [address] IG% 0.400 Normal 0.0-0.9 [facility] Comment on above: Result Comment: IG% - Immature Granulocytes (promyelocytes, myelocytes and metamyelocytes) > 1% indicates that a LEFT SHIFT is Present. Performed By: #### L 506.1000, L501.9520, L500.4050, L100.0100 #### [facility] [address] [place], [address] Lymphocytes/100 WBC (Bld) 41.2 % High 19-41 [facility] Comment on above: Performed By: #### L 506.1000, L501.9520, L500.4050, L100.0100 #### [facility] [address] [place], [address] MCH (RBC) [Entitic mass] 30.3 pg Normal 27.0-32.0 [facility] Comment on above: Performed By: #### L 506.1000, L501.9520, L500.4050, L100.0100 #### [facility] [address] [place], [address] MCHC (RBC) [Mass/Vol] 33.3 g/dL Normal 32-36 [facility] Comment on above: Performed By: #### L 506.1000, L501.9520, L500.4050, L100.0100 #### [facility] [address] [place], [address] MCV (RBC) [Entitic vol] 91.2 fL Normal 81-99 [facility] Comment on above: Performed By: #### L 506.1000, L501.9520, L500.4050, L100.0100 #### [facility] [address] [place], [address] Monocytes/100 WBC (Bld) 8.1 % Normal 0-10 [facility] Comment on above: Performed By: #### L 506.1000, L501.9520, L500.4050, L100.0100 #### [facility] [address] [place], [address] Neutrophils/100 WBC (Bld) 48.3 % Normal 47-70 [facility] Comment on above: Performed By: #### L 506.1000, L501.9520, L500.4050, L100.0100 #### [facility] [address] [place], [address] Nucleated RBC (Bld) [#/Vol] 0 10*3/uL Normal 0-5 [facility] Comment on above: Performed By: #### L 506.1000, L501.9520, L500.4050, L100.0100 #### [facility] [address] [place], [address] Platelet mean volume (Bld) [Entitic vol] 10.0 fL Normal 6.2-12.0 [facility] Comment on above: Performed By: #### L 506.1000, L501.9520, L500.4050, L100.0100 #### [facility] [address] [place], [address] Platelets (Bld) [#/Vol] 270 10*3/uL Normal 150-450 [facility] Comment on above: Performed By: #### L 506.1000, L501.9520, L500.4050, L100.0100 #### [facility] [address] [place], [address] RBC (Bld) [#/Vol] 4.98 10*6/uL Normal 4.2-5.4 [facility] Comment on above: Performed By: #### L 506.1000, L501.9520, L500.4050, L100.0100 #### [facility] [address] [place], [address] RDW SD 44.8 fl High 35.1-43.9 [facility] Comment on above: Performed By: #### L 506.1000, L501.9520, L500.4050, L100.0100 #### [facility] [address] [place], [address] WBC (Bld) [#/Vol] 11.3 10*3/uL High 4.4-11.0 [facility] Comment on above: Performed By: #### L 506.1000, L501.9520, L500.4050, L100.0100 #### [facility] [address] [place], [address] Comprehensive Metabolic Prof [facility] 10-27-2023 Albumin [Mass/Vol] 3.5 g/dL Normal 3.2-5.0 [facility] Comment on above: Performed By: #### L 506.1000, L501.9520, L500.4050, L100.0100 #### [facility] [address] [place], [address] Albumin/Globulin [Mass ratio] 0.8 {ratio} Low 0.9-2.4 [facility] Comment on above: Performed By: #### L 506.1000, L501.9520, L500.4050, L100.0100 #### [facility] [address] [place], [address] ALK P 81 U/L Normal 45-117 [facility] Comment on above: Performed By: #### L 506.1000, L501.9520, L500.4050, L100.0100 #### [facility] [address] [place], [address] ALT [Catalytic activity/Vol] 25 U/L Normal 13-56 [facility] Comment on above: Performed By: #### L 506.1000, L501.9520, L500.4050, L100.0100 #### [facility] [address] [place], [address] AST [Catalytic activity/Vol] 18 U/L Normal 15-37 [facility] Comment on above: Performed By: #### L 506.1000, L501.9520, L500.4050, L100.0100 #### [facility] [address] [place], [address] Bilirubin [Mass/Vol] 0.70 mg/dL Normal 0.20-1.00 [facility] Comment on above: Result Comment: For patients on eltrombopag therapy, use of Dimension Lyons TBIL is not recommended. Performed By: #### L 506.1000, L501.9520, L500.4050, L100.0100 #### [facility] [address] [place], [address] BUN/CRE 12.5 RATIO Normal 10-20 [facility] Comment on above: Performed By: #### L 506.1000, L501.9520, L500.4050, L100.0100 #### [facility] [address] [place], [address] CA,Total 9.0 mg/dL Normal 8.5-10.1 [facility] Comment on above: Performed By: #### L 506.1000, L501.9520, L500.4050, L100.0100 #### [facility] [address] [place], [address] Chloride [Moles/Vol] 109 mmol/L High 98-107 [facility] Comment on above: Performed By: #### L 506.1000, L501.9520, L500.4050, L100.0100 #### [facility] [address] [place], [address] CO2 [Moles/Vol] 24.0 mmol/L Normal 21.0-32.0 [facility] Comment on above: Performed By: #### L 506.1000, L501.9520, L500.4050, L100.0100 #### [facility] [address] [place], [address] Creatinine [Mass/Vol] 0.96 mg/dL Normal 0.55-1.02 [facility] Comment on above: Result Comment: The validity of the calculated GFR GFRAA in patients over 70 years has not been determined. Clinical correlation is essential. Performed By: #### L 506.1000, L501.9520, L500.4050, L100.0100 #### [facility] [address] [place], [address] EST GFR - AA 74 mL/min Normal >60 [facility] Comment on above: Result Comment: Afri can [place] Citizen GFR Calc Performed By: #### L 506.1000, L501.9520, L500.4050, L100.0100 #### [facility] [address] [place], [address] GAP 9 Normal 5-15 [facility] Comment on above: Performed By: #### L 506.1000, L501.9520, L500.4050, L100.0100 #### [facility] [address] [place], [address] GFR/1.73 sq M.predicted among non-blacks MDRD (S/P/Bld) [Vol rate/Area] 62 mL/min/{1.73_m2} Normal >60 [facility] Comment on above: Result Comment: Non- GFR Calc Performed By: #### L 506.1000, L501.9520, L500.4050, L100.0100 #### [facility] [address] [place], [address] Globulin (S) [Mass/Vol] 4.3 g/dL High 2.2-4.2 [facility] Comment on above: Performed By: #### L 506.1000, L501.9520, L500.4050, L100.0100 #### [facility] [address] [place], [address] Glucose [Mass/Vol] 73 mg/dL Low 74-106 [facility] Comment on above: Performed By: #### L 506.1000, L501.9520, L500.4050, L100.0100 #### [facility] [address] [place], [address] Potassium [Moles/Vol] 4.4 mmol/L Normal 3.5-5.1 [facility] Comment on above: Performed By: #### L 506.1000, L501.9520, L500.4050, L100.0100 #### [facility] [address] [place], [address] Sodium [Moles/Vol] 142 mmol/L Normal 136-145 [facility] Comment on above: Performed By: #### L 506.1000, L501.9520, L500.4050, L100.0100 #### [facility] [address] [place], [address] T PROT 7.8 g/dL Normal 6.4-8.2 [facility] Comment on above: Performed By: #### L 506.1000, L501.9520, L500.4050, L100.0100 #### [facility] [address] [place], [address] Urea nitrogen [Mass/Vol] 12 mg/dL Normal 7-18 [facility] Comment on above: Performed By: #### L 506.1000, L501.9520, L500.4050, L100.0100 #### [facility] [address] [place], [address] Thyroid Stim Hormone (TSH)on 10-27-2023 TSH 1.81 uIU/mL Normal 0.358-3.74 [facility] Comment on above: Performed By: #### L 506.1000, L501.9520, L500.4050, L100.0100 #### [facility] [address] [place], [address] Vitamin D,25 Hydroxyon 10-26 Vitamin D 25-OH 58.0 ng/mL Normal [facility] Comment on above: Result Comment: Evie min D 25(OH) Status Range Deficiency <20 ng/mL (50nmol/L) Insufficiency 20 - 30 ng/mL (50 - 75 nmol/L) Sufficiency 30 - 100 ng/mL (75 - 250 nmol/L) Toxicity >100 ng/mL (>250 nmol/L) Performed By: #### L 506.1000, L501.9520, L500.4050, L100.0100 #### [facility] [place], [address] Absolute lymphocyte countOrd ered By: Renan Harrison on 03-31-2023 Lymphocytes Auto (Unsp spec) [#/Vol] 4.58 10*3/uL 0.83-4.51 [facility] Basophil percentageOrdered B y: Renan Harrison on 03-31-2023 Basophils/100 WBC (Bld) 0.6 % 0-1 [facility] Bilirubin [Mass/Vol] 0.50 mg/dL 0.20-1.00 [facility] Comment on above: For patients on eltr ombopag therapy, use of Dimension Lyons TBIL is not recommended. Chloride [Moles/Vol] 108 mmol/L 98-107 [facility] Eosinophils/100 WBC (Bld) 1.2 % 0-5 [facility] Glucose [Mass/Vol] 79 mg/dL 74-106 [facility] Neutrophils (Bld) [#/Vol] 5.1 10*3/uL 2.0-7.7 [facility] Neutrophils/100 WBC (Bld) 47.9 % 47-70 [facility] Potassium [Moles/Vol] 4.2 mmol/L 3.5-5.1 [facility] Protein [Mass/Vol] 7.9 g/dL 6.4-8.2 [facility] Sodium [Moles/Vol] 141 mmol/L 136-145 [facility] WBC (Bld) [#/Vol] 10.7 10*3/uL 4.4-11.0 [facility] Blood erythrocytes count (nu mber/volume)Ordered By: Renan Harrison on 03-31-2023 RBC (Bld) [#/Vol] 5.07 10*6/uL 4.2-5.4 [facility] Blood hemoglobin measurement (mass/volume)Ordered By: Renan Harrison on 03-31-2023 Hemoglobin (Bld) [Mass/Vol] 15.1 g/dL 12.0-15.0 [facility] Blood lymphocytes/100 leukoc ytesOrdered By: Renan Harrison on 03-31-2023 Lymphocytes/100 WBC (Bld) 42.9 % 19-41 [facility] Blood monocytes/100 leukocyt esOrdered By: [facility] Monocytes/100 WBC (Bld) 7.0 % 0-10 [facility] Blood platelet mean volumeOr dered By: [facility] on 03-31-2023 Platelet mean volume (Bld) [Entitic vol] 10.2 fL 6.2-12.0 [facility] Determination of erythrocyte mean corpuscular volume (MCV)Ordered By: [facility] 03-31-[facility]23 MCV (RBC) [Entitic vol] 92.3 fL 81-99 [facility] Hematocrit Auto (Bld) [Volum e fraction]Ordered By: [facility] 03-31-2023 Hematocrit (Bld) [Volume fraction] 46.8 % 37-47 [facility] - Chemistry and C hemistry - challengeOrdered By: [facility] 03-31-2023 ALP [Catalytic activity/Vol] 77 U/L 45-117 [facility] ALT [Catalytic activity/Vol] 24 U/L 13-56 [facility] CO2 [Moles/Vol] 28.0 mmol/L 21.0-32.0 [facility] Globulin (S) [Mass/Vol] 4.1 g/dL 2.2-4.2 [facility] Urea nitrogen/Creatinine [Mass ratio] 18.6 mg/mg 10-20 [facility] - Hematology and Cell countsOrdered By: [facility] 03-31-2023 Erythrocyte distribution width (RBC) [Entitic vol] 44.9 fL 35.1-43.9 [facility] Erythrocyte distribution width (RBC) [Ratio] 13.2 % 11.6-14.6 [facility] Immature granulocytes/100 WBC (Bld) 0.400 % 0.0-0.9 [facility] Comment on above: IG% - Immature Granu locytes (promyelocytes, myelocytes and metamyelocytes) > 1% indicates that a LEFT SHIFT is Present. MCH (RBC) [Entitic mass] 29.8 pg 27.0-32.0 [facility] Nucleated RBC/100 WBC (Bld) [Ratio] 0 % 0-5 [facility] [Mass/Vol]Or dered By: Renan Harrison on 03-31-2023 MCHC (RBC) [Mass/Vol] 32.3 g/dL 32-36 [facility] No Panel InformationOrdered By: Renan Harrison on 03-31-2023 Estimated GFR (MDRD) Amer 74 mL/min >60 [facility] Comment on above: GFR Calc Estimated GFR (MDRD) Non-Af Amer 61 mL/min >60 [facility] Comment on above: Non- GFR Calc Thyroid Stimulating Hormone (TSH) 1.35 uIU/mL 0.358-3.74 [facility] Vitamin D 25-Hydroxy 56.2 ng/mL [facility] Comment on above: Vitamin D 25(OH) Sta tus Range Deficiency <20 ng/mL (50nmol/L) Insufficiency 20 - 30 ng/mL (50 - 75 nmol/L) Sufficiency 30 - 100 ng/mL (75 - 250 nmol/L) Toxicity >100 ng/mL (>250 nmol/L) Platelets bldOrdered By: Renan Harrison on 03-31-2023 Platelets (Bld) [#/Vol] 287 10*3/uL 150-450 [facility] Serum or plasma albumin jerry urement (mass/volume)Ordered By: Renan Harrison on 03-31-2023 Albumin [Mass/Vol] 3.8 g/dL 3.2-5.0 [facility] Serum or plasma albumin/glob ulin mass ratioOrdered By: Renan Harrison 03-31-2023 Albumin/Globulin [Mass ratio] 0.9 {ratio} 0.9-2.4 [facility] Serum or plasma calcium jerry urement (mass/volume)Ordered By: Renan Harrison on 03-31-2023 Calcium [Mass/Vol] 9.0 mg/dL 8.5-10.1 [facility] Serum or plasma creatinine m easurement (mass/volume)Ordered By: Renan Harrison on 03-31-2023 Creatinine [Mass/Vol] 0.97 mg/dL 0.55-1.02 [facility] Comment on above: The validity of the calculated GFR & GFRAA in patients over 70 years has not been determined. Clinical correlation is essential. Serum or plasma urea nitroge n measurement (mass/volume)Ordered By: Renan Harrison on 03-31-2023 Urea nitrogen [Mass/Vol] 18 mg/dL 7-18 [facility] Thin prep Papanicolaou smear with manual screeningOrdered By: Renan Harrison on 03-31-2023 Thin prep Papanicolaou smear with manual screening 19 U/L 15-37 [facility] Thin prep Papanicolaou smear with manual screening 5 5-15 [facility] Cervical AND or Vaginal cyto logy studyon 12-31-2022 Cytology Cervical or vaginal smear or scraping study Pathology report.total SEE COMMENT Gynecologic Cytology Case: [id number] Authorizing Provider: Marky Cabello MD Collected: 12/31/2022 1120 Ordering Location: [facility] Received: 12/31/2022 1120 Office Building First Screen: ALFONSO Ortiz Specimen: ThinPrep Liquid-Based Pap-Imaging System Screen, VAGINA, SCREENING Cytology study comment SEE COMMENT A. THINPREP PAP VAGINA, SCREENING - Specimen Adequacy Satisfactory for evaluation General Categorization Negative for intraepithelial lesion or malignancy. Descriptive Interpretation Negative for intraepithelial lesion or malignancy Specimen does not meet the requisition-stated criteria for HPV testing. See Pap test interpretation above. Laboratory comment SEE COMMENT Slide(s) initially screened by ALFONSO Ortiz at [address] [id number] By the signature on this report, the individual or group listed as making the Final Interpretation/Diagnosis certifies that they have reviewed this case. This specimen has been analyzed by the ThinPrep Imaging System ([employer] an automated imaging and review system, which assists the laboratory in evaluating cells on ThinPrep Pap tests. Following automated imaging, selected romero from every slide were reviewed by a production underwriter and/or pathologist. Cervical cytology is a screening procedure primarily for squamous cancers and precursors and has associated false-negative and false-positives results as evidenced by published data. Your patient's test should be interpreted in this context, together with the patient's history and clinical findings. Regular sampling and follow-up of unexplained clinical signs and symptoms are recommended to minimize false negative results. LAB AP HPV HR Reflex if ASCUS only LAB AP HPV GENOTYPE QUESTION Yes Menstrual History Hysterectomy Normal [facility] Absolute lymphocyte countOrd ered By: Renan Harrison on 10-22-2022 Lymphocytes Auto (Unsp spec) [#/Vol] 4.71 10*3/uL 0.83-4.51 [facility] Basophil percentageOrdered B y: Renan Harrison on 10-22-2022 Basophils/100 WBC (Bld) 0.4 % 0-1 [facility] Bilirubin [Mass/Vol] 0.50 mg/dL 0.20-1.00 [facility] Comment on above: For patients on eltr ombopag therapy, use of Dimension [place] TBIL is not recommended. Chloride [Moles/Vol] 105 mmol/L 98-107 [facility] Eosinophils/100 WBC (Bld) 1.9 % 0-5 [facility] Glucose [Mass/Vol] 68 mg/dL 74-106 [facility] Neutrophils (Bld) [#/Vol] 5.4 10*3/uL 2.0-7.7 [facility] Neutrophils/100 WBC (Bld) 47.5 % 47-70 [facility] Potassium [Moles/Vol] 4.0 mmol/L 3.5-5.1 [facility] Protein [Mass/Vol] 8.0 g/dL 6.4-8.2 [facility] Sodium [Moles/Vol] 138 mmol/L 136-145 [facility] WBC (Bld) [#/Vol] 11.3 10*3/uL 4.4-11.0 [facility] Blood erythrocytes count (nu mber/volume)Ordered By: Renan Harrison on 10-22-2022 RBC (Bld) [#/Vol] 4.96 10*6/uL 4.2-5.4 [facility] Blood hemoglobin measurement (mass/volume)Ordered By: Renan Harrison on 10-22-2022 Hemoglobin (Bld) [Mass/Vol] 15.1 g/dL 12.0-15.0 [facility] Blood lymphocytes/100 leukoc ytesOrdered By: Renan Harrison on 10-22-2022 Lymphocytes/100 WBC (Bld) 41.7 % 19-41 [facility] Blood monocytes/100 leukocyt esOrdered By: Renan Harrison on 10-22-2022 Monocytes/100 WBC (Bld) 8.2 % 0-10 [facility] Blood platelet mean volumeOr dered By: Renan Harrison on 10-22-2022 Platelet mean volume (Bld) [Entitic vol] 10.3 fL 6.2-12.0 [facility] Determination of erythrocyte mean corpuscular volume (MCV)Ordered By: Renan Harrison on 10-22-2022 MCV (RBC) [Entitic vol] 92.3 fL 81-99 [facility] Hematocrit Auto (Bld) [Volum e fraction]Ordered By: Renan Harrison on 10-22-2022 Hematocrit (Bld) [Volume fraction] 45.8 % 37-47 [facility] - Chemistry and C hemistry - challengeOrdered By: Renan Harrison 10-22-2022 ALP [Catalytic activity/Vol] 87 U/L 45-117 [facility] ALT [Catalytic activity/Vol] 36 U/L 13-56 [facility] CO2 [Moles/Vol] 27.0 mmol/L 21.0-32.0 [facility] Globulin (S) [Mass/Vol] 4.3 g/dL 2.2-4.2 [facility] Urea nitrogen/Creatinine [Mass ratio] 11.1 mg/mg 10-20 [facility] - Hematology and Cell countsOrdered By: Renan Harrison 10-22-2022 Erythrocyte distribution width (RBC) [Entitic vol] 45.7 fL 35.1-43.9 [facility] Erythrocyte distribution width (RBC) [Ratio] 13.5 % 11.6-14.6 [facility] Immature granulocytes/100 WBC (Bld) 0.300 % 0.0-0.9 [facility] Comment on above: IG% - Immature Granu locytes (promyelocytes, myelocytes and metamyelocytes) > 1% indicates that a LEFT SHIFT is Present. MCH (RBC) [Entitic mass] 30.4 pg 27.0-32.0 [facility] Nucleated RBC/100 WBC (Bld) [Ratio] 0 % 0-5 [facility] MCHC Auto (RBC) [Mass/Vol]Or dered By: Renan Harrison on 10-22-2022 MCHC (RBC) [Mass/Vol] 33.0 g/dL 32-36 [facility] No Panel InformationOrdered By: Renan Harrison on 10-22-2022 Estimated GFR (MDRD) Amer 72 mL/min >60 [facility] Comment on above: GFR Calc Estimated GFR (MDRD) Non-Af Amer 60 mL/min >60 [facility] Comment on above: Non- GFR Calc Thyroid Stimulating Hormone (TSH) 1.55 uIU/mL 0.358-3.74 [facility] Vitamin D 25-Hydroxy 56.6 ng/mL [facility] Comment on above: Vitamin D 25(OH) Sta tus Range Deficiency <20 ng/mL (50nmol/L) Insufficiency 20 - 30 ng/mL (50 - 75 nmol/L) Sufficiency 30 - 100 ng/mL (75 - 250 nmol/L) Toxicity >100 ng/mL (>250 nmol/L) Platelets bldOrdered By: Renan Harrison on 10-22-2022 Platelets (Bld) [#/Vol] 299 10*3/uL 150-450 [facility] Serum or plasma albumin jerry urement (mass/volume)Ordered By: Renan Harrison on 10-22-2022 Albumin [Mass/Vol] 3.7 g/dL 3.2-5.0 [facility] Serum or plasma albumin/glob ulin mass ratioOrdered By: Renan Harrison 10-22-2022 Albumin/Globulin [Mass ratio] 0.9 {ratio} 0.9-2.4 [facility] Serum or plasma calcium jerry urement (mass/volume)Ordered By: Renan Harrison on 10-22-2022 Calcium [Mass/Vol] 9.3 mg/dL 8.5-10.1 [facility] Serum or plasma creatinine m easurement (mass/volume)Ordered By: Renan Harrison 10-22-2022 Creatinine [Mass/Vol] 0.99 mg/dL 0.55-1.02 [facility] Comment on above: The validity of the calculated GFR & GFRAA in patients over 70 years has not been determined. Clinical correlation is essential. Serum or plasma urea nitroge n measurement (mass/volume)Ordered By: Renan Harrison on 10-22-2022 Urea nitrogen [Mass/Vol] 11 mg/dL 7-18 [facility] Thin prep Papanicolaou smear with manual screeningOrdered By: Renan Harrison on 10-22-2022 Thin prep Papanicolaou smear with manual screening 27 U/L 15-37 [facility] Thin prep Papanicolaou smear with manual screening 6 5-15 [facility] Bacteria identified Cx Nom ( Wound)Ordered By: Renan Harrison on 09-17-2022 Wound Culture Staphylococcus lugdunensis [facility] Gram stain for investigation of transfusion reactionOrdered By: Renan Harrison on 09-17-2022 Microscopic observation Gram stain Nom (Unsp spec) [facility] No Panel InformationOrdered By: Renan Harrison on 09-17-2022 Methicillin-Resist S.aureus DNA PCR Negative Negative [facility] Staphylococcus aureus DNA de tection by probe and target amplification methodOrdered By: Renan Harrison on 09-17-2022 S. aureus DNA PREETI+probe Ql (Unsp spec) Negative Negative [facility] Absolute lymphocyte countOrd ered By: Dr. Harrison on 07-18-2022 Lymphocytes Auto (Unsp spec) [#/Vol] 4.74 10*3/uL 0.83-4.51 [facility] Basophil percentageOrdered B y: Dr. Harrison on 07-18-2022 Basophils/100 WBC (Bld) 0.6 % 0-1 [facility] Bilirubin [Mass/Vol] 0.50 mg/dL 0.20-1.00 [facility] Comment on above: For patients on eltr ombopag therapy, use of Dimension [place] TBIL is not recommended. Chloride [Moles/Vol] 108 mmol/L 98-107 [facility] Eosinophils/100 WBC (Bld) 2.4 % 0-5 [facility] Glucose [Mass/Vol] 103 mg/dL 74-106 [facility] Comment on above: Fasting Glucose resu lt from 100 to 125 mg/dL suggests IMPAIRED HOMEOSTASIS per A.D.A. criteria. Neutrophils (Bld) [#/Vol] 5.0 10*3/uL 2.0-7.7 [facility] Neutrophils/100 WBC (Bld) 45.9 % 47-70 [facility] Potassium [Moles/Vol] 3.8 mmol/L 3.5-5.1 [facility] Protein [Mass/Vol] 7.8 g/dL 6.4-8.2 [facility] Sodium [Moles/Vol] 138 mmol/L 136-145 [facility] WBC (Bld) [#/Vol] 10.9 10*3/uL 4.4-11.0 [facility] Blood erythrocytes count (nu mber/volume)Ordered By: Dr. Harrison on 07-18-2022 RBC (Bld) [#/Vol] 5.02 10*6/uL 4.2-5.4 [facility] Blood hemoglobin measurement (mass/volume)Ordered By: Dr. Harrison on 07-18-2022 Hemoglobin (Bld) [Mass/Vol] 14.9 g/dL 12.0-15.0 [facility] Blood lymphocytes/100 leukoc ytesOrdered By: Dr. Harrison on 07-18-2022 Lymphocytes/100 WBC (Bld) 43.7 % 19-41 [facility] Blood monocytes/100 leukocyt esOrdered By: Dr. Harrison on 07-18-2022 Monocytes/100 WBC (Bld) 6.9 % 0-10 [facility] Blood platelet mean volumeOr dered By: Dr. Harrison on 07-18-2022 Platelet mean volume (Bld) [Entitic vol] 10.8 fL 6.2-12.0 [facility] Determination of erythrocyte mean corpuscular volume (MCV)Ordered By: Dr. Harrison on 07-18-2022 MCV (RBC) [Entitic vol] 92.4 fL 81-99 [facility] Hematocrit Auto (Bld) [Volum e fraction]Ordered By: Dr. Harrison on 07-18-2022 Hematocrit (Bld) [Volume fraction] 46.4 % 37-47 [facility] Laboratory - Chemistry and C hemistry - challengeOrdered By: Dr. Harrison on 07-18-2022 ALP [Catalytic activity/Vol] 81 U/L 45-117 [facility] ALT [Catalytic activity/Vol] 40 U/L 13-56 [facility] CO2 [Moles/Vol] 27.0 mmol/L 21.0-32.0 [facility] Globulin (S) [Mass/Vol] 4.2 g/dL 2.2-4.2 [facility] Urea nitrogen/Creatinine [Mass ratio] 15.0 mg/mg 10-20 [facility] Laboratory - Hematology and Cell countsOrdered By: Dr. Harrison on 07-18-2022 Erythrocyte distribution width (RBC) [Entitic vol] 44.6 fL 35.1-43.9 [facility] Erythrocyte distribution width (RBC) [Ratio] 13.1 % 11.6-14.6 [facility] Immature granulocytes/100 WBC (Bld) 0.500 % 0.0-0.9 [facility] Comment on above: IG% - Immature Granu locytes (promyelocytes, myelocytes and metamyelocytes) > 1% indicates that a LEFT SHIFT is Present. MCH (RBC) [Entitic mass] 29.7 pg 27.0-32.0 [facility] Nucleated RBC/100 WBC (Bld) [Ratio] 0 % 0-5 [facility] MCHC Auto (RBC) [Mass/Vol]Or dered By: Dr. Harrison on 07-18-2022 MCHC (RBC) [Mass/Vol] 32.1 g/dL 32-36 [facility] No Panel InformationOrdered By: Dr. Harrison on 07-18-2022 Estimated GFR (MDRD) Amer 92 mL/min >60 [facility] Comment on above: GFR Calc Estimated GFR (MDRD) Non-Af Amer 76 mL/min >60 [facility] Comment on above: Non- GFR Calc Thyroid Stimulating Hormone (TSH) 1.95 uIU/mL 0.358-3.74 [facility] Vitamin D 25-Hydroxy 58.8 ng/mL [facility] Comment on above: Vitamin D 25(OH) Sta tus Range Deficiency <20 ng/mL (50nmol/L) Insufficiency 20 - 30 ng/mL (50 - 75 nmol/L) Sufficiency 30 - 100 ng/mL (75 - 250 nmol/L) Toxicity >100 ng/mL (>250 nmol/L) Platelets bldOrdered By: Dr. Harrison on 07-18-2022 Platelets (Bld) [#/Vol] 271 10*3/uL 150-450 [facility] Serum or plasma albumin jerry urement (mass/volume)Ordered By: Dr. Harrison on 07-18-2022 Albumin [Mass/Vol] 3.6 g/dL 3.2-5.0 [facility] Serum or plasma albumin/glob ulin mass ratioOrdered By: Dr. Harrison on 07-18-2022 Albumin/Globulin [Mass ratio] 0.9 {ratio} 0.9-2.4 [facility] Serum or plasma calcium jerry urement (mass/volume)Ordered By: Dr. Harrison on 07-18-2022 Calcium [Mass/Vol] 9.0 mg/dL 8.5-10.1 [facility] Serum or plasma creatinine m easurement (mass/volume)Ordered By: Dr. Harrison on 07-18-2022 Creatinine [Mass/Vol] 0.80 mg/dL 0.55-1.02 [facility] Comment on above: The validity of the calculated GFR & GFRAA in patients over 70 years has not been determined. Clinical correlation is essential. Serum or plasma urea nitroge n measurement (mass/volume)Ordered By: Dr. Harrison on 07-18-2022 Urea nitrogen [Mass/Vol] 12 mg/dL 7-18 [facility] Thin prep Papanicolaou smear with manual screeningOrdered By: Dr. Harrison on 07-18-2022 Thin prep Papanicolaou smear with manual screening 28 U/L 15-37 [facility] Thin prep Papanicolaou smear with manual screening 3 5-15 [facility] Cult, Misc + smearon 023 Bacteria identified Cx Nom (Unsp spec) [facility] [address] [employer] Work Phone: [phone] LMPon 06-28-2022 Last menstrual period start date HYSTERECTOMY [facility] [address] [employer] Work Phone: [phone] MISCELLANEOUS CULT./SM.BACT. on 06-28-2022 MISCELLANEOUS CULT./SM.BACT. PATIENT: ELLIS WHELAN LOCATION[place] [facility] [place] [id number] : 57 AGE: SEX: F ORDERED BY: MARKY CABELLO SOURCE: WOUND/ABSCESS COLLECTED: 06/28/22 15:04 ANTIBIOTICS AT BEBO.: RECEIVED : 06/29/22 00:05 SITE: Wound/Abscess R E S U L T S GRAM STAIN FINAL 06/29/22 10:21 2+ GRANULOCYTES. 2+ GRAM (+) COCCI MISCELLANEOUS CULT./SM.BACT. FINAL 06/30/22 16:04 2+ AEROBIC MIXED BACTERIA AND 4+ ANAEROBIC MIXED BACTERIA INCLUDING BETA LACTAMASE POSITIVE ORGANISMS. Normal [facility] Comment on above: Performed By: #### [facility] #### [facility] [id number] 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 Vulvar abscess Culture of the abscess will be sent. Will treat with combination of Bactrim DS and Flagyl. Patient informed if she has recurrent abscesses that she should see a single end sewer for further evaluation. Appears she has abscess formation of the right lower abdomen and most likely abscess formation of the right breast. Follow-up in 4 months for annual exam Chief Complaint PT IS A NEW PT WHO WAS SEEN YEARS AGO, HERE TODAY FOR VAGINAL SORES ON HER VAGINAL AREA. STATES THEY ARE PAINFUL. HAS HAD IT FOR 2 MONTHS BUT THE PAIN IS GETTING WORSE. HAS NOTICED A SMALL BUMP ON HER RIGHT BREAST AND ABDOMEN. LMP: HYSTERECTOMY Active Problems Problems Labial abscess (616.4) (N76.4) Vulvar abscess (616.4) (N76.4) Past Medical History Problems History of mammogram (V15.89) (Z92.89) 11/05/2021 10/31/2020 12/02/2018 History of Menstruation Onset age 11 years History of Normal vaginal delivery (650) (O80) 04/05/1975; VAGINAL; FEMALE; 7LBS 01/15/1977- twins; VAGINAL; FEMALE; 3LBS 3OZ, FEMALE; 3LBS 4OZ History of Pap test, as part of routine gynecological examination (V76.2) (Z01.419) 11/19/2017: Negative Surgical History Problems History of Dilation and curettage 1967 History of Hysterectomy vaginal and RSO 1982 History of Tubal ligation bilateral 1976 Family History Mother Family history of diabetes mellitus (V18.0) (Z83.3) Family history of hypertension (V17.49) (Z82.49) Father Family history of hypertension (V17.49) (Z82.49) Sister Family history of diabetes mellitus (V18.0) (Z83.3) Social History Problems Current every day smoker (305.1) (F17.200) No alcohol use No illicit drug use Not currently sexually active Tobacco use (305.1) (Z72.0) Allergies Medication Penicillins Recorded By: Marichuy Marcial; 02/24/2020 4:08:02 PM Current Meds Medication NameInstruction Estrace 2 MG Oral Tablet Flaxseed Oil 1400 MG Oral Capsule Vitals Vital Signs Recorded: 28Jun2022 02:44PM [id number] Fuxqmuetf00 Height5 ft 1 in Fejdih613 lb BMI Mlyrqsmozo29.85 kg/m2 BSA Calculated1.71 LMPHYSTERECTOMY Physical Exam PHYSICAL EXAMINATION: Well-developed, well nourished, in no acute distress, alert and oriented x three, is pleasant and cooperative. HEENT: Clear. Pupils equal, round and reactive to light and accommodation. Extraocular muscles are intact. Oral mucosa pink without exudate. BREAST: Breasts are symmetric, no nipple discharge or retraction. There is noted what appears to be redness and of the skin of the right breast approximately 2 cm from the nipple at the 6 o'clock position which appears consistent with a localized skin infection. The lesion is approximately 1 cm in diameter. NECK: No lymphadenopathy, no thyromegaly. LUNGS: Clear bilaterally. HEART: Regular rate and rhythm without murmurs. ABDOMEN: Normoactive bowel sounds, soft and nontender, no guarding or rebound tenderness, no CVA tenderness. There appears to be an abscess formation near the right groin region. EXTREMITIES: No clubbing, cyanosis or edema. NEUROLOGIC: Cranial nerves II-XII grossly intact. : Normal external female genitalia. Noted 2 abscesses of the right vulvar area toward the crease with the thigh. These abscesses are draining and cultures were obtained. Signatures Electronically signed by : Marky Cabello MD; Jun 28 2022 3:15PM EST (Author) Normal [employer] Absolute lymphocyte countOrd ered By: Dr. Harrison on 04-18-2022 Lymphocytes Auto (Unsp spec) [#/Vol] 3.80 10*3/uL 0.83-4.51 [facility] Basophil percentageOrdered B y: Dr. Harrison on 04-18-2022 Basophils/100 WBC (Bld) 0.5 % 0-1 [facility] Bilirubin [Mass/Vol] 0.60 mg/dL 0.20-1.00 [facility] Comment on above: For patients on eltr ombopag therapy, use of Dimension [place] TBIL is not recommended. Chloride [Moles/Vol] 105 mmol/L 98-107 [facility] Eosinophils/100 WBC (Bld) 1.6 % 0-5 [facility] Glucose [Mass/Vol] 163 mg/dL 74-106 [facility] Comment on above: Fasting Glucose resu lt greater than or equal to 126 mg/dL suggests DIABETES MELLITUS per A.D.A. criteria. Neutrophils (Bld) [#/Vol] 5.1 10*3/uL 2.0-7.7 [facility] Neutrophils/100 WBC (Bld) 51.8 % 47-70 [facility] Potassium [Moles/Vol] 4.0 mmol/L 3.5-5.1 [facility] Protein [Mass/Vol] 7.8 g/dL 6.4-8.2 [facility] Sodium [Moles/Vol] 140 mmol/L 136-145 [facility] WBC (Bld) [#/Vol] 9.8 10*3/uL 4.4-11.0 [facility] Blood erythrocytes count (nu mber/volume)Ordered By: Dr. Harrison on 04-18-2022 RBC (Bld) [#/Vol] 5.35 10*6/uL 4.2-5.4 [facility] Blood hemoglobin measurement (mass/volume)Ordered By: Dr. Harrison on 04-18-2022 Hemoglobin (Bld) [Mass/Vol] 15.8 g/dL 12.0-15.0 [facility] Blood lymphocytes/100 leukoc ytesOrdered By: Dr. Harrison on 04-18-2022 Lymphocytes/100 WBC (Bld) 38.9 % 19-41 [facility] Blood monocytes/100 leukocyt esOrdered By: Dr. Harrison on 04-18-2022 Monocytes/100 WBC (Bld) 6.7 % 0-10 [facility] Blood platelet mean volumeOr dered By: Dr. Harrison on 04-18-2022 Platelet mean volume (Bld) [Entitic vol] 10.9 fL 6.2-12.0 [facility] Determination of erythrocyte mean corpuscular volume (MCV)Ordered By: Dr. Harrison on 04-18-2022 MCV (RBC) [Entitic vol] 90.7 fL 81-99 [facility] Hematocrit Auto (Bld) [Volum e fraction]Ordered By: Dr. Harrison on 04-18-2022 Hematocrit (Bld) [Volume fraction] 48.5 % 37-47 [facility] Laboratory - Chemistry and C hemistry - challengeOrdered By: Dr. Harrison on 04-18-2022 ALP [Catalytic activity/Vol] 85 U/L 45-117 [facility] ALT [Catalytic activity/Vol] 43 U/L 13-56 [facility] CO2 [Moles/Vol] 27.0 mmol/L 21.0-32.0 [facility] Globulin (S) [Mass/Vol] 4.2 g/dL 2.2-4.2 [facility] Urea nitrogen/Creatinine [Mass ratio] 11.5 mg/mg 10-20 [facility] Laboratory - Hematology and Cell countsOrdered By: Dr. Harrison on 04-18-2022 Erythrocyte distribution width (RBC) [Entitic vol] 41.1 fL 35.1-43.9 [facility] Erythrocyte distribution width (RBC) [Ratio] 12.5 % 11.6-14.6 [facility] Immature granulocytes/100 WBC (Bld) 0.500 % 0.0-0.9 [facility] Comment on above: IG% - Immature Granu locytes (promyelocytes, myelocytes and metamyelocytes) > 1% indicates that a LEFT SHIFT is Present. MCH (RBC) [Entitic mass] 29.5 pg 27.0-32.0 [facility] Nucleated RBC/100 WBC (Bld) [Ratio] 0 % 0-5 [facility] MCHC Auto (RBC) [Mass/Vol]Or dered By: Dr. Harrison on 04-18-2022 MCHC (RBC) [Mass/Vol] 32.6 g/dL 32-36 [facility] No Panel InformationOrdered By: Dr. Harrison on 04-18-2022 Estimated GFR (MDRD) Amer 84 mL/min >60 [facility] Comment on above: GFR Calc Estimated GFR (MDRD) Non-Af Amer 69 mL/min >60 [facility] Comment on above: Non- GFR Calc Thyroid Stimulating Hormone (TSH) 1.22 uIU/mL 0.358-3.74 [facility] Vitamin D 25-Hydroxy 54.6 ng/mL [facility] Comment on above: Vitamin D 25(OH) Sta tus Range Deficiency <20 ng/mL (50nmol/L) Insufficiency 20 - 30 ng/mL (50 - 75 nmol/L) Sufficiency 30 - 100 ng/mL (75 - 250 nmol/L) Toxicity >100 ng/mL (>250 nmol/L) Platelets bldOrdered By: Dr. Harrison on 04-18-2022 Platelets (Bld) [#/Vol] 264 10*3/uL 150-450 [facility] Serum or plasma albumin jerry urement (mass/volume)Ordered By: Dr. Harrison on 04-18-2022 Albumin [Mass/Vol] 3.6 g/dL 3.2-5.0 [facility] Serum or plasma albumin/glob ulin mass ratioOrdered By: Dr. Harrison on 04-18-2022 Albumin/Globulin [Mass ratio] 0.9 {ratio} 0.9-2.4 [facility] Serum or plasma calcium jerry urement (mass/volume)Ordered By: Dr. Harrison on 04-18-2022 Calcium [Mass/Vol] 9.2 mg/dL 8.5-10.1 [facility] Serum or plasma creatinine m easurement (mass/volume)Ordered By: Dr. Harrison on 04-18-2022 Creatinine [Mass/Vol] 0.87 mg/dL 0.55-1.02 [facility] Comment on above: The validity of the calculated GFR & GFRAA in patients over 70 years has not been determined. Clinical correlation is essential. Serum or plasma urea nitroge n measurement (mass/volume)Ordered By: Dr. Harrison on 04-18-2022 Urea nitrogen [Mass/Vol] 10 mg/dL 7-18 [facility] Thin prep Papanicolaou smear with manual screeningOrdered By: Dr. Harrison on 04-18-2022 Thin prep Papanicolaou smear with manual screening 38 U/L 15-37 [facility] Thin prep Papanicolaou smear with manual screening 8 5-15 [facility] Anaerobic cultureOrdered By: Dr. Harrison on 02-05-2022 Bacteria identified Anaer cx Nom (Unsp spec) No anaerobic bacteria isolated. [facility] Bacteria identified Cx Nom ( Wound)Ordered By: Dr. Harrison on 02-01-2022 Wound Culture Staphylococcus lugdunensis [facility] Gram stain for investigation of transfusion reactionOrdered By: Dr. Harrison on 01-31-2022 Microscopic observation Gram stain Nom (Unsp spec) [facility] No Panel InformationOrdered By: Dr. Harrison on 01-30-2022 Methicillin-Resist S.aureus DNA PCR Negative Negative [facility] Staphylococcus aureus DNA de tection by probe and target amplification methodOrdered By: Dr. Harrison on 01-30-2022 S. aureus DNA PREETI+probe Ql (Unsp spec) Negative Negative [facility] No Panel Informationon 12-19 Endomysial IgA Antibody Negative Negative [facility] Work Phone: Serum IgA measurement (units /volume)on 12-19-2021 IgA Qn (S) 200 mg/dL 87-352 [facility] Work Phone: Comment on above: Performed at: [address] [id number] Director: Soren Mercer PhD, Phone: [phone] Serum or plasma C reactive p rotein measurement (mass/volume)on 12-19-2021 CRP [Mass/Vol] 5.64 mg/L 0.0-3.0 [facility] Work Phone: [phone] Comment on above: C-Reactive Protein ( CRP) provides useful information for thediagnosis, therapy and monitoring of inflammatory processesand associated diseases. For the evaluation of Relative Riskfor Cardiovascular Disease, a High Sensitivity CRP (HSCRP)should be ordered. Serum tissue transglutaminas e IgA antibody assay (units/volume)on 12-19-2021 tTG IgA Qn (S) <2 U/mL 0-3 [facility] Work Phone: [phone] Comment on above: Negative 0 - 3 Weak Positive 4 - 10 Positive >10 Tissue Transglutaminase (tTG) has been identified as the endomysial antigen. Studies have demonstr- ated that endomysial IgA antibodies have over 99% specificity for gluten sensitive enteropathy. Absolute lymphocyte counton 11-13-2021 Lymphocytes Auto (Unsp spec) [#/Vol] 5.19 10*3/uL 0.83-4.51 [facility] Work Phone: [phone] Basophil percentageon 2021 Basophils/100 WBC (Bld) 0.5 % 0-1 [facility] Work Phone: [phone] Eosinophils/100 WBC (Bld) 1.9 % 0-5 [facility] Work Phone: [phone] Neutrophils (Bld) [#/Vol] 5.8 10*3/uL 2.0-7.7 [facility] Work Phone: [phone] Neutrophils/100 WBC (Bld) 47.6 % 47-70 [facility] Work Phone: [phone] WBC (Bld) [#/Vol] 12.2 10*3/uL 4.4-11.0 [facility] Work Phone: [phone] Blood erythrocytes count (nu mber/volume)on 11-13-2021 RBC (Bld) [#/Vol] 5.17 10*6/uL 4.2-5.4 [facility] Work Phone: [phone] Blood hemoglobin measurement (mass/volume)on 11-13-2021 Hemoglobin (Bld) [Mass/Vol] 15.7 g/dL 12.0-15.0 [facility] Work Phone: [phone] Blood lymphocytes/100 leukoc yteson 11-13-2021 Lymphocytes/100 WBC (Bld) 42.5 % 19-41 [facility] Work Phone: [phone] Blood monocytes/100 leukocyt eson 11-13-2021 Monocytes/100 WBC (Bld) 7.3 % 0-10 [facility] Work Phone: [phone] Blood platelet mean volumeon 11-13-2021 Platelet mean volume (Bld) [Entitic vol] 9.9 fL 6.2-12.0 [facility] Work Phone: [phone] Determination of erythrocyte mean corpuscular volume (MCV)on 11-13-2021 MCV (RBC) [Entitic vol] 90.3 fL 81-99 [facility] Work Phone: [phone] Hematocrit Auto (Bld) [Volum e fraction]on 11-13-2021 Hematocrit (Bld) [Volume fraction] 46.7 % 37-47 [facility] Work Phone: [phone] Laboratory - Hematology and Cell countson 11-13-2021 Erythrocyte distribution width (RBC) [Entitic vol] 42.6 fL 35.1-43.9 [facility] Work Phone: [phone] Erythrocyte distribution width (RBC) [Ratio] 12.8 % 11.6-14.6 [facility] Work Phone: [phone] Immature granulocytes/100 WBC (Bld) 0.200 % 0.0-0.9 [facility] Work Phone: [phone] Comment on above: IG% - Immature Granu locytes (promyelocytes, myelocytes and metamyelocytes) > 1% indicates that a LEFT SHIFT is Present. MCH (RBC) [Entitic mass] 30.4 pg 27.0-32.0 [facility] Work Phone: [phone] Nucleated RBC/100 WBC (Bld) [Ratio] 0 % 0-5 [facility] Work Phone: MCHC Auto (RBC) [Mass/Vol]on 11-13-2021 MCHC (RBC) [Mass/Vol] 33.6 g/dL 32-36 [facility] Work Phone: Platelets bldon 11-13-2021 Platelets (Bld) [#/Vol] 254 10*3/uL 150-450 [facility] Work Phone: DIGITAL MAMM SCREENING W/ TO Wood 11-05-2021 DIGITAL MAMM SCREENING W/ JENI Patient Name: ELLIS WHELAN STUDY: DIGITAL MAMM SCREENING W/ JENI; 11/05/2021 3:17 pm ACCESSION NUMBER(S): [id number] ORDERING CLINICIAN: CASSI SAHA INDICATION: Screening. COMPARISON: 12/02/2018, 10/31/2020 FINDINGS: 2D and tomosynthesis images were reviewed at 1 mm slice thickness. The breast tissue is almost entirely fatty. No suspicious masses or calcifications are identified. CAD was utilized. IMPRESSION: No mammographic evidence of malignancy. BI-RADS CATEGORY: Category: 1 - Negative. Recommendation: 1 Year Screening. For any future breast imaging appointments, please call [phone] Electronically signed by: BILLY MILLAN MD [facility] Absolute lymphocyte counton 10-18-2021 Lymphocytes Auto (Unsp spec) [#/Vol] 3.59 10*3/uL 0.83-4.51 [facility] Work Phone: Basophil percentageon 2021 Basophils/100 WBC (Bld) 0.5 % 0-1 [facility] Work Phone: Bilirubin [Mass/Vol] 0.50 mg/dL 0.20-1.00 [facility] Work Phone: Comment on above: For patients on eltr ombopag therapy, use of Dimension [place] TBIL is not recommended. Chloride [Moles/Vol] 104 mmol/L 98-107 [facility] Work Phone: Eosinophils/100 WBC (Bld) 2.3 % 0-5 [facility] Work Phone: Glucose [Mass/Vol] 102 mg/dL 74-106 [facility] Work Phone: Comment on above: Fasting Glucose resu lt from 100 to 125 mg/dL suggests IMPAIRED HOMEOSTASIS per A.D.A. criteria. Neutrophils (Bld) [#/Vol] 5.1 10*3/uL 2.0-7.7 [facility] [facility] Work Phone: Neutrophils/100 WBC (Bld) 51.8 % 47-70 [facility] Work Phone: Potassium [Moles/Vol] 4.2 mmol/L 3.5-5.1 [facility] Work Phone: Protein [Mass/Vol] 8.0 g/dL 6.4-8.2 [facility] Work Phone: Sodium [Moles/Vol] 138 mmol/L 136-145 [facility] Work Phone: WBC (Bld) [#/Vol] 9.8 10*3/uL 4.4-11.0 [facility] Work Phone: Blood erythrocytes count (nu mber/volume)on 10-18-2021 RBC (Bld) [#/Vol] 5.51 10*6/uL 4.2-5.4 [facility] Work Phone: Blood hemoglobin measurement (mass/volume)on 10-18-2021 Hemoglobin (Bld) [Mass/Vol] 17.0 g/dL 12.0-15.0 [facility] Work Phone: Blood lymphocytes/100 leukoc yteson 10-18-2021 Lymphocytes/100 WBC (Bld) 36.7 % 19-41 [facility] Work Phone: Blood monocytes/100 leukocyt eson 10-18-2021 Monocytes/100 WBC (Bld) 8.5 % 0-10 [facility] Work Phone: Blood platelet mean volumeon 10-18-2021 Platelet mean volume (Bld) [Entitic vol] 10.7 fL 6.2-12.0 [facility] Work Phone: [phone] Determination of erythrocyte mean corpuscular volume (MCV)on 10-18-2021 MCV (RBC) [Entitic vol] 91.8 fL 81-99 [facility] Work Phone: [phone] Hematocrit Auto (Bld) [Volum e fraction]on 10-18-2021 Hematocrit (Bld) [Volume fraction] 50.6 % 37-47 [facility] Work Phone: [phone] Laboratory - Chemistry and C hemistry - challengeon 10-18-2021 ALP [Catalytic activity/Vol] 76 U/L 45-117 [facility] Work Phone: [phone] ALT [Catalytic activity/Vol] 45 U/L 13-56 [facility] Work Phone: [phone] CO2 [Moles/Vol] 27.0 mmol/L 21.0-32.0 [facility] Work Phone: [phone] Globulin (S) [Mass/Vol] 4.2 g/dL 2.2-4.2 [facility] Work Phone: [phone] Urea nitrogen/Creatinine [Mass ratio] 14.5 mg/mg 10-20 [facility] Work Phone: [phone] Laboratory - Hematology and Cell countson 10-18-2021 Erythrocyte distribution width (RBC) [Entitic vol] 43.8 fL 35.1-43.9 [facility] Work Phone: [phone] Erythrocyte distribution width (RBC) [Ratio] 12.9 % 11.6-14.6 [facility] Work Phone: [phone] Immature granulocytes/100 WBC (Bld) 0.200 % 0.0-0.9 [facility] Work Phone: [phone] Comment on above: IG% - Immature Granu locytes (promyelocytes, myelocytes and metamyelocytes) > 1% indicates that a LEFT SHIFT is Present. MCH (RBC) [Entitic mass] 30.9 pg 27.0-32.0 [facility] Work Phone: Nucleated RBC/100 WBC (Bld) [Ratio] 0 % 0-5 [facility] Work Phone: MCHC Auto (RBC) [Mass/Vol]on 10-18-2021 MCHC (RBC) [Mass/Vol] 33.6 g/dL 32-36 [facility] Work Phone: No Panel Informationon 10-18 Estimated GFR (MDRD) Amer 81 mL/min >60 [facility] Work Phone: Comment on above: GFR Calc Estimated GFR (MDRD) Non-Af Amer 67 mL/min >60 [facility] Work Phone: Comment on above: Non- GFR Calc Thyroid Stimulating Hormone (TSH) 2.47 uIU/mL 0.358-3.74 [facility] Work Phone: Vitamin D 25-Hydroxy 65.2 ng/mL [facility] Work Phone: Comment on above: Vitamin D 25(OH) Sta tus Range Deficiency <20 ng/mL (50nmol/L) Insufficiency 20 - 30 ng/mL (50 - 75 nmol/L) Sufficiency 30 - 100 ng/mL (75 - 250 nmol/L) Toxicity >100 ng/mL (>250 nmol/L) Platelets bldon 10-18-2021 Platelets (Bld) [#/Vol] 261 10*3/uL 150-450 [facility] Work Phone: [phone] Serum or plasma albumin jerry urement (mass/volume)on 10-18-2021 Albumin [Mass/Vol] 3.8 g/dL 3.2-5.0 [facility] Work Phone: [phone] Serum or plasma albumin/glob ulin mass ratioon 10-18-2021 Albumin/Globulin [Mass ratio] 0.9 {ratio} 0.9-2.4 [facility] Work Phone: [phone] Serum or plasma calcium jerry urement (mass/volume)on 10-18-2021 Calcium [Mass/Vol] 9.4 mg/dL 8.5-10.1 [facility] Work Phone: Serum or plasma creatinine m easurement (mass/volume)on 10-18-2021 Creatinine [Mass/Vol] 0.90 mg/dL 0.55-1.02 [facility] Work Phone: Comment on above: The validity of the calculated GFR & GFRAA in patients over 70 years has not been determined. Clinical correlation is essential. Serum or plasma urea nitroge n measurement (mass/volume)on 10-18-2021 Urea nitrogen [Mass/Vol] 13 mg/dL 7-18 [facility] Work Phone: Thin prep Papanicolaou smear with manual screeningon 10-18-2021 Thin prep Papanicolaou smear with manual screening 39 U/L 15-37 [facility] Work Phone: Thin prep Papanicolaou smear with manual screening 7 5-15 [facility] Work Phone: MA Mamm Screen w/CAD if perf ormed bilaton 12-03-2018 MA Mamm Screen w/CAD if performed bilat Exam Date/Time: 12/02/2018 11:28 EDT Reason for Exam: SCREENING;Screening Report STUDY: Digital mammography screening; 12/02/2018 11:28 am ACCESSION NUMBER(S): [id number] ORDERING CLINICIAN: Marky Cabello INDICATION: Screening. COMPARISON: Comparison is made to prior digital mammograms dated 11/25/2017 and 05/03/2015 FINDINGS: CC and MLO 2D digital mammographic images of the bilateral breasts were obtained. The breast tissue is almost entirely fatty. No discrete mass or focal asymmetry is identified. No suspicious microcalcifications or foci of architectural distortion are seen. There has been no significant change. This study was interpreted with CAD. IMPRESSION: No mammographic evidence of malignancy. BI-RADS CATEGORY: Category: 1 - Negative. Recommendation: Normal Interval Follow-up, Over Age 40. Recall Interval: 12 Months. Breast Density: Fatty. FINAL REPORT Dictated: 12/03/2018 8:35 am Amandeep COLLADO, Nick Robin Signed (Electronic Signature): 12/03/2018 8:35 am Signed by: Amandeep COLLADO, Nick Robin Technologist: FELIX Assessment: BI-RADS Category 1-Negative Recommendation: Normal interval follow-up Normal [facility] Pathology ([facility])on 11-19-2017 Pathology ([facility]) FINAL GYNECOLOGIC CYTOLOGY [id number] ADEQUACYSatisfactory for EvaluationEndocervical component absent but acceptable due to patient age/historyGENERAL CATEGORIZATIONNegative for Intraepithelial Lesion or MalignancyCLINICAL HISTORYHysterectomySPECIM EN(A) SCREENING VAGINAL THIN PREP VIALPerformed at [facility], [address] [place] [id number] by: Signed Out 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 Reported: 11/25/2017 Normal [facility] Healthcare Comment on above: Performed By: #### G YN ####[facility] [id number] [place] [address] Erythrocyte distribution wid th standard deviationon 11-03-2017 Erythrocyte distribution width (RBC) [Entitic vol] 43.9 fL 35.1-43.9 [facility] Work Phone: Erythrocyte sedimentation ra jaden 11-03-2017 ESR (Bld) [Velocity] 25 mm/h 0-30 [facility] Work Phone: Laboratory - Hematology and Cell countson 11-03-2017 Erythrocyte distribution width (RBC) [Ratio] 13.2 % 11.6-14.6 [facility] Work Phone: Serum or plasma erythropoiet in (EPO) measurement (units/volume)on 11-03-2017 Erythropoietin (EPO) Qn 15.1 mIU/mL 2.6-18.5 [facility] Work Phone: Comment on above: D[employer]ko Sam[employer] el DxI 800 Immunoassay SystemPerformed at: [employer] [address] [id number] Director: Soren Mercer PhD, Phone: [phone] Total cell counton 8 Cells counted [employer] (Bld/Tiss) [#] Not Reportable [facility] Work Phone: Otheron 08-30-2011 CONVERTED CLINICAL HISTORY OPERATIVE PROCEDURE: Exploratory laparotomy, cytologic washing, BSO, tumor reductive surgery CLINICAL INFORMATION: Complex left ovarian mass [facility] CONVERTED FINAL DIAGNOSIS FINAL DIAGNOSIS: A) LEFT OVARY AND FALLOPIAN TUBE, RESECTION - OVARIAN FIBROMA. BENIGN PARATUBAL CYST. UNREMARKABLE TUBE. B) RIGHT FALLOPIAN TUBE, RESECTION - UNREMARKABLE TUBE SPECIMEN: (A) OVARY AND TUBE, LEFT (B) TUBE, RIGHT [facility] CONVERTED GROSS DESCRIPTION GROSS DESCRIPTION: A) Lt tube & ovary FS Container labeled left tube and ovary. Received fresh for frozen section is a firm, intact, lobulated grayish-white ovary weighing 94 gm and measuring 6.5 x 5.2 x 5.0 cm. On cut section, the ovarian tissue is dense, white with a whorled configuration. [employer] sample submitted for frozen section. The fallopian tube with fimbriated end has the appearance of a previous partial salpingectomy. The portion of tube measures 3 x 1 cm. Attached to the tube is a paratubal cyst filled with clear fluid measuring 1 cm in diameter. The cyst lining is smooth and glistening. Additional samples of the ovary are submitted in cassettes 1-7; sample of fallopian tube and paratubal cyst submitted in cassette 8. B) Rt fallopian tube Container labeled right fallopian tube. Received is a portion of fallopian tube with fimbriated ends measuring 3 x 0.9 cm. The tube has the appearance of a previous partial salpingectomy. Attached to the tube are several clear fluid-filled cysts, the largest measuring 0.8 cm in diameter. The cyst linings are smooth and glistening. [employer] sample submitted in cassette B. SMS:[facility] MICROSCOPIC DESCRIPTION: Slides reviewed. SDS/gpl [facility] CONVERTED INTRAOP DIAGNOSIS INTRAOPERATIVE CONSULTATION: Frozen Section Diagnosis: Left ovary - Fibroma. ([facility]) [facility] CONVERTED ORDERING PROVIDER Ordering Provider: TJ CASTRO [facility] Thyroidon 08-30-2011 TSH Qn CLAUDINE JADE M.D., PATHOLOGIST (Electronic signature on file) Final Signed Out: 08/30/2011 16:05 [facility] TSH Qn Done By: CLAUDINE BAR M.D., PATHOLOGIST [facility] Otheron 08-29-2011 CONVERTED CLINICAL HISTORY CLINICAL INFORMATION [facility] CONVERTED ELECTRONIC SIGNATURE MILADYS DENG M.D. (Electronic signature on file) Final Signed Out: 08/29/2011 15:38 [facility] CONVERTED FINAL DIAGNOSIS DIAGNOSIS PELVIC WASHING - NO MALIGNANT CELLS IDENTIFIED. NARRATIVE MESOTHELIAL CELLS, HISTIOCYTES. [facility] CONVERTED GROSS DESCRIPTION SPECIMEN: A) PEC, PELVIC WASHING W/CELL BLOCK Description: Materials Prepared & Examined: Volume: ......... 10 # of Cell Blocks: .......... 1 Color: ............ Sara # of Monolayers: .......... 1 Clotted: ........... Y # of Smear slides: ......... 1 # of Slides: ................. 4 [facility] CONVERTED ORDERING PROVIDER Ordering Provider: TJ CASTRO [facility] CONVERTED PROCEDURE PROCEDURE: [facility] Bacteria identified Anaer cx Nom (Unsp spec) Anaerobic microbial culture No anaerobic bacteria isolated. [facility] Work Phone: Bacteria identified Cx Nom ( Wound) Wound Culture Staphylococcus lugdunensis [facility] Work Phone: Gram stain for investigation of transfusion reaction Microscopic observation Gram stain Nom (Unsp spec) [facility] Work Phone: Vital Signs Date Time Vital Sign Value Performing Clinician Facility 02-05-2024 13:16-0500 Body height 154.9 cm [facility] 02-05-2024 13:16-0500 Body mass index (BMI) [Ratio] 29.63 kg/m2 [facility] 02-05-2024 13:16-0500 Body weight 71.12 kg [facility] 12-31-2022 10:19-0400 Body height 154.9 cm Marky Cabello MD Work Phone: [facility] 12-31-2022 10:19-0400 Body mass index (BMI) [Ratio] 29.63 kg/m2 Marky Cabello MD Work Phone: [facility] 12-31-2022 10:19-0400 Body weight 71.12 kg Marky Cabello MD Work Phone: [facility] 12-31-2022 10:19-0400 Diastolic blood pressure 72 mm[Hg] Marky Cabello MD Work Phone: [facility] 12-31-2022 10:19-0400 Systolic blood pressure 132 mm[Hg] Marky Cabello MD Work Phone: [facility] 09-25-2022 14:18-0400 Body height 154.[address] Renan Harrison Work Phone: [facility] 09-25-2022 14:18-0400 Body mass index (BMI) [Ratio] 29.7 kg/m2 Dr. Renan Harrison Work Phone: [facility] 09-25-2022 14:18-0400 Body temperature 98.2 [degF] Dr. Renan Harrison Work Phone: [facility] 09-25-2022 14:18-0400 Body weight 71.[address] Renan Harrison Work Phone: [facility] 09-25-2022 14:18-0400 Diastolic blood pressure 76 mm[Hg] Dr. Renan Harrison Work Phone: [facility] 09-25-2022 14:18-0400 Heart rate 96 /min Dr. Renan Harrison Work Phone: [facility] 09-25-2022 14:18-0400 Respiratory rate 17 /min Dr. Renan Harrison Work Phone: [facility] 09-25-2022 14:18-0400 SaO2% (BldA) [Mass fraction] 95 % Dr. Renan Harrison Work Phone: [facility] 09-25-2022 14:18-0400 Systolic blood pressure 172 mm[Hg] Dr. Renan Harrison Work Phone: [facility] 06-28-2022 14:44-0400 Body height 154.94 cm Dejan Harrison Work Phone: [address] Work Phone: 06-28-2022 14:44-0400 Body mass index (BMI) [Ratio] 29.85 kg/m2 [employer] Work Phone: [place] [address] [employer] Work Phone: 06-28-2022 14:44-0400 Body surface area Derived from formula 1.71 m2 [employer] Work Phone: [place] [address] [employer] Work Phone: 06-28-2022 14:44-0400 Body weight 71.67 kg [employer] Work Phone: [address] Work Phone: 06-28-2022 14:44-0400 Diastolic blood pressure 80 mm[Hg] [employer] Work Phone: [address] Work Phone: 06-28-2022 14:44-0400 Systolic blood pressure 140 mm[Hg] [employer] Work Phone: [address] Work Phone: 12-11-2021 12:29-0400 Body height 154.[address] Renan Harrison Work Phone: [facility] Work Phone: 12-11-2021 12:29-0400 Body mass index (BMI) [Ratio] 30.4 kg/m2 Dr. Renan Harrison Work Phone: [facility] Work Phone: 12-11-2021 12:29-0400 Body temperature 98.4 [degF] Dr. Renan Harrison Work Phone: [facility] Work Phone: 12-11-2021 12:29-0400 Body weight 73.[address] Renan Harrison Work Phone: [facility] Work Phone: 12-11-2021 12:29-0400 Diastolic blood pressure 78 mm[Hg] Dr. Renan Harrison Work Phone: [facility] Work Phone: 12-11-2021 12:29-0400 Heart rate 84 /min Dr. Renan Harrison Work Phone: [facility] Work Phone: 12-11-2021 12:29-0400 Respiratory rate 16 /min Dr. Renan Harrison Work Phone: [facility] Work Phone: 12-11-2021 12:29-0400 SaO2% (BldA) [Mass fraction] 97 % Dr. Renan Harrison Work Phone: [facility] Work Phone: 12-11-2021 12:29-0400 Systolic blood pressure 127 mm[Hg] Dr. Renan Harrison Work Phone: [facility] Work Phone: 11-13-2021 14:18-0400 Body mass index (BMI) [Ratio] 30.2 kg/m2 Dr. Renan Harrison Work Phone: [facility] Work Phone: 11-13-2021 14:18-0400 Body temperature 97.9 [degF] Dr. Renan Harrison Work Phone: [facility] Work Phone: 11-13-2021 14:18-0400 Body weight 72.[address] Renan Harrison Work Phone: [facility] Work Phone: 11-13-2021 14:18-0400 Diastolic blood pressure 83 mm[Hg] Dr. Renan Harrison Work Phone: [facility] Work Phone: 11-13-2021 14:18-0400 Heart rate 82 /min Dr. Renan Harrison Work Phone: [facility] Work Phone: 11-13-2021 14:18-0400 Respiratory rate 16 /min Dr. Renan Harrison Work Phone: [facility] Work Phone: 11-13-2021 14:18-0400 SaO2% (BldA) [Mass fraction] 95 % Dr. Renan Harrison Work Phone: [facility] Work Phone: 11-13-2021 14:18-0400 Systolic blood pressure 153 mm[Hg] Dr. Renan Harrison Work Phone: [facility] Work Phone: 11-17-2018 14:13-0400 Body mass index (BMI) [Ratio] 30.8 kg/m2 Dr. Renan Harrison Work Phone: [facility] Work Phone: 11-17-2018 14:13-0400 Body temperature 97.8 [degF] Dr. Renan Harrison Work Phone: [facility] Work Phone: 11-17-2018 14:13-0400 Body weight 73.[address] Renan Harrison Work Phone: [facility] Work Phone: 11-17-2018 14:13-0400 Diastolic blood pressure 83 mm[Hg] Dr. Renan Harrison Work Phone: [facility] Work Phone: 11-17-2018 14:13-0400 Heart rate 78 /min Dr. Renan Harrison Work Phone: [facility] Work Phone: 11-17-2018 14:13-0400 Respiratory rate 16 /min Dr. Renan Harrison Work Phone: [facility] Work Phone: 11-17-2018 14:13-0400 SaO2% (BldA) [Mass fraction] 97 % Dr. Renan Harrison Work Phone: [facility] Work Phone: 11-17-2018 14:13-0400 Systolic blood pressure 163 mm[Hg] Dr. Renan Harrison Work Phone: [facility] Work Phone: Encounters Encounter Date Encounter Type Care Provider Facility Start: 04-26-2024 End: 04-26-2024 ambulatory Renan Zach Hunter Facility:[facility] Start: 02-05-2024 End: 02-05-2024 Subsequent hospital visit by physician Yazan Pritchard [facility] Comment on above: Encounter for screen ing mammogram for malignant neoplasm of breast Start: 02-05-2024 End: 02-05-2024 ambulatory MARKY CABELLO [facility] Start: 10-27-2023 End: 10-27-2023 ambulatory [facility] Hunter Facility:[facility] Start: 03-31-2023 End: 03-31-2023 ambulatory [facility] Work Phone: Start: 03-31-2023 End: 03-31-2023 Patient encounter procedure [facility] 3rd Flr Start: 12-31-2022 End: 12-31-2022 ambulatory MARKY CABELLO [facility] Start: 12-31-2022 End: 12-31-2022 Manual pelvic examination Marky Cabello MD Work Phone: [facility] Start: 12-31-2022 End: 12-31-2022 Patient encounter procedure Marky Cabello MD Work Phone: [facility] Comment on above: Encounter for Papani colaou smear for cervical cancer screening (Primary Dx); Encounter for screening mammogram for breast cancer Start: 10-22-2022 End: 10-22-[address] Renan Harrison Work Phone: [facility] Work Phone: Start: 10-22-2022 End: 10-22-[address] Renan Harrison Work Phone: [facility] 3rd Flr Start: 10-10-2022 End: 10-10-[address] Renan Harrison Work Phone: [facility] Work Phone: Start: 10-03-2022 End: 10-03-[address] Renan Harrison Work Phone: [facility] Work Phone: Start: 09-26-2022 End: 09-26-[address] Renan Harrison Work Phone: [facility] Work Phone: Start: 09-25-2022 End: 09-25-[address] Renan Harrison Work Phone: [facility] Work Phone: Start: 09-25-2022 End: 09-25-[address] [facility] Start: 09-25-2022 End: 09-25-[address] Renan Harrison Work Phone: [facility] Work Phone: Start: 09-17-2022 End: 09-17-2022 ambulatory [facility] Work Phone: Start: 09-17-2022 End: 09-17-2022 Patient encounter procedure [facility] Work Phone: Start: 07-18-2022 End: 07-18-2022 ambulatory [facility] Work Phone: Start: 07-18-2022 End: 07-18-2022 Patient encounter procedure [facility] 3rd Flr Start: 07-01-2022 Chart Update Dejan Harrison Work Phone: [address] Work Phone: Start: 06-28-2022 Office outpatient ne w 45 minutes Dejan Harrison Work Phone: [address] Work Phone: Start: 06-28-2022 ambulatory MARKY MANAN Facility:[id number] Start: 04-18-2022 End: 04-18-2022 ambulatory [facility] Work Phone: Start: 04-18-2022 End: 04-18-2022 Patient encounter procedure [facility] Office 3rd Flr Start: 01-30-2022 End: 01-30-[address] Renan Harrison Work Phone: [facility] Work Phone: Start: 01-30-2022 End: 01-30-[address] Renan Harrison Work Phone: [facility] Spec[facility] Start: 12-19-2021 End: 12-19-[address] Renan Harrison Work Phone: [facility] Work Phone: Start: 12-19-2021 End: 12-19-[address] Renan Harrison Work Phone: [facility] Start: 12-11-2021 End: 12-11-[address] Renan Harrison Work Phone: [facility] Start: 11-13-[address] Renan guevara Work Phone: [facility] Start: 11-13-2021 End: 11-13-[address] Renan Harrison Work Phone: [facility] Start: 10-18-2021 End: 10-18-2021 Patient encounter procedure [facility], y Office 3rd Flr Start: 08-28-2011 End: 08-28-2011 Patient encounter procedure Tj Castro Work Phone: [facility] Start: 08-28-2011 Results Only Tj Bourne on Work Phone: [facility] Encounter for gynecological examination (general) (routine) without abnormal findings KalynZach Hunter Work Phone: [address] Work Phone: Comment on above: 11/19/2017: Negative ; Procedures Date Procedure Procedure Detail Performing Clinician Start: 02-05-2024 End: 02-05-2024 Screening digital breast tomosynthesis bi Marky Cabello MD Work Phone: Start: 12-31-2022 GYNECOLOGIC CYTOLOGY CONSULTATION MARKY CABELLO Start: 09-17-2022 Investigation of transfusion reaction Start: 09-17-2022 Microbial culture, routine Start: 12-11-[address] Renan reis Work Phone: Start: 11-05-2021 Mammography Marky roberts MD Work Phone: Start: 08-28-2011 CONVERTED CYTOLOGY NON-RESIDENTIAL RECYCLE DRIVER Tj Castro Work Phone: Start: 08-28-2011 CONVERTED SURGICAL PATHOLOGY Tj Castro Work Phone: Anaerobic microbial culture Dr. Renan Harrison Work Phone: Anaerobic microbial culture Bilateral tubal ligation Renan Harrison Work Phone: Comment on above: 1976; Dilation and curettage Lawanda Harrison Work Phone: Comment on above: 1966; Hysterectomy vaginal Dejan Harrison Work Phone: Comment on above: and RSO 1981; Investigation of transfusion reaction Dr. Renan Harrison Work Phone: Investigation of transfusion reaction Microbial culture, routine D franky Harrison Work Phone: Microbial culture, routine Plan of Treatment Date Care Activity Detail Author Start: 2031 RSV High Risk: (Elde rly (60+) or Population) (1 - 1-dose 75+ series) RSV High Risk: (Elderly (60+) or Population) (1 - 1-dose 75+ series) [facility] Start: 02-04-2025 Screening for malign ant neoplasm of breast Mammogram [facility] Start: 11-23-2023 COVID-19 Vaccine ( season) COVID-19 Vaccine ( season) [facility] Start: 11-23-2023 Influenza vaccination Influenza Vacc ine (#1) [facility] Start: 10-23-2023 Pneumococcal Vaccine : 65+ Years (2 of 2 - PCV) Pneumococcal Vaccine: 65+ Years (2 of 2 - PCV) [facility] Start: 01-09-2023 End: 01-09-2023 Professional / ancillary services management 01/09/2023 10:00 AM EDT Ancillary Procedure [facility] [address] [facility] [address] [place] [id number] [facility] Start: 12-31-2022 End: 03-02-2024 DBT Breast - bilateral BI mammo bilateral screening tomosynthesis Imaging Routine Encounter for screening mammogram for breast cancer Expected: 12/31/2022, Expires: 03/02/2024 [facility] Service Area Work Phone: Comment on above: Expected: 12/31/2022 , Expires: 03/02/2024 Start: 12-31-2022 Patient encounter procedure ANNUAL, Provider: Marky Cabello, Status: Pen, Time: 10:[address] Work Phone: Start: 11-22-2022 Influenza vaccination Influenza Vacc ine (#1) [facility] Start: 11-05-2022 Screening for malign ant neoplasm of breast Mammogram [facility] Start: 11-23-2019 Influenza vaccination INFLUENZA (#1) [facility] Start: 06-18-2019 Zoster Vaccines (2 o f 2) Zoster Vaccines (2 of 2) [facility] Start: 05-29-2006 DIABETES SCREEN DIABETES SCREEN [facility] Start: 2006 SHINGRIX VACCINE (1 of 2) SHINGRIX VACCINE (1 of 2) [facility] [place] Start: 2006 Tuberculosis screening COLOR[facility] CANCER SCREENING,SEE MODIFIER [facility] [place] Start: 2006 Zoster Vaccines (1 o f 2) Zoster Vaccines (1 of 2) [facility] Start: 2001 LIPID SCREEN LIPID SCREEN [facility] [place] Start: 1996 Mammography MAMMOGRAM [facility] Start: 1986 HPV TESTING HPV TESTING [facility] Start: 1978 DTaP/Tdap/Td Vaccine s (1 - Tdap) DTaP/Tdap/Td Vaccines (1 - Tdap) [facility] Start: 1977 PAP TESTING PAP TESTING [facility] Start: 1975 Urine microalbumin profile DTAP,TDAP,TD (1 - Tdap) [facility] [place] Start: 1975 Urine screening for protein Diabetes: Urine Protein Screening [facility] Start: 1974 Diabetes mellitus screening Diabetes Screening [facility] Start: 1974 HEPATITIS C SCREENING HEPATITIS C [facility] Start: 1974 Hepatitis C screening Hepatitis C [facility] Start: 1974 HIV SCREENING HIV SCREENING [facility] Start: 1966 Diabetic foot examination Diabetes: Foot Exam [facility] Start: 1966 Glaucoma screening Diabetes: R etinopathy Screening [facility] Start: 1962 Pneumococcal Vaccine : 65+ Years (1 - PCV) Pneumococcal Vaccine: 65+ Years (1 - PCV) [facility] Start: 1956 COVID-19 Vaccine (#1) COVID-19 Vacci ne (#1) [facility] Start: 1956 Hemoglobin A1c measurement Diabetes: Hemoglobin A1C [facility] Start: 1956 Lipid panel Lipid Panel [facility] Start: 1956 Medicare Annual Wellness Visit Medicare Annual Wellness Visit (AWV) [facility] Start: 1956 Screening for malign ant neoplasm of colon [facility] Start: 1956 Screening for osteoporosis Bone Density Scan [facility] Cytology Cervical or vaginal smear or scraping study THINPREP PAP TEST Pathology and Cytology Routine Encounter for Papanicolaou smear for cervical cancer screening 12/31/2022 11:20 AM EDT [facility] Work Phone: Immunizations Immunization Date Immunization Notes Care Provider Eddy tompkins 01-24-2022 influenza virus vacc ine, unspecified formulation [facility] Work Phone: Payers Date Payer Category Payer Medicare [id number] 2023 Self-pay [id number] 2022 Unknown 2021 Miscellaneous or Other [facility] [id number] 2021 Unknown [id number] 2021 Unknown [id number] 2015 Medicare [id number] 2010 Unknown ANTHEM BLUE [facility] S AND BLUE SHIELD ANTHEM MEDIBLUE ACCESS [id number] 2010-Present PPO [id number] 2007 Medicare [id number] 2004 Medicare [id number] 2002 Unknown ZFERMINNATION MANDEEP [place] [id number] 2002-2015 Indemnity [id number] 2001 Unknown BW BWC GENERIC [id number] 2001-Present WC [id number] 1956 Unknown [id number] 1956 Unknown [id number] 1956 Unknown [id number] Medicare SELF PAY INSURANCE [id number] A [id number] Unknown [id number] Unknown [id number] Social History Date Type Detail Facility Start: 11-22-2010 End: 12-31-2022 Tobacco smoking status NHIS Current every day smoker [facility] Start: 11-22-2010 End: 02-05-2024 Cigarettes smoked current (pack per day) - Reported [facility] [place] Start: 11-22-2010 Alcohol intake Not Asked [facility] Start: 1955 Sex Assigned At Not on file [facility] Start: 09-20-2021 End: 09-25-2022 Tobacco smoking status MDIS Unknown if ever smoked [facility] Start: 09-20-2021 [facility] Start: 09-20-2021 Alone [facility] Start: 09-20-2021 Cigarettes [facility] Start: 1955 Sex Assigned At Female W [facility] History of tobacco use Cigarette Smoker [facility] Work Phone: Start: 12-31-2022 Tobacco use and exposure Smokeless tobacco non-user [facility] Work Phone: Start: 12-31-2022 End: 02-05-2024 Alcohol intake Lifetime non-drinker (finding) [facility] Work Phone: Start: 12-31-2022 End: 02-05-2024 Tobacco use panel [facility] Work Phone: Start: 12-21-2022 End: 02-05-2024 Exposure to SARS-CoV-2 (event) Not sure [facility] Medical Equipment Procedure Code Equipment Code Equipment Origin al Text Equipment Identifier Dates Excision, lesion, with full-thickness skin graft application AMNIOFIX, 2x6CM FDA Start: 12-29-2020 Excision, lesion, with full-thickness skin graft application AMNIOFIX, 2x6CM FDA Start: 12-29-2020 Excision, lesion, with full-thickness skin graft application AMNIOFIX, 2x6CM FDA Start: 12-29-2020 Excision, lesion, with full-thickness skin graft application AMNIOFIX, 2x6CM FDA Start: 12-29-2020 Excision, lesion, with full-thickness skin graft application AMNIOFIX, 2x6CM FDA Start: 12-29-2020 Excision, lesion, with full-thickness skin graft application AMNIOFIX, 2x6CM FDA Start: 12-29-2020 Excision, lesion, with full-thickness skin graft application AMNIOFIX, 2x6CM FDA Start: 12-29-2020 Excision, lesion, with full-thickness skin graft application AMNIOFIX, 2x6CM FDA Start: 12-29-2020 Excision, lesion, with full-thickness skin graft application AMNIOFIX, 2x6CM FDA Start: 12-29-2020 History of Present illness Narrative 12-31-2022 Marky Cabello MD - 12/31/2022 10:00 AM EDT Note Date & Type Note Facility 12-31-2022 History of Present illness Narrative Ellis Whelan is a 67 y.o. female who is here for a routine exam. PCP = Dejan Harrison MD Chief Complaint Patient presents with Gynecologic Exam Patient is here for her yearly exam and pap test. Patient does self breast exams and has no concerns at this time. Hysterectomy in 1981. Patient needs mammogram. Presents for annual exam. She voices no complaints and is doing well. Denies any bowel or bladder problems. Denies any breast problems. She had a previous hysterectomy. Past Medical History: Diagnosis Date Breast cancer screening by mammogram 11/05/2021 Encounter for full-term uncomplicated delivery Normal vaginal delivery Other conditions influencing health status Menstruation Pap test, as part of routine gynecological examination 11/19/2017 Reflex Negative Personal history of other medical treatment History of mammogram Past Surgical History: Procedure Laterality Date BREAST SURGERY 09/17/2022 Ruptured Sebaceous Cyst DILATION AND CURETTAGE OF UTERUS 1966 TOTAL VAGINAL HYSTERECTOMY 1981 Right Salpingoopherectomy TUBAL LIGATION Bilateral 1976 Past med hx and past surg hx reviewed and notable for: None Review of Systems: Constitutional: No fever or chills Respiratory: No shortness of breath, or cough Cardiovascular: No chest pain or syncope Breasts: No breast pain, no masses, no nipple discharge Gastrointestinal: No nausea, vomiting, or diarrhea, no abdominal pain Genitourinary: No dysuria or frequency Gynecology: Negative except as noted in history of present illness All other: All other systems reviewed and negative for complaint Objective BP 132/72 Ht 1.549 m (5' 1) Wt 71.1 kg (156 lb 12.8 oz) BMI 29.63 kg/m PHYSICAL EXAMINATION: Well-developed, well nourished, in no acute distress, alert and oriented x three, is pleasant and cooperative. HEENT: Clear. Pupils equal, round and reactive to light and accommodation. Extraocular muscles are intact. Oral mucosa pink without exudate. NECK: No lymphadenopathy, no thyromegaly. BREASTS: Symmetric, no palpable masses. No nipple discharge or retraction. LUNGS: Clear bilaterally. HEART: Regular rate and rhythm without murmurs. ABDOMEN: Normoactive bowel sounds, soft and nontender, no guarding or rebound tenderness, no CVA tenderness. EXTREMITIES: No clubbing, cyanosis or edema. NEUROLOGIC: Cranial nerves II-XII grossly intact. : Normal external female genitalia. Normal vulva and vagina. Normal urethral meatus, urethra and bladder. Noted surgical absence of the cervix and uterus. Well-healed vaginal cuff. Pap smear performed today. Actions performed during this visit include: - Clinical breast exam - Clinical pelvic exam Orders Placed This Encounter Procedures BI mammo bilateral screening tomosynthesis Standing Status: Future Standing Expiration Date: 03/02/2024 Order Specific Question: Reason for exam: Answer: Screening Order Specific Question: Radiologist to Determine Optimal Study Answer: Yes Order Specific Question: Release result to [place] Answer: Immediate [1] Order Specific Question: Is this exam part of a Research Study? If Yes, link this order to the research study Answer: No Problem List Items Addressed This Visit None Visit Diagnoses Encounter for Papanicolaou smear for cervical cancer screening - Primary Relevant Orders THINPREP PAP TEST Encounter for screening mammogram for breast cancer Relevant Orders BI mammo bilateral screening tomosynthesis Provider Impression: 1. Annual 2. Screening mammogram Thank you for coming to your annual exam. Your findings during the exam were normal. Please return for your next visit in 2 years. documented in this encounter [facility] Work Phone: Evaluation note Note Date & Type Note Facility Evaluation note No assessment information availa ble [facility] Work Phone: Evaluation note Note Date & Type Note Facility Evaluation note Diagnosis Onset Date Erythrocytosis chronic Leukocytosis chronic Erythrocytosis chronic Leukocytosis chronic Lymphocytosis resolved [id number] acute Tobacco use disorder, continuous acute [facility] Work Phone: Evaluation note Note Date & Type Note Facility Evaluation note Diagnosis Onset Date Delayed surgical wound healing acute Delayed surgical wound healing acute [facility] Work Phone: Evaluation note Note Date & Type Note Facility Evaluation note Diagnosis Onset Date Delayed surgical wound healing acute Delayed surgical wound healing acute Ruptured sebaceous cyst acut e Ruptured sebaceous cyst acut e [facility] Work Phone: Evaluation note Note Date & Type Note Facility Evaluation note Diagnosis Encounter for Papanicolaou smear for cervical cancer screening- Primary Encounter for screening mammogram for breast cancer documented in this encounter [facility] Work Phone: Evaluation note Note Date & Type Note Facility Evaluation note Diagnosis Encounter for screening mammogram for malignant neoplasm of breast documented in this encounter [facility] Work Phone: Reason for visit Narrative Imaging (Routine) - Authorized Note Date & Type Note Facility Reason for visit Narrative Specialty Diagnoses / Procedures Referred By Contac t Referred To Contact Radiology Diagnoses Encounter for screening mammogram for malignant neoplasm of breast Procedures BI mammo bilateral screening tomosynthesis Marky Cabello MD [address] [facility], [place] [address] Phone: tel: fax: Referral ID Status Reason Start Date Expiration Date Visits Requested Visits Authorized [id number] Authorized Perform Procedure 4 02/02/2025 1 1 [facility] Work Phone: Summary Purpose Family History No Family History Records Found Relationship Condition Age at Onset Recorded Date/T leonard Not Specified Malignant neoplasm of ovary Unknown Diabetes mellitus Unknown High blood cholesterol Unknown Malignant melanoma Unknown Family history of ma lignant neoplasm of skin Unknown Hypertension Unknown father Myocardial infarction Unknown mother Myocardial infarction Unknown brother Cardiac disease Unknown Unknown Family Member Name Dates Details Family history of diabetes m ellitus: Mother, Sister(V18.0, Z83.3) Status:Active Family history of hypertensi on: Mother, Father(V17.49, Z82.49) Status:Active Unknown Family Member Name Dates Details Family history of diabetes m ellitus: Mother, Sister(V18.0, Z83.3) Status:Active Family history of hypertensi on: Mother, Father(V17.49, Z82.49) Status:Active Advance Directives No Advanced Directives Records Found Advance Directive Response Recorded Date/ Time Living Will No September 20, 2021 8:16am Power of Garnett Machine Operator No September 20 8:16am Advance Directive Response Recorded Date/ Time Living Will No September 20, 2021 7:16am Power of [employer] Machine Operator No September 20 7:16am Chief Complaint and Reason for Visit Chief Complaint LABWORK Chief Complaint LABWORK 1YR LABS REVIEW MAMMO([facility]) ONC/HEM Lung cancer screening LUNG CA SCREENING CELIAC PROFILE, CRP Reason for Visit Erythrocytosis Leukocytosis Erythrocytosis Leukocytosis Lymphocytosis [id number] Tobacco use disorder, continuous Chief Complaint CYST UNDER BREAST RIGHT BREAST NON HEALING WOUND Packing incision of cyst under breast RC 09/25 Reason for Visit Delayed surgical wou nd healing Delayed surgical wound healing Chief Complaint CYST UNDER BREAST RIGHT BREAST NON HEALING WOUND Packing incision of cyst under breast RC 09/25 WOUND CHECK WOUND CHECK Reason for Visit Delayed surgical wou nd healing Delayed surgical wound healing Ruptured sebaceous cyst Ruptured sebaceous cyst Chief Complaint PT IS A NEW PT WHO WAS SEEN YEARS AGO, HERE TODAY FOR VAGINAL SORES ON HER VAGINAL AREA. STATES THEY ARE PAINFUL. HAS HAD IT FOR 2 MONTHS BUT THE PAIN IS GETTING WORSE. HAS NOTICED A SMALL BUMP ON HER RIGHT BREAST AND ABDOMEN. LMP: HYSTERECTOMY Reason for Referral Specialty Diagnoses / Procedures Referred By [place] Referred To Contact Radiology Diagnoses Encounter for screening mammogram for breast cancer Procedures BI mammo bilateral screening tomosynthesis Marky Cabello MD [facility] [address] [facility], [place] [address] Referral ID Status Reason Start Date Expiration Date Visits Requested Visits Authorized [id number] Authorized Perform Procedure 3 06/29/2023 1 1 Additional Source Comments INFORMATION SOURCE (unrecogn ized section and content) DATE CREATED AUTHOR 12/01/2017 [facility] DATE CREATED AUTHOR AUTHOR'S ORGANIZ ATION 12/03/2018 [facility] DATE CREATED AUTHOR AUTHOR'S ORGANIZ ATION 11/14/2021 [facility] DATE CREATED AUTHOR AUTHOR'S ORGANIZ ATION 06/30/2022 [facility] DATE CREATED AUTHOR AUTHOR'S ORGANIZ ATION 07/01/2022 [facility] DATE CREATED AUTHOR AUTHOR'S ORGANIZ ATION 01/18/2023 [facility] DATE CREATED AUTHOR AUTHOR'S ORGANIZ ATION 02/10/2024 [facility] DATE CREATED AUTHOR AUTHOR'S ORGANIZ ATION 05/16/2024 [facility] Source Comments (unrecognize d section and content) In the event this informatio n is protected by the Federal Confidentiality of Alcohol and Drug Abuse Patient Records regulations: The Federal rules restrict any use of the information to criminally investigate or prosecute any alcohol or drug abuse patient.[facility] Goals (unrecognized section and content) Goals may be documented in a n alternate sectionGoals may be documented in an alternate sectionGoals may be documented in an alternate sectionGoals may be documented in an alternate sectionGoals may be documented in an alternate sectionGoals may be documented in an alternate sectionGoals may be documented in an alternate sectionGoals may be documented in an alternate sectionGoals may be documented in an alternate section Care Teams (unrecognized sec tion and content) Team Status: Active Member Role Status Dates Dr. Renan Harrison MD Family Provider Active Dr. Renan Harrison MD Primary Care Provider Active Team Status: Inactive Member Role Status Dates Dr. Renan Harrison MD Primary Care Provider, Attending Provider Active Team Status: Inactive Member Role Status Dates Dr. Renan Harrison MD Primary Care Provider, Referring Provider Active Dr. Wale Mobley MD Attending Provider Active Team Status: Inactive Member Role Status Dates Dr. Renan Harrison MD Primary Care Provider Active Latisha YIN PA-C Attending Provider Active Dr. Wale Mobley MD Referring Provider Active Team Status: Inactive Member Role Status Dates Dr. Renan Harrison MD Primary Care Provider Active Dr. Wale Mobley MD Attending Provider, Referring Provider Active Team Status: Inactive Member Role Status Dates Dr. Renan Harrison MD Primary Care Provider, Referring Provider Active Latisha YIN PA-C Attending Provider Active [employer] Relationship Specialty Start Date End Date Dejan Harrison MD [address] [facility] [address] [address] PCP - General 10/22/20 [employer] Relationship Specialty Start Date End Date Dejan Harrison MD [address] [facility] [address] [address] PCP - General 10/22/20 Reason for Visit (unrecogniz ed section and content) Reason Comments Gynecologic Exam Patient is here for her yearly exam and pap test. Patient does self breast exams and has no concerns at this time. Hysterectomy in 1981. Patient needs mammogram. FOR RECORDS PERTAINING TO PATIENTS WHO ARE OR HAVE BEEN ENROLLED IN A CHEMICAL DEPENDENCY/SUBSTANCEABUSE PROGRAM, SOME INFORMATION MAY BE OMITTED. This clinical summary was aggregated from multiple sources. Caution should be exercised in using it in the provision of clinical care. This summary normalizes information from multiple sources, and as a consequence, information in this document may materially change the coding, format and clinical context of patient data. In addition, data may be omitted in some cases. CLINICAL DECISIONS SHOULD BE BASED ON THE PRIMARY CLINICAL RECORDS. [employer] provides no warranty or guarantee of the accuracy or completeness of information in this document.
[2024-10-28 21:32] LABS: Xtra Tube Kwok EXTRA TUBE
== END | disposition home or self-care (01) ==
LOC: POLAB3 13:31
PROVIDERS: PCP Family Medicine Geriatric Medicine; Visit Provider Family Medicine Geriatric Medicine
DX: I10 Essential (primary) hypertension (principal); E11.42 Type 2 diabetes mellitus with diabetic polyneuropathy; E55.9 Vitamin D deficiency, unspecified
CPT/HCPCS: 36415; 80053; 82306; 84443; 85025

== ENCOUNTER → 2025-01-10 | Outpatient (CLI) | payer MEDICARE, OTHER, SELFPAY ==
[2025-01-10 15:22] LABS: Anion Gap 12 (5-15); BUN 12 mg/dL (4-19); BUN/Creat Ratio 14.4 RATIO (10-20); Calcium,Total 9.6 mg/dL (7.6-11.0); Carbon Dioxide 26.4 mmol/L (21.0-32.0); Chloride 102 mmol/L (98-108); Glucose 92 mg/dL (70-99); Potassium 4.1 mmol/L (3.3-5.1)
[2025-01-10 22:29] LABS: Xtra Tube Kwok EXTRA TUBE
== END | disposition home or self-care (01) ==
LOC: POLAB3 14:29
PROVIDERS: PCP Family Medicine Geriatric Medicine; Visit Provider Family Medicine Geriatric Medicine
DX: I10 Essential (primary) hypertension (principal)
CPT/HCPCS: 36415; 80048